=== PATIENT | female | born 1940 | race Caucasian/White ===

== ENCOUNTER 2016-12-08 07:58 | Emergency (ER) | payer OTHER ==
[~2016-12-08] VITALS: Ht 160 cm; Wt 72.5 kg
[~2016-12-08 07:58] MED LIST: DILT300C24 PO; LISI-788 PO; SIMV40TA4 PO
[2016-12-08 08:03] VITALS: TEMP 36.4; Ht 160 cm; Wt 72.5 kg
[2016-12-08] MEDS ORDERED: SODIUM CHLORIDE 0.9% 500ML 500 ML IV STA (08:29)
[2016-12-08 08:54] LABS: BASO % 0.2 %; BASO ABS # 0.02 K/uL (0-0.2); COMPLETE YES; EOS % 0.2 %; HEMATOCRIT 38.4 % (37-47); IG% 0.3 %; LYMPH % 7.7 %; LYMPH ABS # 0.93 K/uL (1.2-3.4); MEAN CELL VOLUME 93.2 fL (80-100); MEAN CORPUSCULAR HEMOGLOBIN 34.5 pg (25-34); MEAN PLATELET VOLUME 9.1 fL (7.4-10.4); MONO % 7.2 %; NEUT % 84.4 %; PLATELET COUNT 350 K/uL (130-400); RED BLOOD COUNT 4.12 M/uL (4.2-5.4); WHITE BLOOD COUNT 12.14 K/uL (4.8-10.8)
--- NOTE | 2016-12-08 09:00 | EMERGENCY ROOM VISIT NOTE ---
ED Visit Note First contact with patient: 08:04 I have seen and examined this patient with Lawson Camejo and generally agree with the treatment plan as discussed. Current/Historical Medications Scheduled Diltiazem Hcl Extended Release (Taztia Xt), 300 MG PO HS Lisinopril/Hctz (Zestoretic 20MG/25MG), 1 TAB PO DAILY Simvastatin (Zocor), 40 MG PO QPM Allergies Coded Allergies: Diazepam (Verified Allergy, Unknown, LISTED BY MD ADVERSE RX, 12/08/16) Meperidine (Verified Allergy, Unknown, 12/08/16) Vital Signs Date Time Temp Pulse Resp B/P Pulse Ox O2 Delivery O2 Flow Rate FiO2 12/08/16 08:45 75 12/08/16 08:39 Room Air 12/08/16 08:03 36.4 75 18 155/76 97 Room Air Laboratory Results 12/08/16 08:40 Red Blood Count 4.12, Mean Corpuscular Volume 93.2, Mean Corpuscular Hemoglobin 34.5, Mean Corpuscular Hemoglobin Concent 37.0, Mean Platelet Volume 9.1, Neutrophils (%) (Auto) 84.4, Lymphocytes (%) (Auto) 7.7, Monocytes (%) (Auto) 7.2, Eosinophils (%) (Auto) 0.2, Basophils (%) (Auto) 0.2, Neutrophils # (Auto) 10.24, Lymphocytes # (Auto) 0.93, Monocytes # (Auto) 0.88, Eosinophils # (Auto) 0.03, Basophils # (Auto) 0.02 Test 12/08/16 08:40 12/08/16 08:45 White Blood Count 12.14 K/uL (4.8-10.8) Red Blood Count 4.12 M/uL (4.2-5.4) Hemoglobin 14.2 g/dL (12.0-16.0) Hematocrit 38.4 % (37-47) Mean Corpuscular Volume 93.2 fL (80-100) Mean Corpuscular Hemoglobin 34.5 pg (25-34) Mean Corpuscular Hemoglobin Concent 37.0 g/dl (32-36) Platelet Count 350 K/uL (130-400) Mean Platelet Volume 9.1 fL (7.4-10.4) Neutrophils (%) (Auto) 84.4 % Lymphocytes (%) (Auto) 7.7 % Monocytes (%) (Auto) 7.2 % Eosinophils (%) (Auto) 0.2 % Basophils (%) (Auto) 0.2 % Neutrophils # (Auto) 10.24 K/uL (1.4-6.5) Lymphocytes # (Auto) 0.93 K/uL (1.2-3.4) Monocytes # (Auto) 0.88 K/uL (0.11-0.59) Eosinophils # (Auto) 0.03 K/uL (0-0.5) Basophils # (Auto) 0.02 K/uL (0-0.2) RDW Standard Deviation 40.2 fL (36.4-46.3) RDW Coefficient of Variation 11.8 % (11.5-14.5) Immature Granulocyte % (Auto) 0.3 % Immature Granulocyte # (Auto) 0.04 K/uL (0.00-0.02) Departure Information Referrals Zaheer Merlos M.D. (PCP) Patient Instructions My [facility] [address]
--- NOTE | 2016-12-08 09:05 | DIAGNOSTIC IMAGING REPORT ---
CHEST ONE VIEW PORTABLE HISTORY: EVALUATE ALTERED MENTAL STATUS/WEAKNESS COMPARISON: Chest 04/05/2016. FINDINGS: The lungs are clear. Cardiac silhouette is normal in size. No pleural effusions. No pneumothorax. IMPRESSION: No acute process. Electronically signed by: Dharmesh Reddy M.D. 12/08/2016 9:03 AM Dictated Date/Time: 12/08/2016 9:01 AM
[2016-12-08 09:06] LABS: PROTHROMBIN TIME (PATIENT) 10.4 SECONDS (9.0-12.0)
--- NOTE | 2016-12-08 09:06 | DIAGNOSTIC IMAGING REPORT ---
LEFT ANKLE MIN 3 VIEWS ROUTINE CLINICAL HISTORY: Left ankle pain. Weakness. COMPARISON: Left foot radiograph April 06, 2011. FINDINGS: Alignment of the left ankle is anatomic. There is no acute fracture. There is moderate plantar calcaneal spurring. Irregularity of the fibular tip is likely old. There may be subchondral lucency and sclerosis of the medial talar dome. This measures approximately 5 mm in extent. IMPRESSION: 1. No acute fracture or dislocation of the left ankle. 2. Possible osteochondral abnormality of the medial talar dome. Electronically signed by: Madan Fletcher M.D. 12/08/2016 9:04 AM Dictated Date/Time: 12/08/2016 9:02 AM
[2016-12-08 09:11] LABS: URINE APPEARANCE CLOUDY (CLEAR); URINE BILIRUBIN NEG (NEG); URINE COLOR YELLOW; URINE EPITHELIAL CELL AUTO >30 /lpf (0-5); URINE NITRITE NEG (NEG); UROBILINOGEN NEG (NEG)
[2016-12-08 09:12] LABS: MANUAL MICROSCOPIC REQUIRED? NO; REVIEW REQ? NO
[2016-12-08 09:19] LABS: BUN/CREATININE RATIO 13.7 (10-20); CALCIUM 9.4 mg/dl (8.5-10.1); CREATININE 1.1 mg/dl (0.60-1.20); MAGNESIUM 1.8 mg/dl (1.8-2.4); POTASSIUM 3.8 mmol/L (3.5-5.1)
[2016-12-08 09:28] LABS: PHOSPHORUS 2.9 mg/dl (2.5-4.9); THYROID STIMULATING HORMONE 2.87 uIu/ml (0.300-4.500)
--- NOTE | 2016-12-08 09:31 | DIAGNOSTIC IMAGING REPORT ---
CT OF THE HEAD WITHOUT CONTRAST CLINICAL HISTORY: Possible syncope. COMPARISON STUDY: Head CT April 06, 2016. CT DOSE: 767.83 mGy.cm TECHNIQUE: Helical axial images of the head were obtained without IV contrast. Automated exposure control was utilized for the study. FINDINGS: No acute intracranial hemorrhage, midline shift or mass effect is present. Ventricular system is stable. Basilar cisterns are patent. There are no extra-axial collections. White matter hypodensity suggests small vessel disease. There are no findings to suggest acute dural sinus thrombosis or acute territorial infarct. Visualized portions of the sinuses and mastoid air cells are clear. IMPRESSION: No acute intracranial findings. No significant change since prior exam. Electronically signed by: Madan Fletcher M.D. 12/08/2016 9:30 AM Dictated Date/Time: 12/08/2016 9:27 AM
[2016-12-08 09:41] VITALS: BP 153/70; PULSE 66; O2SAT 96
[2016-12-08] MEDS ORDERED: ACETAMINOPHEN 500 MG TAB PO ONE (11:12)
--- NOTE | 2016-12-08 14:19 | EMERGENCY ROOM VISIT NOTE ---
History First contact with patient: 08:04 Chief Complaint: FALL Stated Complaint: FELL THIS AM, LEFT ANKLE PAIN History of Present Illness The patient is a 76 year old female who presents to the Emergency Room with complaints of injuries after she fell in her kitchen this morning. The patient reports that she felt fine yesterday and this morning upon awakening. The patient is uncertain whether she tripped and fell, but does not know for sure. The patient reports that she had a seizure last March. She was not put on any medications. She believes that it may have been because of stress due to her 's last November. The patient currently feels fine except for left ankle pain. She denies any recent chest pain, shortness of breath, abdominal pain, urinary symptoms, diarrhea or headaches. She has been healthy so far this winter. She denies any prior cardiopulmonary history. She currently rates her ankle discomfort a 2 out of 10. Review of Systems HEENT: Denies dizziness, visual problems, hearing loss, tinnitus. Denies difficulty swallowing or oral lesions. PULMONARY: Denies cough, shortness of breath, sputum production or hemoptysis. CARDIOVASCULAR: Denies chest pain, palpitations, dyspnea on exertion, orthopnea or peripheral edema. GASTROINTESTINAL: Denies diarrhea, constipation, nausea, vomiting, or abdominal pain. GENITOURINARY: Denies dysuria, frequency, urgency or nocturia. NEUROLOGIC: Prior history of seizure. MUSCULOSKELETAL: Denies history of joint tenderness/swelling. SKIN: Denies rashes or lesions. PSYCHIATRIC: Denies history of depression or mental illness. ENDOCRINE: Denies history of diabetes or thyroid disorders. Past Medical/Surgical History Medical Problems: (1) Acute Kidney Failure, Unspecified (2) Anemia Nos (3) Anxiety State Nos (4) Aortic Valve Disorder (5) Diab Macrina Wo Compl, Type Ii Or Unspec Type, Not Uncntrld (6) Hypercholesterolemia (7) Hypertension Nos (8) Hypothyroidism, Unspecified (9) Syncope and collapse Family History FH: diabetes mellitus FH: heart disease FH: hypertension Social History Smoking Status: Former Smoker Alcohol Use: none Drug Use: none Marital Status: Occupation Status: retired Current/Historical Medications Scheduled Diltiazem Hcl Extended Release (Taztia Xt), 300 MG PO HS Lisinopril/Hctz (Zestoretic 20MG/25MG), 1 TAB PO DAILY Simvastatin (Zocor), 40 MG PO QPM Allergies Coded Allergies: Diazepam (Verified Allergy, Unknown, LISTED BY MD ADVERSE RX, 12/08/16) Meperidine (Verified Allergy, Unknown, 12/08/16) Physical Exam Vital Signs Date Time Temp Pulse Resp B/P Pulse Ox O2 Delivery O2 Flow Rate FiO2 12/08/16 09:41 66 16 153/70 96 Room Air 12/08/16 08:45 75 12/08/16 08:39 Room Air 12/08/16 08:03 36.4 75 18 155/76 97 Room Air Physical Exam CONSTITUTIONAL: Healthy and well nourished. Alert and oriented X 3 with positive affect. GCS 15. Patient does not appear in any acute distress. HEENT: Normocephalic, atraumatic. Pupils equal, round and reactive. No epistaxis, hemotympanum, subconjunctival hemorrhage, raccoon's eyes or Gray sign. NECK: Full active range of motion without discomfort. RESPIRATORY: Clear to auscultation bilaterally with no wheezing, crackles, rhonchi or stridor. CARDIOVASCULAR: Regular rate and rhythm with no murmurs, rubs or gallops. GASTROINTESTINAL: Bowel sounds present in all quadrants. Soft and nontender to palpation. MUSCULOSKELETAL: Mentation shows mild tenderness to palpation about the left ankle. No obvious soft tissue edema, ecchymosis or open wounds. Negative anterior draw. No tenderness to palpation through the dorsal midfoot, metatarsals, phalanges, calcaneus, Achilles tendon or proximal fibular region. Pedal pulses are intact. Equal upsetting machine operator strength bilaterally. INTEGUMENTARY: No rash or other significant dermatologic conditions noted. NEUROLOGIC: Cranial nerves II-XII grossly intact. Upper and lower extremities are sensory intact. Medical Decision & Procedures ER Provider Diagnostic Interpretation: My interpretation of an ECG shows a normal sinus rhythm of 69 bpm with a PVC. No ST elevation, depression or other conduction abnormalities noted. My interpretation of a portable chest x-ray does not show any consolidations, pneumothorax, mediastinal widening or cardiac prominence. Radiologist report is as follows: CHEST ONE VIEW PORTABLE HISTORY: EVALUATE ALTERED MENTAL STATUS/WEAKNESS COMPARISON: Chest 04/05/2016. FINDINGS: The lungs are clear. Cardiac silhouette is normal in size. No pleural effusions. No pneumothorax. IMPRESSION: No acute process. My interpretation of a left ankle x-ray does not show any acute fractures, dislocation or ankle mortise asymmetry. Radiologist does make mention of a possible also chondral defect of the medial talar dome. Radiologist report is as follows: LEFT ANKLE MIN 3 VIEWS ROUTINE CLINICAL HISTORY: Left ankle pain. Weakness. COMPARISON: Left foot radiograph April 06, 2011. FINDINGS: Alignment of the left ankle is anatomic. There is no acute fracture. There is moderate plantar calcaneal spurring. Irregularity of the fibular tip is likely old. There may be subchondral lucency and sclerosis of the medial talar dome. This measures approximately 5 mm in extent. IMPRESSION: 1. No acute fracture or dislocation of the left ankle. 2. Possible osteochondral abnormality of the medial talar dome. Noncontrast CT of the head does not show any intracranial bleed, midline shift or mass effect. Radiologist report is as follows: CT OF THE HEAD WITHOUT CONTRAST CLINICAL HISTORY: Possible syncope. COMPARISON STUDY: Head CT April 06, 2016. CT DOSE: 767.83 mGy.cm TECHNIQUE: Helical axial images of the head were obtained without IV contrast. Automated exposure control was utilized for the study. FINDINGS: No acute intracranial hemorrhage, midline shift or mass effect is present. Ventricular system is stable. Basilar cisterns are patent. There are no extra-axial collections. White matter hypodensity suggests small vessel disease. There are no findings to suggest acute dural sinus thrombosis or acute territorial infarct. Visualized portions of the sinuses and mastoid air cells are clear. IMPRESSION: No acute intracranial findings. No significant change since prior exam. Laboratory Results 12/08/16 08:40 Red Blood Count 4.12, Mean Corpuscular Volume 93.2, Mean Corpuscular Hemoglobin 34.5, Mean Corpuscular Hemoglobin Concent 37.0, Mean Platelet Volume 9.1, Neutrophils (%) (Auto) 84.4, Lymphocytes (%) (Auto) 7.7, Monocytes (%) (Auto) 7.2, Eosinophils (%) (Auto) 0.2, Basophils (%) (Auto) 0.2, Neutrophils # (Auto) 10.24, Lymphocytes # (Auto) 0.93, Monocytes # (Auto) 0.88, Eosinophils # (Auto) 0.03, Basophils # (Auto) 0.02 12/08/16 08:40 Test 12/08/16 08:40 12/08/16 08:45 12/08/16 08:50 White Blood Count 12.14 K/uL (4.8-10.8) Red Blood Count 4.12 M/uL (4.2-5.4) Hemoglobin 14.2 g/dL (12.0-16.0) Hematocrit 38.4 % (37-47) Mean Corpuscular Volume 93.2 fL (80-100) Mean Corpuscular Hemoglobin 34.5 pg (25-34) Mean Corpuscular Hemoglobin Concent 37.0 g/dl (32-36) Platelet Count 350 K/uL (130-400) Mean Platelet Volume 9.1 fL (7.4-10.4) Neutrophils (%) (Auto) 84.4 % Lymphocytes (%) (Auto) 7.7 % Monocytes (%) (Auto) 7.2 % Eosinophils (%) (Auto) 0.2 % Basophils (%) (Auto) 0.2 % Neutrophils # (Auto) 10.24 K/uL (1.4-6.5) Lymphocytes # (Auto) 0.93 K/uL (1.2-3.4) Monocytes # (Auto) 0.88 K/uL (0.11-0.59) Eosinophils # (Auto) 0.03 K/uL (0-0.5) Basophils # (Auto) 0.02 K/uL (0-0.2) RDW Standard Deviation 40.2 fL (36.4-46.3) RDW Coefficient of Variation 11.8 % (11.5-14.5) Immature Granulocyte % (Auto) 0.3 % Immature Granulocyte # (Auto) 0.04 K/uL (0.00-0.02) Prothrombin Time 10.4 SECONDS (9.0-12.0) Prothromb Time International Ratio 1.0 (0.9-1.1) Anion Gap 11.0 mmol/L (3-11) Est Creatinine Clear Calc Drug Dose 41.5 ml/min Estimated GFR () 56.5 Estimated GFR (Non- 48.7 BUN/Creatinine Ratio 13.7 (10-20) Calcium Level 9.4 mg/dl (8.5-10.1) Phosphorus Level 2.9 mg/dl (2.5-4.9) Magnesium Level 1.8 mg/dl (1.8-2.4) Total Bilirubin 0.6 mg/dl (0.2-1) Direct Bilirubin 0.1 mg/dl (0-0.2) Aspartate Amino Transf (AST/SGOT) 24 U/L (15-37) Alanine Aminotransferase (ALT/SGPT) 25 U/L (12-78) Alkaline Phosphatase 108 U/L (45-117) Total Creatine Kinase 111 U/L (26-192) Pro-B-Type Natriuretic Peptide 110 pg/ml (0-1800) Total Protein 7.4 gm/dl (6.4-8.2) Albumin 3.9 gm/dl (3.4-5.0) Thyroid Stimulating Hormone (TSH) 2.870 uIu/ml (0.300-4.500) Urine Color YELLOW Urine Appearance CLOUDY (CLEAR) Urine pH 6.0 (4.5-7.5) Urine Specific [place] 1.020 (1.000-1.030) Urine Protein TRACE (NEG) Urine Glucose (UA) NEG (NEG) Urine Ketones TRACE (NEG) Urine Occult Blood NEG (NEG) Urine Nitrite NEG (NEG) Urine Bilirubin NEG (NEG) Urine Urobilinogen NEG (NEG) Urine Leukocyte Esterase SMALL (NEG) Urine WBC (Auto) 10-30 /hpf (0-5) Urine RBC (Auto) 0-4 /hpf (0-4) Urine Hyaline Casts (Auto) 1-5 /lpf (0-5) Urine Epithelial Cells (Auto) >30 /lpf (0-5) Urine Bacteria (Auto) 1+ (NEG) Bedside Troponin I 0.000 ng/ml (0-0.045) The above labs were reviewed. Medications Administered Medications (Trade) Dose Ordered Sig/Kecia Route Start Time Stop Time Status Last Admin Dose Admin Sodium Chloride (Nss 500ml) 500 ml @ 999 mls/hr Q31M STAT IV 12/08/16 08:29 12/08/16 08:59 DC 2/16/17 08:29 999 MLS/HR Acetaminophen (Tylenol Tab) 1,000 mg STK-MED ONCE PO 12/08/16 11:12 12/08/16 11:14 DC 12/08/16 11:12 1,000 MG ED Course Patient history and physical exam were performed. Nurse's notes were reviewed. The patient refused any analgesics. IV access was established, and labs were drawn. The patient was hydrated with a 500 mL normal saline bolus. Review of labs shows no significant acute findings. ECG and portable chest x-ray were normal. Left ankle x-ray does not show any acute fractures or mortise asymmetry. A possible osteochondral defect is noted. It does not appear acute. Noncontrast CT of the head was also normal. The case was discussed with Dr. Rose, ED attending physician, who agrees with workup and plan of care. The patient was encouraged to intermittently apply ice to the ankle. Minimize weightbearing until symptoms improve. An ankle gel splint was applied. I did encourage her to follow-up with her PCP within the next 2-3 days for reevaluation. She did request that we call the office for an appointment. Our senior case manager was able to schedule an appointment for her Monday morning at 9 AM. The patient was instructed to return to the emergency department for any recurrent syncope, chest pain, shortness of breath or other concerning symptoms. The patient was also encouraged to remain well-hydrated. The patient was happy with plan of care, voiced understanding of all discharge instructions, and denied any significant discomfort at the time of discharge. Medical Decision Impression Primary Impression: Syncope and collapse Additional Impression: Left ankle sprain Departure Information Referrals RV. Newby MD (PCP) Patient Instructions My [facility] Problem Qualifiers Additional Impression: Left ankle sprain Encounter type: initial encounter Involved ligament of ankle: unspecified ligament Qualified Codes: S93.402A - Sprain of unspecified ligament of left ankle, initial encounter
[2017-07-11] MEDS ORDERED: DSY50 PO (14:09)
[2017-07-11] MEDS ORDERED: VTMD1000 PO (14:09)
[2017-07-11] MEDS ORDERED: ZLF50 PO (14:09)
[2017-07-11] MEDS ORDERED: ARC5 PO (14:09)
== END 2016-12-08 11:19 | disposition home or self-care (01) ==
LOC: C.EDB 08:00
DX: R55 Syncope and collapse (principal); S93.402A Sprain of unspecified ligament of left ankle, initial encounter; W19.XXXA Unspecified fall, initial encounter; Y92.010 Kitchen of single-family (private) house as the place of occurrence of the external cause; N17.9 Acute kidney failure, unspecified; D64.9 Anemia, unspecified; F41.9 Anxiety disorder, unspecified; I35.8 Other nonrheumatic aortic valve disorders; E11.9 Type 2 diabetes mellitus without complications; E78.00 Pure hypercholesterolemia, unspecified; I10 Essential (primary) hypertension; E03.9 Hypothyroidism, unspecified; Z83.3 Family history of diabetes mellitus; Z82.49 Family history of ischemic heart disease and other diseases of the circulatory system; Z87.891 Personal history of nicotine dependence; Z79.899 Other long term (current) drug therapy

== ENCOUNTER 2017-02-15 14:12 | Emergency (ER) | payer OTHER ==
[~2017-02-15] VITALS: Ht 160 cm; Wt 73.0 kg
[2017-02-15 14:29] VITALS: TEMP 36.8; Ht 160 cm; Wt 73.0 kg
--- NOTE | 2017-02-15 15:40 | EMERGENCY ROOM VISIT NOTE ---
History Report prepared by Toribio: Chris Carty Under the Supervision of: Dr. Leonard Tinsley D.O. First contact with patient: 14:55 Chief Complaint: PSYCHIATRIC PROBLEMS Stated Complaint: NERVOUS,ANXIOUS,FORGETFULLNESS History of Present Illness The patient is a 76 year old female who presents to the Emergency Room with complaints of wanting a sudden psychiatric evaluation beginning just prior to arrival. As per cousin, the patient received a letter by [employer] to turn in her license by February 21, or the police would come get it from the patient. She states she brought in the patient to achieve clearance to keep her license. The cousin notes the patient has been experiencing forgetfulness for the past year, since her in December 2015. She states that the patient has been consistent with her forgetfulness over the past year. The cousin notes the patient has seen her PCP for her forgetfulness and this has not changed for the past year. The patient denies recent falls, recent trauma, and taking blood thinners. Pt denies suicidal and homicidal ideation, headache, change in vision , fevers, chest pain, shortness of breath, nausea, vomiting, diarrhea, pain with urination, and melena. Source of History: patient, family (cousin) Onset: just prior to arrival Position: other (global) Quality: other (wanting psych evaluation) Timing: other (sudden) Note: Associated symptoms: persistent forgetfulness beginning one year ago. Review of Systems See HPI for pertinent positives & negatives. A total of 10 systems reviewed and were otherwise negative. Past Medical & Surgical Medical Problems: (1) Acute Kidney Failure, Unspecified (2) Anemia Nos (3) Anxiety State Nos (4) Aortic Valve Disorder (5) Diab Macrina Wo Compl, Type Ii Or Unspec Type, Not Uncntrld (6) Hypercholesterolemia (7) Hypertension Nos (8) Hypothyroidism, Unspecified (9) Syncope and collapse Family History FH: diabetes mellitus FH: heart disease FH: hypertension Social History Smoking Status: Former Smoker Alcohol Use: none Drug Use: none Marital Status: Occupation Status: retired Current/Historical Medications Scheduled Diltiazem Hcl Extended Release (Taztia Xt), 300 MG PO HS Lisinopril/Hctz (Zestoretic 20MG/25MG), 1 TAB PO DAILY Simvastatin (Zocor), 40 MG PO QPM Allergies Coded Allergies: Diazepam (Verified Allergy, Unknown, LISTED BY MD ADVERSE RX, 02/15/17) Meperidine (Verified Allergy, Unknown, 02/15/17) Physical Exam Vital Signs Date Time Temp Pulse Resp B/P Pulse Ox O2 Delivery O2 Flow Rate FiO2 02/15/17 18:25 62 16 172/69 98 02/15/17 16:41 62 16 122/57 97 Room Air 02/15/17 14:29 36.8 76 18 146/67 95 Room Air Physical Exam GENERAL: sitting up in bed, alert, well appearing, well nourished, no distress, non-toxic EYE EXAM: normal conjunctiva, PERRL and EOM's intact OROPHARYNX: no exudate, no erythema, lips, buccal mucosa, and tongue normal and mucous membranes are moist NECK: supple, no nuchal rigidity, no adenopathy, non-tender LUNGS: Clear to auscultation. Normal chest wall mechanics HEART: no murmurs, S1 normal and S2 normal ABDOMEN: abdomen soft, non-tender, normo-active bowel sounds, no masses, no rebound or guarding. BACK: Back is symmetrical on inspection and there is no deformity, no midline tenderness, no CVA tenderness. SKIN: no rashes and no bruising UPPER EXTREMITIES: upper extremities are grossly normal. LOWER EXTREMITIES: No pitting edema. NEURO EXAM: Alert, oriented to person, place, but not year, cranial nerves II- XII intact, normal speech, no weakness of arms, no weakness of legs. PSYCH: Denies homicidal and suicidal ideation. Medical Decision & Procedures Laboratory Results 02/15/17 15:50 Red Blood Count 4.10, Mean Corpuscular Volume 92.2, Mean Corpuscular Hemoglobin 33.9, Mean Corpuscular Hemoglobin Concent 36.8, Mean Platelet Volume 9.1, Neutrophils (%) (Auto) 71.3, Lymphocytes (%) (Auto) 19.1, Monocytes (%) (Auto) 8.9, Eosinophils (%) (Auto) 0.2, Basophils (%) (Auto) 0.2, Neutrophils # (Auto) 8.55, Lymphocytes # (Auto) 2.29, Monocytes # (Auto) 1.06, Eosinophils # (Auto) 0.02, Basophils # (Auto) 0.02 02/15/17 15:50 Test 02/15/17 15:45 4/26/17 15:50 Urine Color DK YELLOW Urine Appearance CLOUDY (CLEAR) Urine pH 5.0 (4.5-7.5) Urine Specific Mize 1.023 (1.000-1.030) Urine Protein NEG (NEG) Urine Glucose (UA) TRACE (NEG) Urine Ketones TRACE (NEG) Urine Occult Blood NEG (NEG) Urine Nitrite NEG (NEG) Urine Bilirubin NEG (NEG) Urine Urobilinogen NEG (NEG) Urine Leukocyte Esterase SMALL (NEG) Urine WBC (Auto) 10-30 /hpf (0-5) Urine RBC (Auto) 0-4 /hpf (0-4) Urine Hyaline Casts (Auto) 1-5 /lpf (0-5) Urine Epithelial Cells (Auto) >30 /lpf (0-5) Urine Bacteria (Auto) 1+ (NEG) White Blood Count 11.97 K/uL (4.8-10.8) Red Blood Count 4.10 M/uL (4.2-5.4) Hemoglobin 13.9 g/dL (12.0-16.0) Hematocrit 37.8 % (37-47) Mean Corpuscular Volume 92.2 fL (80-100) Mean Corpuscular Hemoglobin 33.9 pg (25-34) Mean Corpuscular Hemoglobin Concent 36.8 g/dl (32-36) Platelet Count 411 K/uL (130-400) Mean Platelet Volume 9.1 fL (7.4-10.4) Neutrophils (%) (Auto) 71.3 % Lymphocytes (%) (Auto) 19.1 % Monocytes (%) (Auto) 8.9 % Eosinophils (%) (Auto) 0.2 % Basophils (%) (Auto) 0.2 % Neutrophils # (Auto) 8.55 K/uL (1.4-6.5) Lymphocytes # (Auto) 2.29 K/uL (1.2-3.4) Monocytes # (Auto) 1.06 K/uL (0.11-0.59) Eosinophils # (Auto) 0.02 K/uL (0-0.5) Basophils # (Auto) 0.02 K/uL (0-0.2) RDW Standard Deviation 38.7 fL (36.4-46.3) RDW Coefficient of Variation 11.5 % (11.5-14.5) Immature Granulocyte % (Auto) 0.3 % Immature Granulocyte # (Auto) 0.03 K/uL (0.00-0.02) Anion Gap 7.0 mmol/L (3-11) Est Creatinine Clear Calc Drug Dose 38.2 ml/min Estimated GFR () 50.8 Estimated GFR (Non- 43.9 BUN/Creatinine Ratio 18.0 (10-20) Calcium Level 9.6 mg/dl (8.5-10.1) Total Bilirubin 0.3 mg/dl (0.2-1) Direct Bilirubin < 0.1 mg/dl (0-0.2) Aspartate Amino Transf (AST/SGOT) 20 U/L (15-37) Alanine Aminotransferase (ALT/SGPT) 28 U/L (12-78) Alkaline Phosphatase 129 U/L (45-117) Total Protein 7.7 gm/dl (6.4-8.2) Albumin 4.2 gm/dl (3.4-5.0) Lipase 269 U/L (73-393) Laboratory results per my review. Medications Administered Medications (Trade) Dose Ordered Sig/Kecia Route Start Time Stop Time Status Last Admin Dose Admin Sodium Chloride (Nss 500ml) 500 ml @ 999 mls/hr Q31M STAT IV 02/15/17 16:31 02/15/17 17:01 DC 02/15/17 16:31 999 MLS/HR ED Course ED COURSE: Vital signs were reviewed and showed normal vitals. The patients medical record was reviewed The above diagnostic studies were performed and reviewed. ED treatments and interventions as stated above. 1458: The patient was evaluated in room A6. A complete history and physical examination was performed. It is noted Lisette, the psychiatric case managers, discussed the patient's case with the patient's PCP. It is noted the PCP was the one who petitioned the letter. The office of aging is already involved. 1631: Ordered Sodium Chloride 500 ml @ 999 mls/hr IV. 1651: Updated the patient at this time. The patient and her cousin do not want imagine done. They are comfortable with the plan. 1724: I spoke to SUJEY Mejia (Internal Medicine) about the patient's case, and the patient will follow up with her. 1803: Upon reevaluation, the patient is doing well.I discussed my findings with the patient and she understands and agrees with the treatment plan. Based on the patients age, coexisting illnesses, exam and lab findings the decision to treat as an outpatient was made. The patient remained stable while under my care. The patient appeared well at the time of discharge. Medical Decision Differential diagnosis: Etiologies such as mood disorder, infection, hypoglycemia, electrolyte abnormalities, cardiac sources, intracerebral event, toxicologic, neurologic, as well as others were entertained. Patient is a 76-year-old female brought in by her cousin as they've received a pen that form stating that she is losing her license in February. They came in for an evaluation to see if they can get this back. Patient denies all complaints. She is not oriented to year. Family notes that this has been present for the past year. Nothing has worsened recently. Patient is otherwise completely neurologically intact. Labs were obtained and show no significant leukocytosis or anemia. BMP shows a mild hyponatremia at 128. Upon review of her chart previous sodiums were 131 and 130 respectively. Bilirubin along with LFTs and lipase was unremarkable. UA was contaminated with multiple epithelial cells. Patient has no urinary complaints. Likely contaminant. Discussed with PCP and they'll follow her up and notes that none of this is new. Based on this I felt no need to CT her head. Discussed with Pt concerning signs and symptoms to watch out for. Pt was instructed to follow up with their PCP and discussed with the patient their option to return to the ED at anytime for persistent or worsening symptoms. The appropriate anticipatory guidance and out-patient management, including indications for return to the emergency department, were explained at length to the patient and understood. Consults Time Called: 1720 Consulting Physician: SUJEY Mejia (Internal Medicine) Returned Call: 1724 I spoke to SUJEY Mejia (Internal Medicine) about the patient's case, and the patient will follow up with her. Impression Primary Impression: Dementia Additional Impression: Hyponatremia Scribe Attestation The scribe's documentation has been prepared under my direction and personally reviewed by me in its entirety. I confirm that the note above accurately reflects all work, treatment, procedures, and medical decision making performed by me. Departure Information Dispostion Home / Self-Care Referrals No Doctor, Assigned (PCP) Forms HOME CARE DOCUMENTATION FORM, IMPORTANT VISIT INFORMATION, WORK / SCHOOL INSTRUCTIONS Patient Instructions Dementia, ED Hyponatremia, My [facility] Additional Instructions Please follow up with your primary care doctor with in the next 24 hours. Any worsening of your symptoms, please return to the ED immediately. This includes new or worsening confusion, weakness in the arms or legs, passing out, chest pain, shortness of breath, fevers greater than 100.4 or any other concerning signs or symptoms from your stand point. Problem Qualifiers Primary Impression: Dementia Dementia type: unspecified type Dementia behavioral disturbance: without behavioral disturbance Qualified Codes: F03.90 - Unspecified dementia without behavioral disturbance
[2017-02-15 16:14] LABS: URINE APPEARANCE CLOUDY (CLEAR); URINE BILIRUBIN NEG (NEG); URINE COLOR DK YELLOW; URINE EPITHELIAL CELL AUTO >30 /lpf (0-5); URINE NITRITE NEG (NEG); URINE SPECIFIC GRAVITY 1.023 (1.000-1.030); UROBILINOGEN NEG (NEG); ZZUR CULT IF INDIC CLEAN CATCH YES
[2017-02-15 16:15] LABS: MANUAL MICROSCOPIC REQUIRED? NO; REVIEW REQ? NO
[2017-02-15 16:16] LABS: BASO % 0.2 %; BASO ABS # 0.02 K/uL (0-0.2); COMPLETE YES; EOS % 0.2 %; HEMATOCRIT 37.8 % (37-47); IG% 0.3 %; LYMPH % 19.1 %; LYMPH ABS # 2.29 K/uL (1.2-3.4); MEAN CELL VOLUME 92.2 fL (80-100); MEAN CORPUSCULAR HEMOGLOBIN 33.9 pg (25-34); MEAN CORPUSCULAR HGB CONC 36.8 g/dl (32-36); MEAN PLATELET VOLUME 9.1 fL (7.4-10.4); MONO % 8.9 %; NEUT % 71.3 %; PLATELET COUNT 411 K/uL (130-400); WHITE BLOOD COUNT 11.97 K/uL (4.8-10.8)
[2017-02-15 16:22] LABS: ALT/SGPT 28 U/L (12-78); AST/SGOT 20 U/L (15-37); BLOOD UREA NITROGEN 22 mg/dl (7-18); CALCIUM 9.6 mg/dl (8.5-10.1); CARBON DIOXIDE 27 mmol/L (21-32); CHLORIDE 94 mmol/L (98-107); GLUCOSE 217 mg/dl (70-99); SODIUM 128 mmol/L (136-145)
[2017-02-15 16:25] LABS: ALKALINE PHOSPHATASE 129 U/L (45-117)
[2017-02-15] MEDS ORDERED: SODIUM CHLORIDE 0.9% 500ML 500 ML IV STA (16:31)
[2017-02-15 18:25] VITALS: BP 172/69; PULSE 62; O2SAT 98
[2017-07-11] MEDS ORDERED: ARC5 PO (14:09)
[2017-07-11] MEDS ORDERED: DSY50 PO (14:09)
[2017-07-11] MEDS ORDERED: ZLF50 PO (14:09)
[2017-07-11] MEDS ORDERED: VTMD1000 PO (14:09)
== END 2017-02-15 18:15 | disposition home or self-care (01) ==
LOC: C.EDB 14:13 → C.EDA 18:15
DX: F03.90 Unspecified dementia, unspecified severity, without behavioral disturbance, psychotic disturbance, mood disturbance, and anxiety (principal); E87.1 Hypo-osmolality and hyponatremia; N17.9 Acute kidney failure, unspecified; D64.9 Anemia, unspecified; F41.9 Anxiety disorder, unspecified; I35.8 Other nonrheumatic aortic valve disorders; E11.9 Type 2 diabetes mellitus without complications; E78.00 Pure hypercholesterolemia, unspecified; I10 Essential (primary) hypertension; E03.9 Hypothyroidism, unspecified; Z83.3 Family history of diabetes mellitus; Z82.49 Family history of ischemic heart disease and other diseases of the circulatory system; Z87.891 Personal history of nicotine dependence; Z79.899 Other long term (current) drug therapy

== ENCOUNTER → 2017-03-07 | Outpatient (CLI) | payer OTHER ==
[~2017-03-07] MED LIST changes: +ARC5 PO; +CHOL2000 PO; +DILT-117 PO; +DONE1TAB11 PO; +DSY50 PO; +SERT25TA PO; +SERT50TA PO; +SIMV40TA2 PO; +TRAZ50TA35 PO; +VTMD1000 PO; +ZLF50 PO
[2017-03-07 10:53] LABS: ALT/SGPT 26 U/L (12-78); AST/SGOT 23 U/L (15-37); BLOOD UREA NITROGEN 18 mg/dl (7-18); BUN/CREATININE RATIO 18.4 (10-20); CARBON DIOXIDE 28 mmol/L (21-32); CHLORIDE 99 mmol/L (98-107); CHOLESTEROL 159 mg/dl (0-200); GLUCOSE 137 mg/dl (70-99); POTASSIUM 4.1 mmol/L (3.5-5.1); SODIUM 134 mmol/L (136-145); TRIGLYCERIDES 89 mg/dl (0-150); VERY LOW DENSITY LIPOPROT CALC 18 mg/dl
[2017-03-07 10:54] LABS: CALCIUM 9.9 mg/dl (8.5-10.1)
[2017-03-07 11:03] LABS: ALB/GLOB RATIO 1.2 (0.9-2); ALKALINE PHOSPHATASE 87 U/L (45-117); HDL CHOLESTEROL 80 mg/dl; LDL CHOLESTEROL CALCULATED 61 mg/dl
[2017-03-07 11:08] LABS: ESTIMATED AVERAGE GLUCOSE 148 mg/dl; HA1C FLAG Normal (Normal)
== END ==
LOC: C.LAB1850 09:03
PROVIDERS: ATTEND Internal Medicine
DX: E11.9 Type 2 diabetes mellitus without complications (principal)

== ENCOUNTER 2017-05-28 10:45 | Observation (INO) | payer OTHER ==
[~2017-05-28] VITALS: Ht 165.1 cm; Wt 67.8 kg
[~2017-05-28 10:45] MED LIST changes: -ARC5 PO; -CHOL2000 PO; -DILT-117 PO; -DONE1TAB11 PO; -DSY50 PO; -SERT25TA PO; -SERT50TA PO; -SIMV40TA2 PO; -TRAZ50TA35 PO; -VTMD1000 PO; -ZLF50 PO
[2017-05-28] MEDS ORDERED: SODIUM CHLORIDE 0.9% 1000ML 1,000 ML IV STA (11:17)
[2017-05-28] MEDS ORDERED: SODIUM CHLORIDE 0.9% 1000ML 250 ML IV STA (11:17)
[2017-05-28 11:52] LABS: BASO % 0.1 %; BASO ABS # 0.02 K/uL (0-0.2); COMPLETE YES; EOS % 0.3 %; HEMATOCRIT 38.5 % (37-47); IG% 0.4 %; LYMPH ABS # 1.62 K/uL (1.2-3.4); MEAN CELL VOLUME 91.2 fL (80-100); MEAN CORPUSCULAR HEMOGLOBIN 31.5 pg (25-34); MEAN CORPUSCULAR HGB CONC 34.5 g/dl (32-36); MEAN PLATELET VOLUME 8.8 fL (7.4-10.4); MONO % 5.6 %; NEUT % 81.6 %; PLATELET COUNT 392 K/uL (130-400); RED BLOOD COUNT 4.22 M/uL (4.2-5.4); WHITE BLOOD COUNT 13.49 K/uL (4.8-10.8)
[2017-05-28 12:03] LABS: BUN/CREATININE RATIO 17.9 (10-20); CALCIUM 9.6 mg/dl (8.5-10.1); CREATININE 1.1 mg/dl (0.60-1.20); POTASSIUM 4.1 mmol/L (3.5-5.1)
--- NOTE | 2017-05-28 12:09 | EMERGENCY ROOM VISIT NOTE ---
History Report prepared by Toribio: Harmony Recio Under the Supervision of: Dr. Raman Masterson M.D. First contact with patient: 11:13 Chief Complaint: SYNCOPE Stated Complaint: SYNCOPE Nursing Triage Summary: Patient arrives via ALS from [place] with complaints of having a syncopal episode while in [place]. Patient reports feeling flushed and hot when this occured. PT reports not eating this morning. Occasional memory loss. Nauseous on ambulance ride in, received 4mg Zofran by EMS. 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 The patient states that she was feeling fine this morning when she woke up. She did not eat breakfast this morning and went to [facility]. While at [facility] she began to feel flushed and dizzy. She fell over but denies any LOC. She denies hitting her head or any injury occurring from her fall. The patient states that she is feeling very hungry. She has a headache and thinks that it is due to not eating this morning. She was brought to the ED by ambulance and was nauseated en route. EMS gave her 4 mg of Zofran and her nausea improved. The patient denies chest pain, shortness of breath, melena, hematochezia, and any recent illness. She does not take any blood thinners. 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 A total of 10 systems reviewed and were otherwise negative. Past Medical & Surgical Medical Problems: (1) Acute Kidney Failure, Unspecified (2) Anemia Nos (3) Anxiety State Nos (4) Aortic Valve Disorder (5) Diab Macrina Wo Compl, Type Ii Or Unspec Type, Not Uncntrld (6) Hypercholesterolemia (7) Hypertension Nos (8) Hypothyroidism, Unspecified (9) Syncope and collapse Old medical records were reviewed. Nurse's notes were reviewed and I agree with. Family History FH: diabetes mellitus FH: heart disease FH: hypertension Social History Smoking Status: Never Smoker Alcohol Use: none Drug Use: none Marital Status: Occupation Status: retired Current/Historical Medications Scheduled Diltiazem Hcl Extended Release (Taztia Xt), 300 MG PO HS Lisinopril/Hctz (Zestoretic 20MG/25MG), 1 TAB PO DAILY Simvastatin (Zocor), 40 MG PO QPM Allergies Coded Allergies: Diazepam (Verified Allergy, Unknown, LISTED BY MD ADVERSE RX, 05/28/17) Meperidine (Verified Allergy, Unknown, 05/28/17) Physical Exam Vital Signs Date Time Temp Pulse Resp B/P (MAP) Pulse Ox O2 Delivery O2 Flow Rate FiO2 05/28/17 12:55 53 22 136/55 96 Room Air 05/28/17 11:02 52 05/28/17 11:01 46 117/65 49 114/48 05/28/17 10:57 36.4 51 16 132/52 100 Room Air 05/28/17 10:57 100 Room Air Physical Exam General: Well developed well nourished non ill appearing appearing older female complaining of feeling hungry otherwise in no acute distress, breathing comfortably on room air. Normal speech HEENT: Normal cephalic atraumatic. Pupils are equal round and reactive to light. Extraocular movements are intact. Oropharynx is pink with moist mucous membranes. No swelling of the mouth lips or tongue. Neck: Supple with a midline trachea. No meningeal signs or stiffness, no JVD or bruits. No Stridor. Chest: Clear to auscultation bilaterally. No wheezes or rhonchi. No increased work of breathing. Heart: regular rate and rhythm. Abdomen: Soft nontender, nondistended without rebound guarding or rigidity. Extremities: No cyanosis clubbing or edema. No calf tenderness or assymetry Spine/Back. Non tender to palpation. No CVA tenderness Skin: Good turgor without rashes. Neurologic exam: Cranial nerves two through 12 are intact. Motor and sensation are intact and symmetrical throughout. Medical Decision & Procedures ER Provider Diagnostic Interpretation: Prehospital ECG as interpreted by myself reveals a sinus bradycardia at 55, no ischemia. When compared to December 08, 2016, rate has decreased. Radiology results as stated below per my review and radiologist interpretation: CHEST ONE VIEW PORTABLE HISTORY: Atypical CHEST PAIN COMPARISON: Chest 12/08/2016. FINDINGS: The lungs are clear. Cardiac silhouette is normal in size. No pleural effusions. No pneumothorax. IMPRESSION: No acute process. Electronically signed by: Dharmesh Reddy M.D. 05/28/2017 12:09 PM Dictated Date/Time: 05/28/2017 12:08 PM Laboratory Results 05/28/17 11:30 Red Blood Count 4.22, Mean Corpuscular Volume 91.2, Mean Corpuscular Hemoglobin 31.5, Mean Corpuscular Hemoglobin Concent 34.5, Mean Platelet Volume 8.8, Neutrophils (%) (Auto) 81.6, Lymphocytes (%) (Auto) 12.0, Monocytes (%) (Auto) 5.6, Eosinophils (%) (Auto) 0.3, Basophils (%) (Auto) 0.1, Neutrophils # (Auto) 11.01, Lymphocytes # (Auto) 1.62, Monocytes # (Auto) 0.75, Eosinophils # (Auto) 0.04, Basophils # (Auto) 0.02 05/28/17 11:30 Test 05/28/17 11:30 White Blood Count 13.49 K/uL (4.8-10.8) Red Blood Count 4.22 M/uL (4.2-5.4) Hemoglobin 13.3 g/dL (12.0-16.0) Hematocrit 38.5 % (37-47) Mean Corpuscular Volume 91.2 fL (80-100) Mean Corpuscular Hemoglobin 31.5 pg (25-34) Mean Corpuscular Hemoglobin Concent 34.5 g/dl (32-36) Platelet Count 392 K/uL (130-400) Mean Platelet Volume 8.8 fL (7.4-10.4) Neutrophils (%) (Auto) 81.6 % Lymphocytes (%) (Auto) 12.0 % Monocytes (%) (Auto) 5.6 % Eosinophils (%) (Auto) 0.3 % Basophils (%) (Auto) 0.1 % Neutrophils # (Auto) 11.01 K/uL (1.4-6.5) Lymphocytes # (Auto) 1.62 K/uL (1.2-3.4) Monocytes # (Auto) 0.75 K/uL (0.11-0.59) Eosinophils # (Auto) 0.04 K/uL (0-0.5) Basophils # (Auto) 0.02 K/uL (0-0.2) RDW Standard Deviation 39.0 fL (36.4-46.3) RDW Coefficient of Variation 11.5 % (11.5-14.5) Immature Granulocyte % (Auto) 0.4 % Immature Granulocyte # (Auto) 0.05 K/uL (0.00-0.02) Anion Gap 7.0 mmol/L (3-11) Est Creatinine Clear Calc Drug Dose 38.5 ml/min Estimated GFR () 56.1 Estimated GFR (Non- 48.4 BUN/Creatinine Ratio 17.9 (10-20) Calcium Level 9.6 mg/dl (8.5-10.1) Total Bilirubin 0.5 mg/dl (0.2-1) Direct Bilirubin 0.1 mg/dl (0-0.2) Aspartate Amino Transf (AST/SGOT) 19 U/L (15-37) Alanine Aminotransferase (ALT/SGPT) 23 U/L (12-78) Alkaline Phosphatase 95 U/L (45-117) Total Creatine Kinase 81 U/L (26-192) Creatine Kinase MB 1.9 ng/ml (0.5-3.6) Creatine Kinase MB Ratio 2.3 (0-3.0) Total Protein 6.9 gm/dl (6.4-8.2) Albumin 3.8 gm/dl (3.4-5.0) Lipase 152 U/L (73-393) Thyroid Stimulating Hormone (TSH) 4.440 uIu/ml (0.300-4.500) Laboratory studies as stated above per my review. Medications Administered Medications (Trade) Dose Ordered Sig/Kecia Route Start Time Stop Time Status Last Admin Dose Admin Sodium Chloride 250 ml @ 999 mls/hr Q16M STAT IV 05/28/17 11:17 05/28/17 11:32 DC 05/28/17 11:17 999 MLS/HR Sodium Chloride 1,000 ml @ 100 mls/hr Q10H STAT IV 05/28/17 11:17 05/28/17 21:16 05/28/17 11:17 100 MLS/HR ECG Indication: syncope Rate (beats per minute): 48 Rhythm: sinus bradycardia Findings: no acute ischemic change, no ectopy Comparison ECG Date: prehospital ECG Change: no significant change ED Course 1113: Past medical records reviewed. The patient was evaluated in room B7, and a complete history and physical examination were performed. 1117: NSS 1000 ml @ 100 mls/hr IV, NSS 250 ml @ 999 mls/hr IV 1332: I reassessed the patient at this time. She is feeling better and resting comfortably. I discussed the results and treatment plan with the patient. I answered all pertaining questions that she had. She expressed understanding and verbalized agreement. 1335: I spoke with Dr. Costa. We discussed the patients case. The patient will be evaluated by the [facility] for further management. Medical Decision Differential diagnoses includes syncope, arrhythmia, electrolyte or metabolic abnormality, anemia, infection. This patient comes in as described above she had a syncopal episode while in [place]. Her cousin did arrive and gave further history that and said that she was unconscious for a few minutes. The patient said that she does not eat and blames it on that. She knows has no chest pain, shortness breath. She has a normal neurologic exam. She's had no recent illness or fever or chills. There are no injuries. IV access was established and she was gently hydrated. EKG shows sinus bradycardia but no acute ischemic changes or ectopy. she has no significant anemia. She has no acute electrolyte or metabolic abnormalities. Given her age as well as her syncope, I do think she needs to be observed for further treatment and evaluation. I have consulted the [facility] hospitalist group they saw her in the ER for these measures.. Medication Reconcilliation Current Medication List: was personally reviewed by me Blood Pressure Screening Patient's blood pressure: Normal blood pressure Consults Time Called: 1331 Consulting Physician: Dr. Costa Returned Call: [address] Costa. We discussed the patients case. The patient will be evaluated by the [facility] for further management. Impression Primary Impression: Syncope Additional Impression: Sinus bradycardia Scribe Attestation The scribe's documentation has been prepared under my direction and personally reviewed by me in its entirety. I confirm that the note above accurately reflects all work, treatment, procedures, and medical decision making performed by me. Departure Information Dispostion Being Evaluated By Hospitalist Referrals RV. Newby MD (PCP) Patient Instructions My [facility] Problem Qualifiers Primary Impression: Syncope Syncope type: unspecified Qualified Codes: R55 - Syncope and collapse
[2017-05-28 13:10] LABS: CKMB/CK RATIO 2.3 (0-3.0); THYROID STIMULATING HORMONE 4.44 uIu/ml (0.300-4.500)
--- NOTE | 2017-05-28 14:21 | DIAGNOSTIC IMAGING REPORT ---
HEAD CT NONCONTRAST CT DOSE: 537.48 mGy.cm HISTORY: weakness, syncope TECHNIQUE: Multiaxial CT images of the head were performed without the use of intravenous contrast. Automated exposure control was utilized for this study. A dose lowering technique was utilized adhering to the principles of ALARA. Comparison: Head CT 12/08/2016. Findings: The paranasal sinuses and mastoid air cells are clear. The calvarium and skull base are intact. There is no mass, hematoma, midline shift, acute infarct. White matter hypodensity is nonspecific but suggestive of microvascular ischemic change. The ventricles and sulci demonstrate mild age-related involutional changes. Impression: No significant change compared to the prior study. No acute intracranial abnormality. Electronically signed by: Dharmesh Reddy M.D. 05/28/2017 2:19 PM Dictated Date/Time: 05/28/2017 2:17 PM
--- NOTE | 2017-05-28 15:41 | History and Physical ---
History & Physical Date & Time of Service: May 28, 2017 at 15:24 Chief Complaint: Syncope Primary Care Physician: RV. Newby MD History of Present Illness Source: patient, family (Cousin - Mr. Sanchez) Ms. Wolff is a 77 y/o female with Anxiety/Depression, Cognitive Impairment/ Dementia, Chronic Hyponatremia, T2DM (dietary management), HLD, and HTN who presents to the ED by EMS for a syncopal episode today at [facility]. Patient reports waking up her normal self this AM. She says she has felt well and because she was in a liao she did not eat breakfast. At buddhism, she said that she began to feel flushed and lightheaded but does not think she lost consciousness. Cousin at bedside states that she slumped over and it took approximately 3-4 minutes for her to come to. He did note some mild twitching of her body. He says at buddhism they gave her apple juice and a sugar packet and slowly improved. She then developed some nausea without emesis and was treated with Zofran by EMS. He does not describe prolonged fatigue or what would suggest a postictal state. Patient had no tongue biting or loss of bowel/ bladder function. Patient reports an associated headache that is currently resolved. She reports that she thinks this is related to her nerves as she appears to be inappropriately coping with the loss of her that occurred in December 2015. During examination, anytime patient mentioned her she would start to cry. Patient also presented with forgetfulness as she said her recently passed but cannot remember when until the cousin at bedside told her. She also has a tendency to repeat questions and repeat information that she does not remember giving. Patient reports compliance with home medications but family expresses concern. She reports feelings of depression and "bad nerves". She denies illicit drug intake or ETOH. Did state "maybe I should drink and that would help" but reports not having any alcoholic drinks since her passed. She denies SI. She denies fever/chills, CP, SOB, vomiting, abdominal pain, dysuria, constipation/diarrhea, melena/hematochezia. Had a long discussion with cousin, Mr. Sanchez, and her daughter, Janae, over the phone. Her daughter is POA and is planning on flying in from [place] next Monday. Both family members and neighbors have expressed concern for safety of the patient who currently lives alone. Patient will call neighbors and Mr. Sanchez multiple times throughout the day but forget why she called. They are unsure if she is taking her home medications or if she is eating adequately. She does receive Meals on Wheels 3 times a week and is involved with [employer]. Patient had her license revoked and the battery is removed from her car. Patient is due to see neurology, Dr. Strickland, on 06/05. Patient has seen [facility], Jerson Ac, who did a formal psychiatric evaluation and Mini -Mental status exam which suggested underlying dementia/Alzheimer's. Discussion with daughter, she is concerned that patient may be having seizures. However do not suspect this is the case. Patient had a episode in March 2016 that was witnessed by the daughter who reports her eyes rolling back, shaking, being slumped over and was admitted to [facility]. Daughter is realistic that patient may have some underlying dementia but would like to rule out any organic cause such as seizures. PCP notes reviewed that suggest possibly related to depression as she has had progressive memory deficits but more rapid decline noted since 's . Daughter reports four witnessed episodes like her presentation today and are concerned for unwitnessed events as she lives alone. Daughter does feel that patient has had long-standing issues with anxiety and depression that were more obvious after the of her . Patient also expresses a desire to talk with someone and feels alone. It appears services were offered from PCP but patient normally declined or was reluctant to participate. Past Medical/Surgical History 1. Anxiety/Depression 2. Prolonged Bereavement 3. Dementia? Pseudo-Dementia? 4. Chronic Hyponatremia 5. HTN 6. T2DM (dietary management) Family History FH: diabetes mellitus FH: heart disease FH: hypertension Social History Smoking Status: Never Smoker Smokeless Tobacco Use: No Alcohol Use: none Drug Use: none Marital Status: Housing status: lives alone Occupational Status: retired Immunizations History of Influenza Vaccine: Unknown History of Tetanus Vaccine?: Unknown History of Pneumococcal: Unknown History of Hepatitis B Vaccine: Unknown Multi-Drug Resistant Organisms History of MDRO: No Allergies Coded Allergies: Diazepam (Verified Allergy, Unknown, LISTED BY MD ADVERSE RX, 05/28/17) Meperidine (Verified Allergy, Unknown, 05/28/17) Home Medications Scheduled Diltiazem Hcl Extended Release (Taztia Xt), 300 MG PO HS Lisinopril/Hctz (Zestoretic 20MG/25MG), 1 TAB PO DAILY Sertraline (Zoloft), 25 MG PO DAILY Simvastatin (Zocor), 40 MG PO QPM Review of Systems Constitutional: No fever, No chills, No sweats Eyes: No worsening of vision, No diplopia ENT: No nasal symptoms, No sore throat, No trouble swallowing Respiratory: No cough, No dyspnea on exertion, No dyspnea at rest Cardiovascular: No chest pain, No palpitations Abdomen: + nausea (resolved), No pain, No vomiting, No diarrhea, No constipation, No GI bleeding Musculoskeletal: No swelling, No calf pain Genitourinary - Female: No dysuria Neurologic: + memory loss, No balance problems Psychiatric: + depression symptoms, + anxiety, No substance abuse Hematologic / Lymphatic: No abnormal bleeding/bruising, No clotting problems Integumentary: No rash, No new/changing skin lesions Physical Exam Vital Signs Date Time Temp Pulse Resp B/P (MAP) Pulse Ox O2 Delivery O2 Flow Rate FiO2 05/28/17 15:19 36.4 48 22 151/77 96 Room Air 05/28/17 12:55 53 22 136/55 96 Room Air 05/28/17 11:02 52 05/28/17 11:01 46 117/65 49 114/48 05/28/17 10:57 36.4 51 16 132/52 100 Room Air 05/28/17 10:57 100 Room Air General Appearance: + mild distress (intermittent tearfulness when discussing of ) Head: normocephalic, atraumatic Eyes: sclerae normal ENT: hearing grossly normal Neck: supple, no JVD, trachea midline Respiratory/Chest: lungs clear, normal breath sounds, no respiratory distress Cardiovascular: regular rate, rhythm, no gallop, no murmur Abdomen/GI: normal bowel sounds, non tender, soft Extremities/Musculoskelatal: no calf tenderness, no pedal edema Neurologic/Psych: no motor/sensory deficits (equal resource teacher strength, flexion/ extension at elbow, dorsiflexion/plantarflexion, and flexion of hips b/l; facial features symmetrical at rest and with movement; gait steady), alert, oriented x 3, + pertinent finding (forgetful; intermittently tearful) Skin: normal color, warm/dry Diagnostics Laboratory Results Results Past 24 Hours Test 05/28/17 11:17 05/28/17 11:30 Range/Units Creatine Kinase MB Ratio 2.3 0-3.0 White Blood Count 13.49 4.8-10.8 K/uL Red Blood Count 4.22 4.2-5.4 M/uL Hemoglobin 13.3 12.0-16.0 g/dL Hematocrit 38.5 37-47 % Mean Corpuscular Volume 91.2 80-100 fL Mean Corpuscular Hemoglobin 31.5 25-34 pg Mean Corpuscular Hemoglobin Concent 34.5 32-36 g/dl Platelet Count 392 130-400 K/uL Mean Platelet Volume 8.8 7.4-10.4 fL Neutrophils (%) (Auto) 81.6 % Lymphocytes (%) (Auto) 12.0 % Monocytes (%) (Auto) 5.6 % Eosinophils (%) (Auto) 0.3 % Basophils (%) (Auto) 0.1 % Neutrophils # (Auto) 11.01 1.4-6.5 K/uL Lymphocytes # (Auto) 1.62 1.2-3.4 K/uL Monocytes # (Auto) 0.75 0.11-0.59 K/uL Eosinophils # (Auto) 0.04 0-0.5 K/uL Basophils # (Auto) 0.02 0-0.2 K/uL RDW Standard Deviation 39.0 36.4-46.3 fL RDW Coefficient of Variation 11.5 11.5-14.5 % Immature Granulocyte % (Auto) 0.4 % Immature Granulocyte # (Auto) 0.05 0.00-0.02 K/uL Sodium Level 129 136-145 mmol/L Potassium Level 4.1 3.5-5.1 mmol/L Chloride Level 96 98-107 mmol/L Carbon Dioxide Level 26 21-32 mmol/L Anion Gap 7.0 3-11 mmol/L Blood Urea Nitrogen 20 7-18 mg/dl Creatinine 1.10 0.60-1.20 mg/dl Est Creatinine Clear Calc Drug Dose 38.5 ml/min Estimated GFR () 56.1 Estimated GFR (Non- 48.4 BUN/Creatinine Ratio 17.9 10-20 Random Glucose 172 70-99 mg/dl Osmolality 280 280-300 mOsm/kg Calcium Level 9.6 8.5-10.1 mg/dl Total Bilirubin 0.5 0.2-1 mg/dl Direct Bilirubin 0.1 0-0.2 mg/dl Aspartate Amino Transf (AST/SGOT) 19 15-37 U/L Alanine Aminotransferase (ALT/SGPT) 23 12-78 U/L Alkaline Phosphatase 95 45-117 U/L Total Creatine Kinase 81 26-192 U/L Creatine Kinase MB 1.9 0.5-3.6 ng/ml Total Protein 6.9 6.4-8.2 gm/dl Albumin 3.8 3.4-5.0 gm/dl Lipase 152 73-393 U/L Thyroid Stimulating Hormone (TSH) 4.440 0.300-4.500 uIu/ml Diagnostic Radiology CHEST ONE VIEW PORTABLE FINDINGS: The lungs are clear. Cardiac silhouette is normal in size. No pleural effusions. No pneumothorax. IMPRESSION: No acute process HEAD CT NONCONTRAST Findings: The paranasal sinuses and mastoid air cells are clear. The calvarium and skull base are intact. There is no mass, hematoma, midline shift, acute infarct. White matter hypodensity is nonspecific but suggestive of microvascular ischemic change. The ventricles and sulci demonstrate mild age-related involutional changes. Impression: No significant change compared to the prior study. No acute intracranial abnormality. Impression Assessment and Plan Ms. Wolff is a 77 y/o female with Anxiety/Depression, Cognitive Impairment/ Dementia, Chronic Hyponatremia, T2DM (dietary management), HLD, and HTN who presents to the ED by EMS for a syncopal episode today at buddhism. Syncope: Poor Oral Intake vs Arrhythmia vs Accidental Medication Overdose - Obtain EKG, monitor on telemetry, and obtain serial cardiac enzymes -- Patient noted to be bradycardic - may be diltiazem? concern for taking too much given confusion? - Hold Diltiazem 300 mg daily and Lisinopril/HCTZ 20 mg/25 mg - Echo - did review previous with EF 55-60% without wall motion abnormality or diastolic dysfunction Anxiety/Depression: Prolonged Bereavement/Pseudo-Dementia vs Organic Cognitive Impairment - Patient has been evaluated by Dash Lamar at [facility] which findings supporting possible Dementia/Alzheimers - Has outpatient neurology appt - Dr. Strickland - daughter would like neurology to see patient - they are concern to underlying seizure disorder vs other etiology - discussed with her the effects of poor coping and cognitive function but would like complete work-up. - Previous admission patient was not able to do MRI - do not feel acutely it is necessary as no underlying focal neurodeficits appreciated - She reports that part of the problem is she is always alone and expresses desire to have people visit and talk with her - Sertraline 25 mg daily - Consult Neurology - any further imaging studies - did discuss with daughter that this is unlikely to be seizure activity but would like further evaluation - Consult psychiatry - appreciate recommendations and input - competency to make decisions for disposition HTN: - Hold anti-hypertensives as above and cover with Hydralazine at this time Chronic Hyponatremia: - Largely baseline for patient - did receive fluids in ED - Urine/Serum Osm and random urine Na - will await on further labs - allow patient to take in orally and will monitor BMP Chronic Leukocytosis: - Patient presents with a mildly elevated WBC with last few elevated - no immediate source of infection - will await U/A T2DM: - PCP notes reviewed and patient has had hesitancy and refuses new medications - plan for dietary management - Will obtain A1c - seems previous has been in 7s - will cover with liberal SSI - expect patient may refuse DVT Prophylaxis: SOFIE/SCDs; may need DVT prophylaxis pending on length of stay Disposition: - Long discussion with Mr. Sanchez (cousin) and Janae (daughter-POA) who do not feel patient is safe to return home -- Patient has a tendency to refuse medications and testing due to forgetfulness - daughter states that if it becomes an issue she can usually talk to her and calm her - [facility] is involved with patient and receives meals on wheels - Daughter is due to fly home next Monday to be present for outpatient neurology appointment and to begin placement process - daughter is legal POA - Will ask social service manager for assistance and obtain PT/OT evaluations Attending Addendum: I have physically seen and examined this patient, have directed the physician assistants medical activities, and agree with the H&P as noted above with the following exceptions: NONE The patient is awake, well-developed and adequately nourished, alert and oriented 3, normocephalic and atraumatic, appears anxious and depressed, lying in bed and in no acute distress. HEENT--PERRL, EOMI, mucous membranes and oropharynx dry. Neck--supple, no JVD or bruits, thyroid normal, trachea midline, no adenopathy. Heart--normal S1 and S2, no extra beats, no murmurs, rubs or gallops. Lungs--clear bilaterally with good air movement, no respiratory distress, no accessory muscle use. Abdomen--normal bowel sounds and soft, nontender and nondistended, no hernias or masses, no organomegaly. Extremities--no cyanosis, clubbing or edema. There are good distal pulses b/l. Dermatologic--normal skin turgor, normal color, warm and dry, no abnormal lymph nodes, no rash. Neurologic--cranial nerves II through XII grossly intact. Rheumatologic--normal range of motion. Psychiatric--anxious and depressed. Assessment and Plan: 1. Syncope/bradycardia/chronic hyponatremia--The patient will be admitted to telemetry for serial cardiac enzymes, cardiac rhythm monitoring and a 2-D echocardiogram with Dopplers. Hold diltiazem CD 300 mg by mouth daily, and lisinopril/HCTZ 20/25 mg by mouth daily. Hydralazine 10 mg IV every 4 hours when necessary systolic blood pressure greater than 160. The patient is in a situation where she is unable to adequately take care of herself and make decisions for herself. Her daughter, who is POA, is leaning toward the idea of placement, which would be a french decision from our perspective. Consult neurology Dr. Strickland, whom she has a pending appointment with. Continue sertraline 25 mg by mouth daily. Workup ordered for hyponatremia with serum and urine osmolality. Level of Care Telemetry Advanced Directives Existing Advance Directive: No Existing Living Will: No Existing Power of Lead Massage Therapist: Yes Resuscitation Status FULL RESUSCITATION VTE Prophylaxis VTE Risk Assessment Done? Y/N: Yes Risk Level: Moderate Given or contraindicated: TLatriciaEBalaji López, SCD's Social Service Consult None Apply
[2017-05-28] MEDS ORDERED: ONDANSETRON INJ 2 MG/ML 2 ML VIAL IV PRN (16:00)
[2017-05-28] MEDS ORDERED: ALUMINUM/MAGNESIUM/SIMETH (MAALOX MAX) 30 ML UDC PO PRN (16:00)
[2017-05-28] MEDS ORDERED: POLYETHYLENE (MIRALAX) 17 GM PACK PO PRN (16:00)
[2017-05-28] MEDS ORDERED: MAGNESIUM HYDROXIDE SUSP 30 ML UDC PO PRN (16:00)
[2017-05-28] MEDS ORDERED: ACETAMINOPHEN 325 MG TAB PO PRN (16:00)
[2017-05-28] MEDS ORDERED: SERT25TA PO (16:03)
[2017-05-28] MEDS ORDERED: IV FLUIDS COMPLETED PRN (16:15)
[2017-05-28 16:35] VITALS: BP 170/78; PULSE 57; TEMP 36.7; O2SAT 98
[2017-05-28] MEDS ORDERED: DEXTROSE 50% 50 ML SYR IV PRN (17:00)
[2017-05-28] MEDS ORDERED: GLUCOSE 10 TABS/TUBE PO PRN (17:00)
[2017-05-28] MEDS ORDERED: GLUCAGON FOR INJ 1 MG VIAL SQ PRN (17:00)
[2017-05-28] MEDS ORDERED: GLUCOSE 40% GEL 15 GM TUBE PO PRN (17:00)
[2017-05-28 17:30] VITALS: PULSE 60; O2SAT 95; Ht 165.1 cm; Wt 67.8 kg
[2017-05-28 18:10] LABS: URINE APPEARANCE CLEAR (CLEAR); URINE BILIRUBIN NEG (NEG); URINE COLOR YELLOW; URINE EPITHELIAL CELL AUTO >30 /lpf (0-5); URINE NITRITE NEG (NEG); URINE PH 5.5 (4.5-7.5); URINE SPECIFIC GRAVITY 1.016 (1.000-1.030); UROBILINOGEN NEG (NEG); ZZUR CULT IF INDIC CLEAN CATCH NO
[2017-05-28 18:12] LABS: MANUAL MICROSCOPIC REQUIRED? NO; REVIEW REQ? NO
[2017-05-28 19:57] VITALS: BP_SYST 149; BP_SYST 159; BP_SYST 170; BP_DIAS 68; BP_DIAS 71; PULSE 58; PULSE 61; TEMP 36.9; O2SAT 97
[2017-05-28 20:00] VITALS: O2SAT 97
[2017-05-28] MEDS: INSULIN ASPART 100 UNITS/ML 3 ML PEN SC SCH (20:52)
[2017-05-28 23:56] VITALS: BP 173/57; PULSE 61; TEMP 36.7; O2SAT 97
[2017-05-28 23:59] VITALS: O2SAT 97
[2017-05-29] VITALS (12 sets, daily range): BP systolic 132–187; BP diastolic 55–77; PULSE 57–74; TEMP 36.8–37; O2SAT 94–98
[2017-05-29 00:23] LABS: BLOOD UREA NITROGEN 17 mg/dl (7-18); BUN/CREATININE RATIO 17.7 (10-20); CALCIUM 9.5 mg/dl (8.5-10.1); CARBON DIOXIDE 31 mmol/L (21-32); CHLORIDE 96 mmol/L (98-107); CREATININE 0.96 mg/dl (0.60-1.20); GLUCOSE 120 mg/dl (70-99); POTASSIUM 3.7 mmol/L (3.5-5.1); SODIUM 132 mmol/L (136-145)
[2017-05-29 07:05] LABS: HEMATOCRIT 35.5 % (37-47); MEAN CELL VOLUME 91.5 fL (80-100); MEAN CORPUSCULAR HEMOGLOBIN 32.7 pg (25-34); MEAN CORPUSCULAR HGB CONC 35.8 g/dl (32-36); MEAN PLATELET VOLUME 8.8 fL (7.4-10.4); PLATELET COUNT 348 K/uL (130-400); RED BLOOD COUNT 3.88 M/uL (4.2-5.4); WHITE BLOOD COUNT 7.38 K/uL (4.8-10.8)
[2017-05-29] MEDS: SERTRALINE HCL 50 MG TAB PO SCH (07:25)
[2017-05-29 07:34] LABS: BUN/CREATININE RATIO 14.1 (10-20); CALCIUM 9.1 mg/dl (8.5-10.1); CREATININE 0.83 mg/dl (0.60-1.20); POTASSIUM 3.9 mmol/L (3.5-5.1)
[2017-05-29 08:12] LABS: ESTIMATED AVERAGE GLUCOSE 137 mg/dl; HA1C FLAG Normal (Normal)
--- NOTE | 2017-05-29 08:23 | Hospitalist Progress Note ---
Hospitalist Progress Note Date of Service May 29, 2017. (Rica Cadet PA-C) Subjective Pt evaluation today including: conversation w/ patient, physical exam, chart review, lab review, review of studies Pain: None PO Intake: Good Voiding: no voiding problems The patient was seen and examined this morning. Pt reports doing ok. She is unable to recall seeing neurology this morning, and is not aware that she had an EEG completed. She thinks she is in [place], but then laughs it off like a mistake when told we were in [employer]. She is unaware of the date or year. Throughout the exam she asks me 4 times about her medications, and states she hasn't gotten them yet, and that she wants me to look it up to see what the names of them are. Constitutional: No fever, No chills, No sweats, No fatigue Eyes: No worsening of vision, No diplopia Respiratory: No cough, No shortness of breath, No dyspnea on exertion Cardiovascular: No chest pain, No edema, No palpitations Abdomen: No pain, No nausea, No vomiting, No diarrhea, No constipation Musculoskeletal: No joint pain, No swelling Neurologic: + memory loss, No weakness, No numbness/tingling, No vertigo, No balance problems Psychiatric: + depression symptoms, No anxiety Endo: No fatigue Skin: No rash, No itch (Rica Cadet, ANGELICA) Objective Vital Signs Date Time Temp Pulse Resp B/P (MAP) Pulse Ox O2 Delivery O2 Flow Rate FiO2 05/29/17 07:51 36.8 57 18 149/77 (101) 98 Room Air 05/29/17 04:00 36.9 59 16 132/55 (80) 98 Room Air 05/29/17 04:00 97 Room Air 05/28/17 23:59 97 Room Air 05/28/17 23:56 36.7 61 18 173/57 (95) 97 Room Air 05/28/17 20:00 97 Room Air 05/28/17 19:57 36.9 61 20 149/68 (95) 97 Room Air 58 170/68 (102) 61 159/71 (100) 05/28/17 17:30 60 95 Room Air 05/28/17 16:35 36.7 57 18 170/78 (108) 98 Room Air 05/28/17 15:19 36.4 48 22 151/77 96 Room Air 05/28/17 12:55 53 22 136/55 96 Room Air 05/28/17 11:02 52 05/28/17 11:01 46 117/65 49 114/48 05/28/17 10:57 36.4 51 16 132/52 100 Room Air 05/28/17 10:57 100 Room Air (Rica Cadet PA-C) Physical Exam General Appearance: WD/WN, no apparent distress, + pertinent finding Eyes: PERRL, EOMI ENT: hearing grossly normal, pharynx normal Neck: supple, no JVD Respiratory/Chest: lungs clear, no respiratory distress, no accessory muscle use Cardiovascular: regular rate, rhythm, no murmur, + systolic murmur ( holosystolic, grade III/IV) Abdomen: normal bowel sounds, non tender, soft Extremities: non-tender, no pedal edema, no calf tenderness Neurologic/Psychiatric: no motor/sensory deficits, alert, + disoriented, + pertinent finding (poor short term memory) Skin: normal color, warm/dry (Rica Cadet, BRIEN-C) Laboratory Results Last 24 Hours Test 05/28/17 11:17 05/28/17 11:30 05/28/17 17:25 05/28/17 20:30 Creatine Kinase MB Ratio 2.3 White Blood Count 13.49 K/uL Red Blood Count 4.22 M/uL Hemoglobin 13.3 g/dL Hematocrit 38.5 % Mean Corpuscular Volume 91.2 fL Mean Corpuscular Hemoglobin 31.5 pg Mean Corpuscular Hemoglobin Concent 34.5 g/dl Platelet Count 392 K/uL Mean Platelet Volume 8.8 fL Neutrophils (%) (Auto) 81.6 % Lymphocytes (%) (Auto) 12.0 % Monocytes (%) (Auto) 5.6 % Eosinophils (%) (Auto) 0.3 % Basophils (%) (Auto) 0.1 % Neutrophils # (Auto) 11.01 K/uL Lymphocytes # (Auto) 1.62 K/uL Monocytes # (Auto) 0.75 K/uL Eosinophils # (Auto) 0.04 K/uL Basophils # (Auto) 0.02 K/uL RDW Standard Deviation 39.0 fL RDW Coefficient of Variation 11.5 % Immature Granulocyte % (Auto) 0.4 % Immature Granulocyte # (Auto) 0.05 K/uL Sodium Level 129 mmol/L Potassium Level 4.1 mmol/L Chloride Level 96 mmol/L Carbon Dioxide Level 26 mmol/L Anion Gap 7.0 mmol/L Blood Urea Nitrogen 20 mg/dl Creatinine 1.10 mg/dl Est Creatinine Clear Calc Drug Dose 38.5 ml/min Estimated GFR () 56.1 Estimated GFR (Non- 48.4 BUN/Creatinine Ratio 17.9 Random Glucose 172 mg/dl Osmolality 280 mOsm/kg Calcium Level 9.6 mg/dl Total Bilirubin 0.5 mg/dl Direct Bilirubin 0.1 mg/dl Aspartate Amino Transf (AST/SGOT) 19 U/L Alanine Aminotransferase (ALT/SGPT) 23 U/L Alkaline Phosphatase 95 U/L Total Creatine Kinase 81 U/L Creatine Kinase MB 1.9 ng/ml Total Protein 6.9 gm/dl Albumin 3.8 gm/dl Lipase 152 U/L Thyroid Stimulating Hormone (TSH) 4.440 uIu/ml Troponin I < 0.015 ng/ml Bedside Glucose 178 mg/dl Test 05/28/17 23:33 05/29/17 06:33 05/29/17 06:56 Sodium Level 132 mmol/L 130 mmol/L Potassium Level 3.7 mmol/L 3.9 mmol/L Chloride Level 96 mmol/L 96 mmol/L Carbon Dioxide Level 31 mmol/L 29 mmol/L Anion Gap 5.0 mmol/L 5.0 mmol/L Blood Urea Nitrogen 17 mg/dl 12 mg/dl Creatinine 0.96 mg/dl 0.83 mg/dl Est Creatinine Clear Calc Drug Dose 44.2 ml/min 51.1 ml/min Estimated GFR () 66.1 78.8 Estimated GFR (Non- 57.0 68.0 BUN/Creatinine Ratio 17.7 14.1 Random Glucose 120 mg/dl 124 mg/dl Calcium Level 9.5 mg/dl 9.1 mg/dl Troponin I < 0.015 ng/ml White Blood Count 7.38 K/uL Red Blood Count 3.88 M/uL Hemoglobin 12.7 g/dL Hematocrit 35.5 % Mean Corpuscular Volume 91.5 fL Mean Corpuscular Hemoglobin 32.7 pg Mean Corpuscular Hemoglobin Concent 35.8 g/dl RDW Standard Deviation 38.3 fL RDW Coefficient of Variation 11.5 % Platelet Count 348 K/uL Mean Platelet Volume 8.8 fL Estimated Average Glucose 137 mg/dl Hemoglobin A1c 6.4 % Magnesium Level 2.0 mg/dl Vitamin B12 Level 646 pg/mL Bedside Glucose 139 mg/dl (Rica Cadet, ANGELICA) Assessment and Plan 77 y/o female with Anxiety/Depression, Cognitive Impairment/Dementia, Chronic Hyponatremia, T2DM (dietary management), HLD, and HTN who presents after syncopal episode. Syncope: Poor Oral Intake vs Arrhythmia vs Accidental Medication Overdose - serial cardiac enzymes neg - bradycardic on admit - may be diltiazem? concern for taking too much given confusion? - Hold Diltiazem 300 mg daily and Lisinopril/HCTZ 20 mg/25 mg - Echo 05/28 -- Conclusions -- * Left ventricular systolic function is normal. * No regional wall motion abnormalities noted. * Ejection Fraction = 60-65%. * There is mild mitral regurgitation. * There is mild tricuspid regurgitation. Anxiety/Depression: Prolonged Bereavement/Pseudo-Dementia vs Organic Cognitive Impairment - Patient has been evaluated by Dash Lamar at [facility] which findings supporting possible Dementia/Alzheimers - outpatient neurology appt - Dr. Strickland on 06/05 already scheduled - MRI ordered per neurology - may require ativan prior to this due to anxiety, use ativan with caution with above allergy to diazepam. - Sertraline 25 mg daily - Appreciate Neurology recs: checking MRI, Vit B12 level = 646, checking thiamine, asa 81 mg daily, and EEG reviewed which showed small vessel ischemic disease - Consult psychiatry - appreciate recs HTN: - Hold anti-hypertensives as above and cover with Hydralazine at this time Chronic Hyponatremia: - Largely baseline for patient - did receive fluids in ED - Urine/Serum Osm and random urine Na - will await on further labs - allow patient to take in orally and will monitor BMP Chronic Leukocytosis: - Patient presents with a mildly elevated WBC with last few elevated - no immediate source of infection - will await U/A T2DM: - PCP notes reviewed and patient has had hesitancy and refuses new medications - plan for dietary management - Will obtain A1c = 6.4 - ISS with accuchecks achs DVT Prophylaxis: SOFIE/SCDs; may need DVT prophylaxis pending on length of stay Disposition: From home alone, PT/OT Shiva page to assist with d/c planning with increasing dementia and question if she's safe to go home by herself. (Rica Cadet, PA-C) I agree with PA assessment and plan and have seen and examined pt myself Labs reviewed VSS Imaging reviewed Neuro consulted Likely worsening cognitive decline vs iatrogenic effect Pt also reports not having breakfast Pt able to make decisions for herself but likely DC home is unsafe (Ishaan Lopez, D.O.)
[2017-05-29] MEDS: INSULIN ASPART 100 UNITS/ML 3 ML PEN SC SCH ×4 (08:25→21:00)
--- NOTE | 2017-05-29 09:11 | Medical Student: [facility] ---
Med Student History & Physical Date & Time of Service: May 29, 2017 at 08:03 Chief Complaint: Near Syncope Primary Care Physician: RV. Newby MD History of Present Illness Source: patient, hospital records 77 year old female presents to the ED with a chief complaint of a near syncopal episode this morning in confucianism. She states that she was in confucianism when all of a sudden she started to feel warm and dizzy. She says she did not loose consciousness completely, although she was close. Of note, in the ED encounter her cousin accompanied her and stated that she did loose consciousness and took about 3-4 minutes to return. He stated that there was also some muscle twitching. Patient states that earlier in the day she did not eat breakfast and thinks that this may have been a cause. After the episode, she was given snacks and juice and the started to feel much better. She also feel that this may be attributed to her nerves. She states that she "gets really bad nerves". This episode has happened 3-4 times in the past. Patient did seem a bit overwhelmed and anxious especially when talking about her and having to go back to her home where she is alone. She states that she feels lonely and only her daughter who lives in [place] helps her out. Her other 2 kids don't talk to her and this seems to add to her distress. According to her daughter, who talked to the ER physician, the patient has been having worsening dementia over the past year. She seems to be loosing her memory although the patient does not seem to be aware of this. When asked questions about her daughter, the year, or the month, she was not always able to give accurate answers. 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 The patient has an upcoming appointment scheduled with Dr. Strickland in neurology. She denies any fevers, chills, numbness, tingling, weakness, or trouble speaking. She also denies any urinary incontinence or tongue biting during the syncopal episode. She did have some nausea on her way to the ED. Her past medical history is significant for anxiety & depression, diet controlled diabetes, hypertension, and hyperlipidemia. Past Medical/Surgical History Medical Problems: (1) Chronic hyponatremia Status: Chronic (2) Dementia Status: Chronic (3) Syncope Status: Acute (4) Anxiety Status: Chronic (5) Depression Status: Chronic (6) Hypertension Status: Chronic (7) Diabetes Mellitus Type 2 Status: Chronic (8) Hyperlipidemia Status: Chronic Family History Patient states that she does not know very much about her family history as she was adopted. Social History Patient has 3 kids, although she is only in touch with her daughter who lives in [place]. Her in December 2015 and since then she has been living alone. 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 Smoking Status: Never Smoker Smokeless Tobacco Use: No Alcohol Use: none Drug Use: none Marital Status: Housing status: lives alone Occupational Status: retired Allergies Coded Allergies: Diazepam (Verified Allergy, Unknown, LISTED BY MD ADVERSE RX, 05/28/17) Meperidine (Verified Allergy, Unknown, 05/28/17) Medications Diltiazem Hcl Extended Release (Taztia Xt), 300 MG PO HS Lisinopril/Hctz (Zestoretic 20MG/25MG), 1 TAB PO DAILY Sertraline (Zoloft), 25 MG PO DAILY Simvastatin (Zocor), 40 MG PO QPM Review of Systems Constitutional: No fever, No chills Respiratory: No cough, No shortness of breath, No dyspnea on exertion Cardiovascular: No chest pain Abdomen: + nausea, No pain Neurologic: + memory loss, No weakness, No numbness/tingling, No vertigo Psychiatric: + depression symptoms, + anxiety Physical Exam Vital Signs (24 Hours) Date Time Temp Pulse Resp B/P (MAP) Pulse Ox O2 Delivery O2 Flow Rate FiO2 05/29/17 07:51 36.8 57 18 149/77 (101) 98 Room Air 05/29/17 04:00 36.9 59 16 132/55 (80) 98 Room Air 05/29/17 04:00 97 Room Air 05/28/17 23:59 97 Room Air 05/28/17 23:56 36.7 61 18 173/57 (95) 97 Room Air 05/28/17 20:00 97 Room Air 05/28/17 19:57 36.9 61 20 149/68 (95) 97 Room Air 58 170/68 (102) 61 159/71 (100) 05/28/17 17:30 60 95 Room Air 05/28/17 16:35 36.7 57 18 170/78 (108) 98 Room Air 05/28/17 15:19 36.4 48 22 151/77 96 Room Air 05/28/17 12:55 53 22 136/55 96 Room Air 05/28/17 11:02 52 05/28/17 11:01 46 117/65 49 114/48 05/28/17 10:57 36.4 51 16 132/52 100 Room Air 05/28/17 10:57 100 Room Air General Appearance: WD/WN, + mild distress (Patient seems overwhelmed and anxious) Head: normocephalic, atraumatic Eyes: PERRL Respiratory/Chest: lungs clear Cardiovascular: regular rate, rhythm Neurologic/Psych: pharmacy resident II-XII nml as tested, alert, normal reflexes, + depressed affect, + disoriented Neurological Exam: Mental status: Patient is alert but disoriented. She was unable to correctly name what hospital she was at, the year or the month. She seemed to alternate between saying her daughter is already here v. her daughter is visiting next weekend. Cranial Nerves: CN I: not tested CN II: PERRL, funduscopic exam showed normal optic disc. CN III, IV, : Extraocular movements are intact. CN V: Sensation is symmetrical in the frontal, maxillary, and mandibular area. CN VII: facial movements are symmetrical CN VIII: no nystagmus, hearing intact and equal on both sides CN IX, X: palate raises symmetrically CN XI: can shrug shoulders and turn head against resistance CN XII: tongue protrudes at the midline and can push against resistance on both sides. Sensation: Equal sensation on both sides of the face, arms, hands, and legs. Responds to touch. Vibration intact in both upper and lower extremities. Motor: 5/5 right upper extremity including deltoids, biceps, brachioradialis, flexor digitalis and extensor digitalis 5/5 left upper extremity including deltoids, biceps, brachioradialis, flexor digitalis and extensor digitalis 5/5 right lower extremities including quadriceps, hamstrings, flexor digitorum longus, and extensor digitorum longus 5/5 left lower extremities including quadriceps, hamstrings, flexor digitorum longus, and extensor digitorum longus Reflexes: Brachioradialis: 2+ bilaterally Biceps: 2+ bilaterally Triceps: 2+ bilaterally Patellar: 2+ bilaterally Achilles: 2+ bilaterally Babinski: downward toes bilaterally Cerebellar: finger to nose testing was normal. Gait: not tested, patient was unwilling to get up. According to nurse, she is able to walk to the bathroom. Patient is right handed Diagnostics Laboratory Results Results Past 24 Hours Test 05/28/17 11:17 05/28/17 11:30 05/28/17 17:25 05/28/17 20:30 Range/Units Creatine Kinase MB Ratio 2.3 0-3.0 White Blood Count 13.49 4.8-10.8 K/uL Red Blood Count 4.22 4.2-5.4 M/uL Hemoglobin 13.3 12.0-16.0 g/dL Hematocrit 38.5 37-47 % Mean Corpuscular Volume 91.2 80-100 fL Mean Corpuscular Hemoglobin 31.5 25-34 pg Mean Corpuscular Hemoglobin Concent 34.5 32-36 g/dl Platelet Count 392 130-400 K/uL Mean Platelet Volume 8.8 7.4-10.4 fL Neutrophils (%) (Auto) 81.6 % Lymphocytes (%) (Auto) 12.0 % Monocytes (%) (Auto) 5.6 % Eosinophils (%) (Auto) 0.3 % Basophils (%) (Auto) 0.1 % Neutrophils # (Auto) 11.01 1.4-6.5 K/uL Lymphocytes # (Auto) 1.62 1.2-3.4 K/uL Monocytes # (Auto) 0.75 0.11-0.59 K/uL Eosinophils # (Auto) 0.04 0-0.5 K/uL Basophils # (Auto) 0.02 0-0.2 K/uL RDW Standard Deviation 39.0 36.4-46.3 fL RDW Coefficient of Variation 11.5 11.5-14.5 % Immature Granulocyte % (Auto) 0.4 % Immature Granulocyte # (Auto) 0.05 0.00-0.02 K/uL Sodium Level 129 136-145 mmol/L Potassium Level 4.1 3.5-5.1 mmol/L Chloride Level 96 98-107 mmol/L Carbon Dioxide Level 26 21-32 mmol/L Anion Gap 7.0 3-11 mmol/L Blood Urea Nitrogen 20 7-18 mg/dl Creatinine 1.10 0.60-1.20 mg/dl Est Creatinine Clear Calc Drug Dose 38.5 ml/min Estimated GFR () 56.1 Estimated GFR (Non- 48.4 BUN/Creatinine Ratio 17.9 10-20 Random Glucose 172 70-99 mg/dl Osmolality 280 280-300 mOsm/kg Calcium Level 9.6 8.5-10.1 mg/dl Total Bilirubin 0.5 0.2-1 mg/dl Direct Bilirubin 0.1 0-0.2 mg/dl Aspartate Amino Transf (AST/SGOT) 19 15-37 U/L Alanine Aminotransferase (ALT/SGPT) 23 12-78 U/L Alkaline Phosphatase 95 45-117 U/L Total Creatine Kinase 81 26-192 U/L Creatine Kinase MB 1.9 0.5-3.6 ng/ml Total Protein 6.9 6.4-8.2 gm/dl Albumin 3.8 3.4-5.0 gm/dl Lipase 152 73-393 U/L Thyroid Stimulating Hormone (TSH) 4.440 0.300-4.500 uIu/ml Troponin I < 0.015 0-0.045 ng/ml Bedside Glucose 178 70-90 mg/dl Test 05/28/17 23:33 05/29/17 06:33 05/29/17 06:56 Range/Units Sodium Level 132 130 136-145 mmol/L Potassium Level 3.7 3.9 3.5-5.1 mmol/L Chloride Level 96 96 98-107 mmol/L Carbon Dioxide Level 31 29 21-32 mmol/L Anion Gap 5.0 5.0 3-11 mmol/L Blood Urea Nitrogen 17 12 7-18 mg/dl Creatinine 0.96 0.83 0.60-1.20 mg/dl Est Creatinine Clear Calc Drug Dose 44.2 51.1 ml/min Estimated GFR () 66.1 78.8 Estimated GFR (Non- 57.0 68.0 BUN/Creatinine Ratio 17.7 14.1 10-20 Random Glucose 120 124 70-99 mg/dl Calcium Level 9.5 9.1 8.5-10.1 mg/dl Troponin I < 0.015 0-0.045 ng/ml White Blood Count 7.38 4.8-10.8 K/uL Red Blood Count 3.88 4.2-5.4 M/uL Hemoglobin 12.7 12.0-16.0 g/dL Hematocrit 35.5 37-47 % Mean Corpuscular Volume 91.5 80-100 fL Mean Corpuscular Hemoglobin 32.7 25-34 pg Mean Corpuscular Hemoglobin Concent 35.8 32-36 g/dl RDW Standard Deviation 38.3 36.4-46.3 fL RDW Coefficient of Variation 11.5 11.5-14.5 % Platelet Count 348 130-400 K/uL Mean Platelet Volume 8.8 7.4-10.4 fL Magnesium Level 2.0 1.8-2.4 mg/dl Vitamin B12 Level 646 211-911 pg/mL Bedside Glucose 139 70-90 mg/dl Diagnostic Radiology CXR was unremarkable CT of the Head was unremarkable CXR normal Impression Assessment and Plan Assessment: Acute Syncopal Episode 77 year old female presents with an acute syncopal episode yesterday morning. She did not have any urinary incontinence or tongue biting during the episode nor was there any report of increased stiffness or generalized shaking. She also does not recall any drowsiness or confusion when coming back to consciousness. Based on these signs, seizure seems unlikely. Considering that this was her 4th episode, further work up should be done for other etiologies including: -Cardiac: patient came in with bradycardia, hyper/hypotension, vasovagal -Metabolic: low blood sugar (patient states she did not eat that morning), dehydration -Drugs: lisinopril, diltiazem -psychiatric: anxiety Dementia Neuropsychiatric outpatient testing results showed a mix of AD and vascular dementia with a possibility of some pseudodementia secondary to depression. Depression and Anxiety Patient gets overwhelmed and has sort of a flat affect. She gives up really easily when trying to answer questions or during the motor exam. She states that she doesn't want to go home because she is all alone there. She starts to cry when talking about her or her kids who are estranged. Plan: 1. MRI to rule out stroke or any structural abnormalities that can cause seizures. Patient states that she gets anxiety with the MRI machine so consider giving sedative/antianxiety medication. 2. EEG to evaluate for seizure activity. 3. Consider holding diltiazem and/or lisinopril 4. B12 levels as a potential cause for cognitive decline 5. Monitor blood pressure and blood glucose 6. Follow up with outpatient neurology (Dr. Strickland) for evaluation of cognitive decline Neurology attending addendum: Patient was seen and evaluated with medical student. Please see my separate neurology consult note for full evaluation and recommendations. -Divine Grace, DO Advanced Directives Existing Living Will: No Existing Power of Head Wood Grinder: No
--- NOTE | 2017-05-29 09:22 | Neurology Consultation ---
Neurology Consultation Date of Consultation: May 29, 2017. Attending Physician: sIhaan Lopez D.O. Primary Care Physician: RV. Newby MD Reason for Consultation: Syncope versus seizure History of Present Illness Source: patient, clinic records, hospital records This is a 77-year-old female who presents for evaluation of syncope versus seizure. Patient reports that she is adamant that she did not pass out yesterday. She reports that she was at [employer] and got lightheaded and felt like she was going to pass out. Reports of a family member that was with her at [employer] felt like she did pass out for 3-4 minutes with maybe some mild twitching. Overall the patient has had a total of 4 syncopal episodes in the last year or so. Descriptions per the chart have included flushed, lightheaded, eyes rolled back, twitching or shaking, and slumping over. Does not appear that there is ever been a clear description of seizure-like activity. The patient denies any urinary incontinence or tongue biting. Patient on admission was noted to have some mild bradycardia in the 50s. Patient denies any new numbness or weakness. Denies any changes in her vision. Denies any trouble eating or swallowing. Also denies any trouble with cognition although she is being evaluated for this. There has been concerns with cognitive decline. As an outpatient the patient did get neuropsych testing in February which showed signs of mixed Alzheimer's and vascular type dementia. There may have been a component of depression and anxiety causing some worsening of her symptoms. Patient is scheduled to see Dr. Strickland next June 05 in clinic for cognitive evaluation. TSH in February was unremarkable CT of the brain report and images were reviewed by myself and was unremarkable but did show signs of small vessel ischemic disease. Patient reports that she is not able to tolerate MRI due to anxiety, but is not clear that Ativan is never been tried before. There is a medication or adverse events reported to diazepam in the hospital chart, but no benzodiazepine allergies reported in her outpatient chart. Patient does not know what the adverse reaction was. Past Medical/Surgical History Medical Problems: (1) Chronic hyponatremia Status: Acute (2) Dementia Status: Acute (3) Hyponatremia Status: Acute (4) Left ankle sprain Status: Acute (5) Sinus bradycardia Status: Acute (6) Syncope Status: Acute (7) Syncope Status: Acute Anxiety/depression, mixed Alzheimer's vascular type dementia, hyponatremia, diet controlled diabetes type 2, dyslipidemia, hypertension Family History Diabetes, hypertension, CAD Social History Patient currently lives alone. She has recently had her license revoked due to signs of significant dementia. There has been reports in concern by family and friends that she's not able to adequately take care of herself alone anymore and it's unclear whether she is taking her medications properly or eating regularly. Smokeless Tobacco Use: No Alcohol Use: none Drug Use: none Marital Status: Occupation Status: retired Allergies Coded Allergies: Diazepam (Verified Allergy, Unknown, LISTED BY MD ADVERSE RX, 05/28/17) Meperidine (Verified Allergy, Unknown, 05/28/17) Current Inpatient Medications Current Inpatient Medications Medications (Trade) Dose Ordered Sig/Kecia Route Start Time Stop Time Status Last Admin Dose Admin Acetaminophen (Tylenol Tab) 650 mg Q4H PRN PO 05/28/17 16:00 06/27/17 15:59 Al Hydrox/Mg Hydrox/Simethicone (Maalox Max Susp) 15 ml Q4H PRN PO 05/28/17 16:00 06/27/17 15:59 Magnesium Hydroxide (Milk Of Magnesia Susp) 30 ml Q12H PRN PO 05/28/17 16:00 06/27/17 15:59 Ondansetron HCl (Zofran Inj) 4 mg Q6H PRN IV 05/28/17 16:00 06/27/17 15:59 Polyethylene (Miralax Powder Packet) 17 gm DAILY PRN PO 05/28/17 16:00 06/27/17 15:59 Sertraline HCl (Zoloft Tab) 25 mg QAM PO 05/29/17 09:00 06/28/17 08:59 05/29/17 07:25 25 MG Miscellaneous (Iv Fluids Completed) 1 ea PRN PRN N/A 05/28/17 16:15 05/28/18 16:14 Insulin Aspart (novoLOG ASPART) SLIDING SCALE If C... ACHS SC 05/28/17 21:00 06/27/17 20:59 Glucose (Glucose 40% Gel) 15-30 GRAMS 15 GRAMS... UD PRN PO 05/28/17 17:00 06/27/17 16:59 Glucose (Glucose Chew Tab) 4-8 Tablets 4 Tabl... UD PRN PO 05/28/17 17:00 06/27/17 16:59 Dextrose (Dextrose 50% 50ML Syringe) 25-50ML OF 50% DW IV FOR... UD PRN IV 05/28/17 17:00 06/27/17 16:59 Glucagon (Glucagon Inj) 1 mg UD PRN SQ 05/28/17 17:00 06/27/17 16:59 Review of Systems Complete review of systems otherwise negative except for the above noted in history of present illness Physical Exam Vital Signs (Past 24 Hrs): Date Time Temp Pulse Resp B/P (MAP) Pulse Ox O2 Delivery O2 Flow Rate FiO2 05/29/17 07:51 36.8 57 18 149/77 (101) 98 Room Air 05/29/17 04:00 36.9 59 16 132/55 (80) 98 Room Air 05/29/17 04:00 97 Room Air 05/28/17 23:59 97 Room Air 05/28/17 23:56 36.7 61 18 173/57 (95) 97 Room Air 05/28/17 20:00 97 Room Air 05/28/17 19:57 36.9 61 20 149/68 (95) 97 Room Air 58 170/68 (102) 61 159/71 (100) 05/28/17 17:30 60 95 Room Air 05/28/17 16:35 36.7 57 18 170/78 (108) 98 Room Air 05/28/17 15:19 36.4 48 22 151/77 96 Room Air 05/28/17 12:55 53 22 136/55 96 Room Air 05/28/17 11:02 52 05/28/17 11:01 46 117/65 49 114/48 05/28/17 10:57 36.4 51 16 132/52 100 Room Air 05/28/17 10:57 100 Room Air Gen.: Patient is alert and sitting in bed, in no acute distress. HEENT: Normocephalic /atraumatic, no scleral icterus Heart: Regular rate and rhythm Extremities: No gross deformities or rashes noted Neurological examination: Mental status: Patient is alert and oriented to person and place. Not fully oriented to time. Attention and concentration normal for the situation. Poor historian. Able to give her own history. Speech is fluent without any dysarthria or aphasia noted Cranial nerve: Pupils equally round and reactive to light. Extraocular muscles intact without nystagmus. No facial asymmetry noted. Facial sensation intact. Tongue is midline. Good palatal elevation. Good shoulder shrug bilaterally. Hearing grossly intact to voice. Strength: 5/5 both proximal and distally in all extremities with the exception of give way weakness secondary to some muscular pain on the right proximal leg. There is no arm drift. Tone is normal. Sensation: Grossly intact to light touch in all extremities. Deep tendon reflexes: +1 in bilateral biceps, brachioradialis and patellar. Toes were equivocal to plantar stimulation Coordination: Patient had good finger to nose without dysmetria Station within the bed was normal Laboratory Results Past 24 Hours: 05/29/17 06:33 05/29/17 06:33 Test 05/28/17 11:30 05/28/17 23:33 05/29/17 06:33 05/29/17 06:56 Immature Granulocyte % (Auto) 0.4 % White Blood Count 13.49 K/uL (4.8-10.8) Red Blood Count 4.22 M/uL (4.2-5.4) 3.88 M/uL (4.2-5.4) Hemoglobin 13.3 g/dL (12.0-16.0) Hematocrit 38.5 % (37-47) Mean Corpuscular Volume 91.2 fL (80-100) 91.5 fL (80-100) Mean Corpuscular Hemoglobin 31.5 pg (25-34) 32.7 pg (25-34) Mean Corpuscular Hemoglobin Concent 34.5 g/dl (32-36) 35.8 g/dl (32-36) Platelet Count 392 K/uL (130-400) Mean Platelet Volume 8.8 fL (7.4-10.4) 8.8 fL (7.4-10.4) Neutrophils (%) (Auto) 81.6 % Lymphocytes (%) (Auto) 12.0 % Monocytes (%) (Auto) 5.6 % Eosinophils (%) (Auto) 0.3 % Basophils (%) (Auto) 0.1 % Neutrophils # (Auto) 11.01 K/uL (1.4-6.5) Lymphocytes # (Auto) 1.62 K/uL (1.2-3.4) Monocytes # (Auto) 0.75 K/uL (0.11-0.59) Eosinophils # (Auto) 0.04 K/uL (0-0.5) Basophils # (Auto) 0.02 K/uL (0-0.2) Immature Granulocyte # (Auto) 0.05 K/uL (0.00-0.02) Osmolality 280 mOsm/kg (280-300) Total Bilirubin 0.5 mg/dl (0.2-1) Direct Bilirubin 0.1 mg/dl (0-0.2) Aspartate Amino Transf (AST/SGOT) 19 U/L (15-37) Alanine Aminotransferase (ALT/SGPT) 23 U/L (12-78) Alkaline Phosphatase 95 U/L (45-117) Total Creatine Kinase 81 U/L (26-192) Creatine Kinase MB 1.9 ng/ml (0.5-3.6) Creatine Kinase MB Ratio 2.3 (0-3.0) Total Protein 6.9 gm/dl (6.4-8.2) Albumin 3.8 gm/dl (3.4-5.0) Lipase 152 U/L (73-393) Thyroid Stimulating Hormone (TSH) 4.440 uIu/ml (0.300-4.500) Troponin I < 0.015 ng/ml (0-0.045) RDW Standard Deviation 38.3 fL (36.4-46.3) RDW Coefficient of Variation 11.5 % (11.5-14.5) Anion Gap 5.0 mmol/L (3-11) Est Creatinine Clear Calc Drug Dose 51.1 ml/min Estimated GFR () 78.8 Estimated GFR (Non- 68.0 BUN/Creatinine Ratio 14.1 (10-20) Estimated Average Glucose 137 mg/dl Hemoglobin A1c 6.4 % (4.5-5.6) Calcium Level 9.1 mg/dl (8.5-10.1) Magnesium Level 2.0 mg/dl (1.8-2.4) Vitamin B12 Level 646 pg/mL (211-911) Bedside Glucose 139 mg/dl (70-90) Imaging As noted above in history of present illness Impression This is a 77-year-old female with 4 syncopal/presyncopal episodes in the last year. At this time nothing highly concerning for seizures at this time. More common causes of syncopal episodes include cardiogenic, vasovagal, hypertension , and dehydration. 2) mixed vascular and Alzheimer's type dementia per outpatient neuropsych testing. Plan Recommend MRI of the brain to rule out secondary causes of seizure and cognitive decline. Patient may need Ativan for MRI, but investigation into benzodiazepine reaction will be needed to make sure not a true allergy. I would expect with the patient' s underlying dementia that there is a risk of acute delirium with benzodiazepine use. EEG performed this morning based on my recommendation was a normal awake EEG. There was no signs of epileptiform discharges or seizures. I have ordered B12 level and thiamine level this morning to rule out secondary causes for cognitive decline. Recommend B12 levels above 400. Recommend aspirin 81 mg daily due to signs of cerebral small vessel ischemic disease on CAT scan. As an outpatient would consider a Holter monitor and tilt table for further evaluation of syncope. Avoid bradycardia, hypotension and dehydration May follow up with Dr. Strickland next week for cognitive evaluation (daughter has already planned to fly in from [place] to make this appointment). Vascular risk factor modifications per primary care Neurology recommendations for vascular risk factor modification: Blood pressure recommendations 130/80-110/70 Total cholesterol goal 100- 200 and LDL goal less than 70 Hemoglobin A1c goal less than 7 Encourage cardiovascular exercise at least 3 times a week for 30 minutes. Thank you for allowing me to participate in this patient's care. If there is any questions or concerns, feel free to call/page me.
--- NOTE | 2017-05-29 09:25 | EEG Procedure Note ---
EEG Procedure Note Date of Service May 29, 2017. Start / End Times Start Time: 8:26 AM End Time: 8:46 AM Referring Physician Divine Grace History This is a 77-year-old female who presents with syncopal episode. EEG to evaluate for possible seizure etiology. Home Medication List Scheduled Diltiazem Hcl Extended Release (Taztia Xt), 300 MG PO HS Lisinopril/Hctz (Zestoretic 20MG/25MG), 1 TAB PO DAILY Sertraline (Zoloft), 25 MG PO DAILY Simvastatin (Zocor), 40 MG PO QPM Inpatient Medication List Current Inpatient Medications Medications (Trade) Dose Ordered Sig/Kecia Route Start Time Stop Time Status Last Admin Dose Admin Acetaminophen (Tylenol Tab) 650 mg Q4H PRN PO 05/28/17 16:00 06/27/17 15:59 Al Hydrox/Mg Hydrox/Simethicone (Maalox Max Susp) 15 ml Q4H PRN PO 05/28/17 16:00 06/27/17 15:59 Magnesium Hydroxide (Milk Of Magnesia Susp) 30 ml Q12H PRN PO 05/28/17 16:00 06/27/17 15:59 Ondansetron HCl (Zofran Inj) 4 mg Q6H PRN IV 05/28/17 16:00 06/27/17 15:59 Polyethylene (Miralax Powder Packet) 17 gm DAILY PRN PO 05/28/17 16:00 06/27/17 15:59 Sertraline HCl (Zoloft Tab) 25 mg QAM PO 05/29/17 09:00 06/28/17 08:59 05/29/17 07:25 25 MG Miscellaneous (Iv Fluids Completed) 1 ea PRN PRN N/A 05/28/17 16:15 05/28/18 16:14 Insulin Aspart (novoLOG ASPART) SLIDING SCALE If C... ACHS SC 05/28/17 21:00 06/27/17 20:59 Glucose (Glucose 40% Gel) 15-30 GRAMS 15 GRAMS... UD PRN PO 05/28/17 17:00 06/27/17 16:59 Glucose (Glucose Chew Tab) 4-8 Tablets 4 Tabl... UD PRN PO 8/6/17 17:00 06/27/17 16:59 Dextrose (Dextrose 50% 50ML Syringe) 25-50ML OF 50% DW IV FOR... UD PRN IV 05/28/17 17:00 06/27/17 16:59 Glucagon (Glucagon Inj) 1 mg UD PRN SQ 05/28/17 17:00 06/27/17 16:59 Description This is a 21 electrode EEG with a single channel dedicated to limited EKG. The electrodes were placed in accordance with the International 10-20 system. Noted mild to moderate diffuse muscle tension artifact. At the start of this recording the patient was in an awake state. Background was symmetric and well organized with a mixed of alpha and beta frequencies. There was a symmetric moderate amplitude well formed posterior dominant rhythm of 9-10 Hz that was reactive to eye opening and closure. Hyperventilation was not done. Photic stimulation at various frequencies did not produce any abnormalities. There was no state changes or sleep transients. Interpretation This is a normal awake only routine EEG There was no electrographic seizures or epileptiform discharges. Clinical Correlation A normal EEG does not rule out epilepsy if there is a strong clinical suspicion
--- NOTE | 2017-05-29 09:31 | ECHOCARDIOGRAM REPORT ---
*NOTICE TO RECEIVING DEMOCRAT AGENCY This information is strictly Confidential and protected under [place] law. [place] law prohibits you from making any further disclosure of this information unless further disclosure is expressly permitted by the written consent of the person to whom it pertains or is authorized by law. A general authorization for the release of medical or other information is not sufficient for this purpose. Hospital accepts no responsibility if the information is made available to any other person, INCLUDING THE PATIENT. Interpretation Summary * Name: AMERICO TOM Study Date: 05/29/2017 06:53 AM BP: 132/55 mmHg * Patient Location: C.2T\S\S240\S\1 HR: 50 * : 1940 (M/d/yyy) Gender: Female Height: 65 in * Age: 77 yrs Ethnicity: CA Weight: 150 lb * Ordering Physician: Katiana Harkins * Performed By: Marti Smith * * Reason For Study: SYNCOPE * BSA: 1.8 m2 * -- Conclusions -- * Left ventricular systolic function is normal. * No regional wall motion abnormalities noted. * Ejection Fraction = 60-65%. * There is mild mitral regurgitation. * There is mild tricuspid regurgitation. Procedure Details * A complete two-dimensional transthoracic echocardiogram was performed (2D, M-mode, Doppler and color flow Doppler). Left Ventricle * The left ventricle is normal in size. * There is normal left ventricular wall thickness. * Ejection Fraction = 60-65%. * Left ventricular systolic function is normal. * No regional wall motion abnormalities noted. Right Ventricle * The right ventricle is not well visualized. * The right ventricular systolic function is normal as assessed by tricuspid annular plane systolic excursion (TAPSE) (normal >1.5 cm). Atria * The left atrial size is normal. * Right atrial size is normal. * There is no evidence of atrial septal defect, but resolution does not allow assessment for a patent foramen ovale. Mitral Valve * The mitral valve is grossly normal. * There is no mitral valve stenosis. * There is mild mitral regurgitation. Tricuspid Valve * The tricuspid valve is not well visualized, but is grossly normal. * There is no tricuspid stenosis. * There is mild tricuspid regurgitation. * Doppler findings do not suggest pulmonary hypertension. Aortic Valve * The aortic valve is not well visualized. * The aortic valve opens well. * Aortic valve sclerosis mild, without significant aortic valvular stenosis. * There is no significant aortic regurgitation. Pulmonic Valve * The pulmonary valve is not well seen, but the Doppler examination is normal without significant regurgitation or stenosis. Great Vessels * The aortic root is normal size. * The pulmonary is not well visualized. Pericardium/Pleural * There is no pericardial effusion. Great Vessels * Normal inferior vena cava size and collapsability with sniff indicates a normal right atrial pressure of 3 mmHg MMode 2D Measurements and Calculations IVSd 0.85 cm IVSs 1.4 cm LVIDd 4.1 cm LVIDs 2.9 cm LVPWd 0.68 cm LVPWs 1.3 cm IVS/LVPW 1.2 FS 27.5 % EDV(Teich) 72.9 ml ESV(Teich) 33.6 ml EF(Teich) 54.0 % EDV(cubed) 67.4 ml ESV(cubed) 25.7 ml EF(cubed) 61.9 % % IVS thick 69.5 % % LVPW thick 95.5 % LV mass(C)d 90.9 grams LV mass(C)dI 51.9 grams/m\S\2 LV mass(C)s 135.5 grams LV mass(C)sI 77.4 grams/m\S\2 CO(Teich) 2.4 l/min CI(Teich) 1.3 l/min/m\S\2 SV(Teich) 39.4 ml SI(Teich) 22.5 ml/m\S\2 CO(cubed) 2.5 l/min CI(cubed) 1.4 l/min/m\S\2 SV(cubed) 41.8 ml SI(cubed) 23.9 ml/m\S\2 ACS 0.91 cm LA dimension 3.6 cm asc Aorta Diam 3.0 cm LVOT diam 1.7 cm LVOT area 2.4 cm\S\2 LVAd ap4 24.9 cm\S\2 LVLd ap4 7.3 cm EDV(MOD-sp4) 70.0 ml LVAs ap4 12.8 cm\S\2 LVLs ap4 5.8 cm ESV(MOD-sp4) 24.0 ml EF(MOD-sp4) 65.7 % LVAd ap2 21.0 cm\S\2 LVLd ap2 6.7 cm EDV(MOD-sp2) 54.0 ml LVAs ap2 10.9 cm\S\2 LVLs ap2 5.3 cm ESV(MOD-sp2) 19.0 ml EF(MOD-sp2) 64.8 % CO(MOD-sp4) 2.8 l/min CI(MOD-sp4) 1.6 l/min/m\S\2 SV(MOD-sp4) 46.0 ml SI(MOD-sp4) 26.3 ml/m\S\2 CO(MOD-sp2) 2.1 l/min CI(MOD-sp2) 1.2 l/min/m\S\2 SV(MOD-sp2) 35.0 ml SI(MOD-sp2) 20.0 ml/m\S\2 Doppler Measurements and Calculations MV E max cisco 103.2 cm/sec MV A max cisco 92.3 cm/sec MV E/A 1.1 MV dec time 0.24 sec Ao V2 max 138.1 cm/sec Ao max PG 7.6 mmHg Ao max PG (full) 2.6 mmHg LEONARD(V,A) 1.9 cm\S\2 LEONARD(V,D) 1.9 cm\S\2 LV V1 max PG 5.1 mmHg LV V1 max 112.5 cm/sec PA V2 max 59.7 cm/sec PA max PG 1.4 mmHg TR max cisco 238.8 cm/sec
--- NOTE | 2017-05-29 14:35 | Psychiatric Consultation ---
Consultation Date of Consultation May 29, 2017. Identifying Data Anuradha Wolff is a 77 year old female who resides alone in [place]. Consult for depression. Chief Complaint "I'm tired". History of Present Illness Patient is a 77 year old female whose was admitted to telemetry for evaluation of syncope versus seizure. Patient reports that she was at [employer] and felt dizzy. She does not think she passed out but the ambulance was called and she was brought to the emergency room yesterday. There is concern that she has had significant cognitive decline in the past year and 4 months since the unexpected of her . Patient reports that she and her were going away and that as they walked to the car, her collapsed and . She repeats this sorry 5 times during our interview, seemingly doesn't remember that she had already told me this. Patient denies symptoms of depression and scored 0 on the PHQ-9 administered by Liaison Nurse. However patient reports that she hasn't cooked or turned on the TV since his . She reports that she has lost 70 lbs since December of 2015 although no weight loss over the past couple months. Her memory is impaired and to many questions her response is "I can't think right now, it's that time of day." She endorses being nervous, worried, worked up frequently since her . She doesn't consider this to be depression. She does think that her PCP prescribed a medication for this but hasn't taken it very often and reports taking only when "really worked up." Liaison Nurse was able to determine that PCP ordered zoloft 25 mg and the prescription was picked up at [facility] in [place] on 02/17/2017. A refill was sent in February 2017 but was never picked up. Patient denies any thoughts, intention or plan for suicide. She has no prior history of mental health treatment. She has no history of suicide attempts. Patient does worry about being "allergic to medication" in a general sense and reports that she doesn't remember what happened when she took Valium or Meperidine, her two coded allergies, other than she was "nervous." Patient had a neurology consult today. She had a neuropsych testing in February which reported showed mixed Alzheimer's and vascular type dementia. Past Psychiatric History Current OP Treatment: no current treatment Prior OP Treatment: no prior treatment Prior Psych Hospitalizations: none Access to a Gun: No Suicide Attempts: No Past Medical/Surgical History History of Concussion/Seizure: Yes (neurology in process of ruling out seizure) Allergies Allergies: Coded Allergies: Diazepam (Verified Allergy, Unknown, LISTED BY MD ADVERSE RX, 05/28/17) Meperidine (Verified Allergy, Unknown, 05/28/17) Home Medications Scheduled Diltiazem Hcl Extended Release (Taztia Xt), 300 MG PO HS Lisinopril/Hctz (Zestoretic 20MG/25MG), 1 TAB PO DAILY Sertraline (Zoloft), 25 MG PO DAILY Simvastatin (Zocor), 40 MG PO QPM Family History FH: diabetes mellitus FH: heart disease FH: hypertension Patient does not know her family history and was raised by family friends. Alcohol Use Alcohol Use In Past 12 Months: No Smoking Use Smoking Status: Never Smoker Personal History Relationship History: Children: Patient has 3 children. Daughter who lives in [place] is POA. Legal History: none Psychological Trauma History: Other ("states I have lived a life." She does not feel she has been abused) Review of Systems Constitutional: other (tired) Eyes: reports: no symptoms ENT: reports: no symptoms reported Cardiovascular: reports: no symptoms reported Respiratory: reports: no symptoms reported Gastrointestinal: no symptoms reported Genitourinary - Female: reports: no symptoms Musculoskeletal: no symptoms reported Integumentary: no symptoms reported Neurologic: reports: memory loss, dizziness Endocrine: no symptoms Examination Physical Examination Physical Exam by Katiana Harkins PA-C reviewed and adequate for our purposes Vital Signs Vital Signs Past 12 Hours Date Time Temp Pulse Resp B/P (MAP) Pulse Ox O2 Delivery O2 Flow Rate FiO2 05/29/17 12:01 98 Room Air 05/29/17 11:37 37.0 63 18 169/62 (97) 97 Room Air 05/29/17 10:24 73 95 05/29/17 08:01 98 Room Air 05/29/17 07:51 36.8 57 18 149/77 (101) 98 Room Air 05/29/17 04:00 36.9 59 16 132/55 (80) 98 Room Air 05/29/17 04:00 97 Room Air Laboratory Results Last 24 Hours Test 05/28/17 17:25 05/28/17 20:30 05/28/17 23:33 05/29/17 06:33 Troponin I < 0.015 ng/ml < 0.015 ng/ml Bedside Glucose 178 mg/dl Sodium Level 132 mmol/L 130 mmol/L Potassium Level 3.7 mmol/L 3.9 mmol/L Chloride Level 96 mmol/L 96 mmol/L Carbon Dioxide Level 31 mmol/L 29 mmol/L Anion Gap 5.0 mmol/L 5.0 mmol/L Blood Urea Nitrogen 17 mg/dl 12 mg/dl Creatinine 0.96 mg/dl 0.83 mg/dl Est Creatinine Clear Calc Drug Dose 44.2 ml/min 51.1 ml/min Estimated GFR () 66.1 78.8 Estimated GFR (Non- 57.0 68.0 BUN/Creatinine Ratio 17.7 14.1 Random Glucose 120 mg/dl 124 mg/dl Calcium Level 9.5 mg/dl 9.1 mg/dl White Blood Count 7.38 K/uL Red Blood Count 3.88 M/uL Hemoglobin 12.7 g/dL Hematocrit 35.5 % Mean Corpuscular Volume 91.5 fL Mean Corpuscular Hemoglobin 32.7 pg Mean Corpuscular Hemoglobin Concent 35.8 g/dl RDW Standard Deviation 38.3 fL RDW Coefficient of Variation 11.5 % Platelet Count 348 K/uL Mean Platelet Volume 8.8 fL Estimated Average Glucose 137 mg/dl Hemoglobin A1c 6.4 % Magnesium Level 2.0 mg/dl Vitamin B12 Level 646 pg/mL Test 05/29/17 06:56 Bedside Glucose 139 mg/dl Mental Examination During interview pt is: cooperative Appearance: appropriately dressed Eye contact is: good Motor behavior is: other (unremarkable. sitting up in bed ) Speech: normal in rate, rhythm & volume Affect: labile (tearful when talking about dying otherwise affect flat to normal) Mood is: anxious Thought content: preoccupation (with 's ) Suicidal thought are: denied Homicidal thoughts are: denied Hallucinations: denies auditory, denies visual Cognition: other (memory is impaired. oriented to place, month, year. does not remember when she was last since by PCP.) Insight: limited Judgement: limited Impression / Recommendations Impression Reviewed with Dr. Josefa Jackson Patient is a 77 year old female who is experiencing cognitive decline which may be worsened by anxiety and depression since the of her December 2015. Patient rarely cooks for herself. She does have some support from a cousin and his who live nearby as well as neighbors and has Meals on Wheels 3 days/week. She reports getting easily worked up and worried generally. She denies "depression" but has been sad and lonely since the passing of her . She was prescribed Zoloft by her PCP which she hasn't taken consistently. She is only taking when she "gets really worked up." She denies any suicidal or homicidal ideation. She does not meet criteria for inpatient mental health treatment. Patient' daughter is hoping for placement in long term care phlebotomist care facility and patient would benefit from being followed by psychiatry there. Patient agrees to restart Zoloft 25 mg daily (already ordered by primary team). Reviewed the risks, benefits and alternatives including black box warning. She denied any side effects from when she took it before. She is agreeable to this dose and says she sensitive to medication. Explained that this medication is unlikely to be of benefit unless it is taken consistently. Would consider titration is patient tolerating well for a few days.
--- NOTE | 2017-05-29 23:44 | Medical Student: [facility] ---
Med Student History & Physical Date & Time of Service: May 29, 2017 at 23:07 Chief Complaint: Near Syncope Primary Care Physician: RV. Newby MD History of Present Illness Source: patient Anuradha Wolff is a 77 year old female with a history of type 2 Diabetes, dementia, anxiety and depression, hyperlipidemia, and chronic hyponatremia who was admitted from the ED yesterday 05/28/2017 for evaluation of presyncope. She was sitting at jain when all of a sudden she began to feel dizzy, lightheaded , and started to pass out. She denies actually losing consciousness. She has experienced episodes like this in the past, but nothing as severe as Monday. She reports that she forgot to eat or drink anything before jain, and began to feel better after having a snack and something to drink. Past Medical/Surgical History Medical Problems: (1) Chronic hyponatremia Status: Acute (2) Dementia Status: Acute (3) Hyponatremia Status: Acute (4) Left ankle sprain Status: Acute (5) Sinus bradycardia Status: Acute (6) Syncope Status: Acute (7) Syncope Status: Acute Family History Patient does not know biological parents Social History Lives at home alone. Forgetful and has some signs of dementia, but able to live independently. No contact with 2/3 children. Only child that stays in contact coming to visit Monday Smoking Status: Never Smoker Smokeless Tobacco Use: No Alcohol Use: none Drug Use: none Marital Status: Housing status: lives alone Occupational Status: retired Allergies Coded Allergies: Diazepam (Verified Allergy, Unknown, LISTED BY MD ADVERSE RX, 05/28/17) Meperidine (Verified Allergy, Unknown, 05/28/17) Medications Diltiazem Hcl Extended Release (Taztia Xt), 300 MG PO HS Lisinopril/Hctz (Zestoretic 20MG/25MG), 1 TAB PO DAILY Sertraline (Zoloft), 25 MG PO DAILY Simvastatin (Zocor), 40 MG PO QPM Review of Systems Constitutional: No fever, No chills, No sweats, No weakness Eyes: No worsening of vision ENT: No hearing loss Respiratory: No cough, No shortness of breath Cardiovascular: No chest pain Abdomen: No pain, No nausea, No vomiting, No diarrhea, No constipation Genitourinary - Female: No dysuria, No hematuria Neurologic: No paralysis, No weakness, No numbness/tingling Psychiatric: + depression symptoms Endocrine: + fatigue Physical Exam Vital Signs (24 Hours) Date Time Temp Pulse Resp B/P (MAP) Pulse Ox O2 Delivery O2 Flow Rate FiO2 05/29/17 20:00 Room Air 05/29/17 19:11 36.9 63 18 146/70 (95) 98 Room Air 05/29/17 16:01 98 Room Air 05/29/17 15:34 37.0 66 20 179/72 (107) 97 Room Air 68 183/74 (110) 74 160/74 (102) 05/29/17 15:30 37.0 66 20 179/72 (107) 98 Room Air 68 183/74 (110) 74 160/74 (102) 05/29/17 12:01 98 Room Air 05/29/17 11:37 37.0 63 18 169/62 (97) 97 Room Air 05/29/17 10:24 73 95 05/29/17 08:01 98 Room Air 05/29/17 07:51 36.8 57 18 149/77 (101) 98 Room Air 05/29/17 04:00 36.9 59 16 132/55 (80) 98 Room Air 05/29/17 04:00 97 Room Air 05/28/17 23:59 97 Room Air 05/28/17 23:56 36.7 61 18 173/57 (95) 97 Room Air General Appearance: WD/WN, no apparent distress Head: normocephalic, atraumatic Eyes: normal inspection, PERRL, EOMI ENT: normal ENT inspection, hearing grossly normal, TMs normal, pharynx normal Neck: supple, no adenopathy, thyroid normal, no JVD Respiratory/Chest: chest non-tender, lungs clear, normal breath sounds Cardiovascular: regular rate, rhythm, no gallop, no murmur Abdomen/GI: normal bowel sounds, non tender, soft Extremities/Musculoskelatal: no calf tenderness, no pedal edema Neurologic/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: 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 II-XII nml as tested, no motor/sensory deficits, alert, oriented x 3, + depressed affect Skin: normal color, warm/dry Diagnostics Laboratory Results Results Past 24 Hours Test 05/28/17 23:33 05/29/17 06:33 05/29/17 06:56 05/29/17 11:20 Range/Units Sodium Level 132 130 136-145 mmol/L Potassium Level 3.7 3.9 3.5-5.1 mmol/L Chloride Level 96 96 98-107 mmol/L Carbon Dioxide Level 31 29 21-32 mmol/L Anion Gap 5.0 5.0 3-11 mmol/L Blood Urea Nitrogen 17 12 7-18 mg/dl Creatinine 0.96 0.83 0.60-1.20 mg/dl Est Creatinine Clear Calc Drug Dose 44.2 51.1 ml/min Estimated GFR () 66.1 78.8 Estimated GFR (Non- 57.0 68.0 BUN/Creatinine Ratio 17.7 14.1 10-20 Random Glucose 120 124 70-99 mg/dl Calcium Level 9.5 9.1 8.5-10.1 mg/dl Troponin I < 0.015 0-0.045 ng/ml White Blood Count 7.38 4.8-10.8 K/uL Red Blood Count 3.88 4.2-5.4 M/uL Hemoglobin 12.7 12.0-16.0 g/dL Hematocrit 35.5 37-47 % Mean Corpuscular Volume 91.5 80-100 fL Mean Corpuscular Hemoglobin 32.7 25-34 pg Mean Corpuscular Hemoglobin Concent 35.8 32-36 g/dl RDW Standard Deviation 38.3 36.4-46.3 fL RDW Coefficient of Variation 11.5 11.5-14.5 % Platelet Count 348 130-400 K/uL Mean Platelet Volume 8.8 7.4-10.4 fL Estimated Average Glucose 137 mg/dl Hemoglobin A1c 6.4 4.5-5.6 % Magnesium Level 2.0 1.8-2.4 mg/dl Vitamin B12 Level 646 211-911 pg/mL Bedside Glucose 139 113 70-90 mg/dl Test 05/29/17 16:24 05/29/17 20:47 Range/Units Bedside Glucose 114 130 70-90 mg/dl Diagnostic Radiology HEAD CT NONCONTRAST CT DOSE: 537.48 mGy.cm HISTORY: weakness, syncope TECHNIQUE: Multiaxial CT images of the head were performed without the use of intravenous contrast. Automated exposure control was utilized for this study. A dose lowering technique was utilized adhering to the principles of ALARA. Comparison: Head CT 12/08/2016. Findings: The paranasal sinuses and mastoid air cells are clear. The calvarium and skull base are intact. There is no mass, hematoma, midline shift, acute infarct. White matter hypodensity is nonspecific but suggestive of microvascular ischemic change. The ventricles and sulci demonstrate mild age-related involutional changes. Impression: No significant change compared to the prior study. No acute intracranial abnormality. EEG This is a normal awake only routine EEG There was no electrographic seizures or epileptiform discharges. CXR normal EKG Sinus Bradycardia Impression Assessment and Plan 1. Acute Syncopal Episode Ms. Wolff denies urinary incontinence or tongue biting during the episode nor was there any report of increased stiffness or generalized shaking from bystanders. She also does not recall any drowsiness or confusion when coming back to consciousness, so seizure as a cause seems less likely. Work up should be done for other etiologies including: -Cardiac: EKG revealed bradycardia - Serial cardiac enzymes negative, decreasing likelihood of OR - bradycardic on admit - possibly due to over medication with diltiazem - Hold Diltiazem 300 mg daily and Lisinopril/HCTZ 20 mg/25 mg - Echo 05/28 -- Conclusions -- * Left ventricular systolic function is normal. * No regional wall motion abnormalities noted. * Ejection Fraction = 60-65%. * There is mild mitral regurgitation. * There is mild tricuspid regurgitation. -Metabolic: hypoglycemia: patient took their medication, but she did not eat that morning, making this etiology more likely. 2. Anxiety/Depression: Prolonged Bereavement/Pseudo-Dementia vs Organic Cognitive Impairment - Patient has been evaluated by Dash Lamar at [facility] which findings supporting possible Dementia/Alzheimers - outpatient neurology appt - Dr. Strickland on 06/05 already scheduled - Sertraline 25 mg daily - Appreciate Neurology recs: Vit B12 level = 646, checking thiamine, asa 81 mg daily 3. HTN: - Hold anti-hypertensives as above and cover with Hydralazine at this time 4. Chronic Hyponatremia: - Largely baseline for patient - did receive fluids in ED - Urine/Serum Osm and random urine Na - will await on further labs - allow patient to take in orally and will monitor BMP 5. Chronic Leukocytosis: - Patient presents with a mildly elevated WBC with last few elevated - no immediate source of infection - will await U/A 6. T2DM: - PCP notes reviewed and patient has had hesitancy and refuses new medications - plan for dietary management - Will obtain A1c = 6.4 DVT Prophylaxis: SOFIE/SCDs Advanced Directives Existing Living Will: No Existing Power of Waterproof Bag Cutting Machine Operator: Yes (Pt's daughter, Janae.)
[2017-05-30] VITALS (7 sets, daily range): BP systolic 158–179; BP diastolic 68–78; PULSE 64–75; TEMP 36.6–36.8; O2SAT 97–98
[2017-05-30] MEDS: INSULIN ASPART 100 UNITS/ML 3 ML PEN SC SCH ×2 (06:21→11:00)
[2017-05-30] MEDS: SERTRALINE HCL 50 MG TAB PO SCH (07:07)
[2017-05-30 07:14] LABS: HEMATOCRIT 38.1 % (37-47); MEAN CELL VOLUME 91.1 fL (80-100); MEAN CORPUSCULAR HEMOGLOBIN 31.6 pg (25-34); MEAN CORPUSCULAR HGB CONC 34.6 g/dl (32-36); MEAN PLATELET VOLUME 8.8 fL (7.4-10.4); PLATELET COUNT 359 K/uL (130-400); RED BLOOD COUNT 4.18 M/uL (4.2-5.4); WHITE BLOOD COUNT 6.41 K/uL (4.8-10.8)
[2017-05-30 07:57] LABS: BUN/CREATININE RATIO 13.2 (10-20); CALCIUM 9.1 mg/dl (8.5-10.1); CREATININE 0.94 mg/dl (0.60-1.20); MAGNESIUM 1.9 mg/dl (1.8-2.4); POTASSIUM 4.2 mmol/L (3.5-5.1)
--- NOTE | 2017-05-30 08:35 | Hospitalist Progress Note ---
Hospitalist Progress Note Date of Service May 30, 2017. (Rica Cadet PA-C) Subjective Pt evaluation today including: conversation w/ patient, physical exam, chart review, lab review, review of studies Pain: None PO Intake: Good Voiding: no voiding problems The patient was seen and examined this morning. Pt reports doing well overall. She had a bowel movement this morning which was large. She denies any dark or tarry stools, diarrhea, or blood in stool. An MRI was ordered this morning but was not obtained as the MRI staff did not feel the patient would be able to accurately answer questionnaire, and when the daughter, Janae, was called, she refused having the MRI done. The patient has f/u with neurology next Monday. Constitutional: No fever, No chills, No sweats Eyes: No redness, No diplopia ENT: No hearing loss, No sore throat Respiratory: No cough, No sputum, No wheezing, No shortness of breath Cardiovascular: No chest pain, No edema Abdomen: No pain, No nausea, No vomiting, No diarrhea, No constipation Musculoskeletal: No joint pain, No muscle pain, No swelling Neurologic: + memory loss, No weakness, No balance problems Endo: No fatigue Skin: No rash, No itch (Rica Cadet PA-C) Objective Vital Signs Date Time Temp Pulse Resp B/P (MAP) Pulse Ox O2 Delivery O2 Flow Rate FiO2 05/30/17 07:40 36.6 71 18 158/68 (98) 97 Room Air 05/30/17 04:32 36.8 64 16 178/75 (109) 97 Room Air 05/30/17 04:00 Room Air 05/30/17 01:07 75 163/78 (106) 05/29/17 23:59 Room Air 05/29/17 23:58 37.0 71 16 187/72 (110) 94 Room Air 05/29/17 23:54 37.0 71 16 187/77 (113) 94 Room Air 05/29/17 20:00 Room Air 05/29/17 19:11 36.9 63 18 146/70 (95) 98 Room Air 05/29/17 16:01 98 Room Air 05/29/17 15:34 37.0 66 20 179/72 (107) 97 Room Air 68 183/74 (110) 74 160/74 (102) 05/29/17 15:30 37.0 66 20 179/72 (107) 98 Room Air 68 183/74 (110) 74 160/74 (102) 05/29/17 12:01 98 Room Air 05/29/17 11:37 37.0 63 18 169/62 (97) 97 Room Air 05/29/17 10:24 73 95 (Rica Cadet PA-C) Physical Exam Notes: General Appearance: WD/WN, no apparent distress Eyes: PERRL, EOMI ENT: hearing grossly normal, pharynx normal Neck: supple, no JVD Respiratory/Chest: lungs clear, no respiratory distress, no accessory muscle use Cardiovascular: regular rate, rhythm, + systolic murmur (holosystolic, grade III/IV) Abdomen: normal bowel sounds, non tender, soft Extremities: non-tender, no pedal edema, no calf tenderness Neurologic/Psychiatric: no motor/sensory deficits, alert, + disoriented, + pertinent finding (poor short term memory) Skin: normal color, warm/dry (Rica Cadet, ANGELICA) Laboratory Results Last 24 Hours Test 05/29/17 11:20 05/29/17 16:24 05/29/17 20:47 05/30/17 06:16 Bedside Glucose 113 mg/dl 114 mg/dl 130 mg/dl 108 mg/dl Test 05/30/17 06:47 05/30/17 06:57 Bedside Glucose 173 mg/dl White Blood Count 6.41 K/uL Red Blood Count 4.18 M/uL Hemoglobin 13.2 g/dL Hematocrit 38.1 % Mean Corpuscular Volume 91.1 fL Mean Corpuscular Hemoglobin 31.6 pg Mean Corpuscular Hemoglobin Concent 34.6 g/dl RDW Standard Deviation 37.7 fL RDW Coefficient of Variation 11.3 % Platelet Count 359 K/uL Mean Platelet Volume 8.8 fL Sodium Level 129 mmol/L Potassium Level 4.2 mmol/L Chloride Level 94 mmol/L Carbon Dioxide Level 28 mmol/L Anion Gap 7.0 mmol/L Blood Urea Nitrogen 12 mg/dl Creatinine 0.94 mg/dl Est Creatinine Clear Calc Drug Dose 45.1 ml/min Estimated GFR () 67.8 Estimated GFR (Non- 58.5 BUN/Creatinine Ratio 13.2 Random Glucose 184 mg/dl Calcium Level 9.1 mg/dl Magnesium Level 1.9 mg/dl (Rica Cadet, ANGELICA) Assessment and Plan 77 y/o female with Anxiety/Depression, Cognitive Impairment/Dementia, Chronic Hyponatremia, T2DM (dietary management), HLD, and HTN who presents after syncopal episode. Syncope: Poor Oral Intake vs Arrhythmia vs Accidental Medication Overdose - serial cardiac enzymes neg - bradycardic on admit - resolved at this time, BP is elevated. - Restart Diltiazem 300 mg daily - Restart Lisinopril/HCTZ 20 mg/25 mg this morning with elevated BP. Possible that the patient had taken extra dose of diltiazem. Pt would benefit from extra support for organizing her medications but is refusing home health services. - Echo 05/28 -- Conclusions -- * Left ventricular systolic function is normal. * No regional wall motion abnormalities noted. * Ejection Fraction = 60-65%. * There is mild mitral regurgitation. * There is mild tricuspid regurgitation. Anxiety/Depression: Prolonged Bereavement/Pseudo-Dementia vs Organic Cognitive Impairment - Patient has been evaluated by Dash Lamar at [facility] which findings supporting possible Dementia/Alzheimers - pt was NOT deemed incompetent , therefore can make her own decisions. - outpatient neurology appt - Dr. Strickland on 06/05 already scheduled - Daughter refused MRI for the patient this morning over the phone, she has neurology follow up next Monday as above. - Pt is refusing home health services - Sertraline 25 mg daily - Appreciate Neurology recs: checking MRI, Vit B12 level = 646, checking thiamine, asa 81 mg daily, and EEG reviewed which showed small vessel ischemic disease - Consult psychiatry - appreciate recs HTN: - Restart lisinopril/hctz with elevated BPs this morning. Also restart cardizem. Chronic Hyponatremia: - Largely baseline for patient - did receive fluids in ED - Urine/Serum Osm and random urine Na - will await on further labs - allow patient to take in orally and will monitor BMP Chronic Leukocytosis: - Patient presents with a mildly elevated WBC with last few elevated - no immediate source of infection - UA is negative. T2DM: - PCP notes reviewed and patient has had hesitancy and refuses new medications - plan for dietary management - Will obtain A1c = 6.4 - ISS with accuchecks achs DVT Prophylaxis: SOFIE/SCDs; may need DVT prophylaxis pending on length of stay Disposition: From home alone, PT/OT [facility] page to assist with d/c planning with increasing dementia and question if she's safe to go home by herself. (Rica Cadet, PA-C) I agree with PA assessment and plan and have seen and examined pt myself Resting comfortably in bed Alert and oriented x 3 Capable of making own decisions Refusing MRI WIll f/u with neuro next week No further recs at this time Stable for discharge home (Ishaan Lopez, D.O.)
[2017-05-30] MEDS ORDERED: LORAZEPAM 1 MG TAB PO SCH (09:30)
--- NOTE | 2017-05-30 11:03 | Medical Student: [facility] ---
Med Student Progress Note Date of Service May 30, 2017. Subjective Pt evaluation today including: conversation w/ patient This morning Anuradha lost control of her bowels in her bed and on the way to the toilet, and was embarrassed and visibly upset. She did not fall or lose consciousness. After some reassurance, she was able to have a conversation with me. She reports that she feels about the same as yesterday. Other than this accident, she reports she had been voiding and moving her bowels normally, and her appetite has been good. Denied any new symptoms or complaints. Review of Systems Constitutional: No fever, No chills, No sweats, No weakness, No fatigue Eyes: No problem reported ENT: No problem reported Respiratory: No cough, No shortness of breath Cardiac: No chest pain, No palpitations Abdomen: + diarrhea, No pain, No nausea, No vomiting, No constipation Neurologic: No paralysis, No weakness, No numbness/tingling Psychiatric: + depression symptoms Objective Vital Signs Date Time Temp Pulse Resp B/P (MAP) Pulse Ox O2 Delivery O2 Flow Rate FiO2 05/30/17 08:29 98 Room Air 05/30/17 07:40 36.6 71 18 158/68 (98) 97 Room Air 05/30/17 04:32 36.8 64 16 178/75 (109) 97 Room Air 05/30/17 04:00 Room Air 05/30/17 01:07 75 163/78 (106) 05/29/17 23:59 Room Air 05/29/17 23:58 37.0 71 16 187/72 (110) 94 Room Air 05/29/17 23:54 37.0 71 16 187/77 (113) 94 Room Air 05/29/17 20:00 Room Air 05/29/17 19:11 36.9 63 18 146/70 (95) 98 Room Air 05/29/17 16:01 98 Room Air 05/29/17 15:34 37.0 66 20 179/72 (107) 97 Room Air 68 183/74 (110) 74 160/74 (102) 05/29/17 15:30 37.0 66 20 179/72 (107) 98 Room Air 68 183/74 (110) 74 160/74 (102) 05/29/17 12:01 98 Room Air 05/29/17 11:37 37.0 63 18 169/62 (97) 97 Room Air Physical Exam General Appearance: WD/WN, + mild distress Eyes: bilateral eyes normal inspection, bilateral eyes PERRL, bilateral eyes EOMI ENT: normal ENT inspection, hearing grossly normal, TMs normal, pharynx normal Neck: supple, no adenopathy, thyroid normal, no JVD, no carotid bruits, trachea midline Respiratory/Chest: chest non-tender, lungs clear, normal breath sounds, no respiratory distress Cardiovascular: regular rate, rhythm, no gallop, no murmur Abdomen: normal bowel sounds, non tender, soft Extremities: normal range of motion, non-tender, normal inspection Neurologic/Psychiatric: threader II-XII nml as tested, no motor/sensory deficits, alert, oriented x 3 Skin: normal color, warm/dry, no rash Laboratory Results Last 24 Hours Test 05/29/17 11:20 05/29/17 16:24 05/29/17 20:47 05/30/17 06:16 Bedside Glucose 113 mg/dl 114 mg/dl 130 mg/dl 108 mg/dl Test 05/30/17 06:47 05/30/17 06:57 Bedside Glucose 173 mg/dl White Blood Count 6.41 K/uL Red Blood Count 4.18 M/uL Hemoglobin 13.2 g/dL Hematocrit 38.1 % Mean Corpuscular Volume 91.1 fL Mean Corpuscular Hemoglobin 31.6 pg Mean Corpuscular Hemoglobin Concent 34.6 g/dl RDW Standard Deviation 37.7 fL RDW Coefficient of Variation 11.3 % Platelet Count 359 K/uL Mean Platelet Volume 8.8 fL Sodium Level 129 mmol/L Potassium Level 4.2 mmol/L Chloride Level 94 mmol/L Carbon Dioxide Level 28 mmol/L Anion Gap 7.0 mmol/L Blood Urea Nitrogen 12 mg/dl Creatinine 0.94 mg/dl Est Creatinine Clear Calc Drug Dose 45.1 ml/min Estimated GFR () 67.8 Estimated GFR (Non- 58.5 BUN/Creatinine Ratio 13.2 Random Glucose 184 mg/dl Calcium Level 9.1 mg/dl Magnesium Level 1.9 mg/dl Medications Current Inpatient Medications Medications (Trade) Dose Ordered Sig/Kecia Route Start Time Stop Time Status Last Admin Dose Admin Acetaminophen (Tylenol Tab) 650 mg Q4H PRN PO 05/28/17 16:00 06/27/17 15:59 Al Hydrox/Mg Hydrox/Simethicone (Maalox Max Susp) 15 ml Q4H PRN PO 05/28/17 16:00 06/27/17 15:59 Magnesium Hydroxide (Milk Of Magnesia Susp) 30 ml Q12H PRN PO 05/28/17 16:00 06/27/17 15:59 Ondansetron HCl (Zofran Inj) 4 mg Q6H PRN IV 05/28/17 16:00 06/27/17 15:59 Polyethylene (Miralax Powder Packet) 17 gm DAILY PRN PO 05/28/17 16:00 06/27/17 15:59 Sertraline HCl (Zoloft Tab) 25 mg QAM PO 05/29/17 09:00 06/28/17 08:59 05/30/17 07:07 25 MG Miscellaneous (Iv Fluids Completed) 1 ea PRN PRN N/A 05/28/17 16:15 05/28/18 16:14 Insulin Aspart (novoLOG ASPART) SLIDING SCALE If C... ACHS SC 05/28/17 21:00 06/27/17 20:59 Glucose (Glucose 40% Gel) 15-30 GRAMS 15 GRAMS... UD PRN PO 05/28/17 17:00 06/27/17 16:59 Glucose (Glucose Chew Tab) 4-8 Tablets 4 Tabl... UD PRN PO 05/28/17 17:00 06/27/17 16:59 Dextrose (Dextrose 50% 50ML Syringe) 25-50ML OF 50% DW IV FOR... UD PRN IV 05/28/17 17:00 06/27/17 16:59 Glucagon (Glucagon Inj) 1 mg UD PRN SQ 05/28/17 17:00 06/27/17 16:59 Lorazepam (Ativan Tab) 1 mg TODAY@0930 PO 05/30/17 09:30 05/30/17 23:59 Assessment and Plan Assessment and Plan: 1. Acute Syncopal Episode Ms. Wolff denies urinary incontinence or tongue biting during the episode nor was there any report of increased stiffness or generalized shaking from bystanders. She also does not recall any drowsiness or confusion when coming back to consciousness, so seizure as a cause seems less likely. Work up should be done for other etiologies including: -Cardiac: EKG revealed bradycardia - Serial cardiac enzymes negative, decreasing likelihood of GA - bradycardic on admit - possibly due to over medication with diltiazem: resolved now, since BP is elevated. - Restart Diltiazem 300 mg daily - Restart Lisinopril/HCTZ 20 mg/25 mg - Echo 05/28 -- Conclusions -- * Left ventricular systolic function is normal. * No regional wall motion abnormalities noted. * Ejection Fraction = 60-65%. * There is mild mitral regurgitation. * There is mild tricuspid regurgitation. -Metabolic: hypoglycemia: patient took their medication, but she did not eat that morning, making this etiology more likely. 2. Anxiety/Depression: Prolonged Bereavement/Pseudo-Dementia vs Organic Cognitive Impairment - Patient has been evaluated by Dash Lamar at [facility] which findings supporting possible Dementia/Alzheimers - outpatient neurology appt - Dr. Strickland on 06/05 already scheduled - Sertraline 25 mg daily - Appreciate Neurology recs: Vit B12 level = 646, checking thiamine, asa 81 mg daily - Daughter refused MRI for the patient this morning over the phone, she has neurology follow up next Monday as above. - Pt is refusing home health services 3. HTN: - Restart lisinopril/hctz with elevated BPs this morning. Also restart cardizem. 4. Chronic Hyponatremia: - Largely baseline for patient - did receive fluids in ED - Urine/Serum Osm and random urine Na - will await on further labs - allow patient to take in orally and will monitor BMP 5. Chronic Leukocytosis: - Patient presents with a mildly elevated WBC with last few elevated - no immediate source of infection - U/A negative 6. Type II Diabetes Mellitus: - patient has had hesitancy and refuses new medications - plan for dietary management - Will obtain A1c = 6.4 Full code DVT Prophylaxis: SOFIE/SCDs Disposition: From home alone, PT/OT camilo, health plan manager to assist with discharge planning and question to see if she's safe to go home by herself due to worsening dementia.
[2017-05-30] MEDS ORDERED: LISINOPRIL/HCTZ 20/25MG TAB PO SCH (12:00)
--- NOTE | 2017-05-30 12:05 | Discharge Instructions ---
Discharge Instructions Date of Service May 30, 2017. Admission Reason for Admission: Near Syncope Discharge Discharge Diagnosis / Problem: Near Syncope, bradycardia Discharge Goals Goal(s): Improve function, Increase independence Activity Recommendations Activity Limitations: resume your previous activity Lifting Limitations: no more than 25 pounds, gradually increase as tolerated Exercise/Sports Limitations: rest today, gradually increase as tolerated Shower/Bathe: no limitations Driving or Machine Use: DO NOT DRIVE . Instructions / Follow-Up Instructions / Follow-Up You were admitted to [facility] with near syncope and diagnosed with low heart rate. - Low Heart rate ( ie. Bradycardia) was likely due to inappropriately taken diltiazem due to confusion/ worsening dementia, as no other causes were identified. During your stay here you were treated with intravenous fluids, supportive care , and were evaluated with neurology and psychiatry. An MRI was recommended during your stay, however was refused. You have an outpatient neurology appointment scheduled for next Monday with Dr. Strickland, please discuss needs for MRI at that time. Continue taking all medications as prescribed. Follow up: Follow up with your Primary Care Provider within 1 week. Follow up with Dr Strickland, neurology within 1 week as already scheduled. Current Hospital Diet Patient's current hospital diet: Diabetes Type 2 Diet Discharge Diet Recommended Diet: Diabetes Type 2 Diet Pending Studies Studies pending at discharge: no Laboratory Results Hemoglobin A1c Test 05/29/17 06:33 Range/Units Estimated Average Glucose 137 mg/dl Hemoglobin A1c 6.4 H 4.5-5.6 % Lipid Panel Test 03/07/17 09:12 Range/Units Triglycerides Level 89 0-150 mg/dl Cholesterol Level 159 0-200 mg/dl HDL Cholesterol 80 mg/dl Cholesterol/HDL Ratio 2.0 LDL Cholesterol, Calculated 61 mg/dl Medical Emergencies . Who to Call and When: Medical Emergencies: If at any time you feel your situation is an emergency, please call 911 immediately. . Non-Emergent Contact Non-Emergency issues call your: Primary Care Provider, Neurologist Call Non-Emergent contact if: you have a fever (sweats or chills), temperature is above 100.5, your pain is not controlled (you develop chest pain, shortness of breath, abdominal pain, weakness, lightheadedness, dizziness or worsening confusion), your pain is worsening, you have any medication questions . Past History Medical & Surgical History: (1) Dementia (2) Near syncope (3) Hypercholesterolemia (4) Sinus bradycardia . "Provider Documentation" section prepared by Rema Cadet. . VTE Core Measure Inpt VTE Proph given/why not?: Suzette López, SCD's
--- NOTE | 2017-05-30 12:06 | Discharge Summary ---
Discharge Summary Date of Service May 30, 2017. Discharge Summary Admission Date: May 28, 2017 at 15:55 Discharge Date: May 30, 2017 Discharge Disposition: Home Principal Diagnosis: Near syncope, bradycardia Procedures: CHEST ONE VIEW PORTABLE HISTORY: Atypical CHEST PAIN COMPARISON: Chest 12/08/2016. FINDINGS: The lungs are clear. Cardiac silhouette is normal in size. No pleural effusions. No pneumothorax. IMPRESSION: No acute process. Electronically signed by: Dharmesh Reddy M.D. 05/28/2017 12:09 PM Dictated Date/Time: 05/28/2017 12:08 PM The status of this report is Signed. HEAD CT NONCONTRAST CT DOSE: 537.48 mGy.cm HISTORY: weakness, syncope TECHNIQUE: Multiaxial CT images of the head were performed without the use of intravenous contrast. Automated exposure control was utilized for this study. A dose lowering technique was utilized adhering to the principles of ALARA. Comparison: Head CT 12/08/2016. Findings: The paranasal sinuses and mastoid air cells are clear. The calvarium and skull base are intact. There is no mass, hematoma, midline shift, acute infarct. White matter hypodensity is nonspecific but suggestive of microvascular ischemic change. The ventricles and sulci demonstrate mild age-related involutional changes. Impression: No significant change compared to the prior study. No acute intracranial abnormality. Electronically signed by: Dharmesh Reddy M.D. 05/28/2017 2:19 PM Dictated Date/Time: 05/28/2017 2:17 PM The status of this report is Signed. Consultations: Psychiatry Neurology Medication Reconciliation Continued Medications: Diltiazem Hcl Extended Release (Taztia Xt) 300 Mg Cap 300 MG PO HS Lisinopril/Hctz (Zestoretic 20MG/25MG) Tab 1 TAB PO DAILY, TAB Sertraline (Zoloft) 25 Mg Tab 25 MG PO DAILY, TAB Simvastatin (Zocor) 40 Mg Tab 40 MG PO QPM, TAB Discharge Exam Pt evaluation today including: conversation w/ patient, physical exam, chart review, lab review, review of studies Pain: None PO Intake: Good Voiding: no voiding problems The patient was seen and examined this morning. Pt reports doing well overall. She had a bowel movement this morning which was large. She denies any dark or tarry stools, diarrhea, or blood in stool. An MRI was ordered this morning but was not obtained as the MRI staff did not feel the patient would be able to accurately answer questionnaire, and when the daughter, Janae, was called, she refused having the MRI done. The patient has f/u with neurology next Monday. Constitutional: No fever, No chills, No sweats Eyes: No redness, No diplopia ENT: No hearing loss, No sore throat Respiratory: No cough, No sputum, No wheezing, No shortness of breath Cardiovascular: No chest pain, No edema Abdomen: No pain, No nausea, No vomiting, No diarrhea, No constipation Musculoskeletal: No joint pain, No muscle pain, No swelling Neurologic: + memory loss, No weakness, No balance problems Endo: No fatigue Skin: No rash, No itch Objective Vital Signs Date Time Temp Pulse Resp B/P (MAP) Pulse Ox O2 Delivery O2 Flow Rate FiO2 05/30/17 07:40 36.6 71 18 158/68 (98) 97 Room Air 05/30/17 04:32 36.8 64 16 178/75 (109) 97 Room Air 05/30/17 04:00 Room Air 05/30/17 01:07 75 163/78 (106) 05/29/17 23:59 Room Air 05/29/17 23:58 37.0 71 16 187/72 (110) 94 Room Air 05/29/17 23:54 37.0 71 16 187/77 (113) 94 Room Air 05/29/17 20:00 Room Air 05/29/17 19:11 36.9 63 18 146/70 (95) 98 Room Air 05/29/17 16:01 98 Room Air 05/29/17 15:34 37.0 66 20 179/72 (107) 97 Room Air 68 183/74 (110) 74 160/74 (102) 05/29/17 15:30 37.0 66 20 179/72 (107) 98 Room Air 68 183/74 (110) 74 160/74 (102) 05/29/17 12:01 98 Room Air 05/29/17 11:37 37.0 63 18 169/62 (97) 97 Room Air 05/29/17 10:24 73 95 Physical Exam Notes: General Appearance: WD/WN, no apparent distress Eyes: PERRL, EOMI ENT: hearing grossly normal, pharynx normal Neck: supple, no JVD Respiratory/Chest: lungs clear, no respiratory distress, no accessory muscle use Cardiovascular: regular rate, rhythm, + systolic murmur (holosystolic, grade III/IV) Abdomen: normal bowel sounds, non tender, soft Extremities: non-tender, no pedal edema, no calf tenderness Neurologic/Psychiatric: no motor/sensory deficits, alert, + disoriented, + pertinent finding (poor short term memory) Skin: normal color, warm/dry Hospital Course H&P by Katiana Merlos PA-C. History of Present Illness Source: patient, family (Cousin - Mr. Sanchez) Ms. Wolff is a 77 y/o female with Anxiety/Depression, Cognitive Impairment/ Dementia, Chronic Hyponatremia, T2DM (dietary management), HLD, and HTN who presents to the ED by EMS for a syncopal episode today at [facility]. Patient reports waking up her normal self this AM. She says she has felt well and because she was in a liao she did not eat breakfast. At [facility], she said that she began to feel flushed and lightheaded but does not think she lost consciousness. Cousin at bedside states that she slumped over and it took approximately 3-4 minutes for her to come to. He did note some mild twitching of her body. He says at [facility] they gave her apple juice and a sugar packet and slowly improved. She then developed some nausea without emesis and was treated with Zofran by EMS. He does not describe prolonged fatigue or what would suggest a postictal state. Patient had no tongue biting or loss of bowel/ bladder function. Patient reports an associated headache that is currently resolved. She reports that she thinks this is related to her nerves as she appears to be inappropriately coping with the loss of her that occurred in December 2015. During examination, anytime patient mentioned her she would start to cry. Patient also presented with forgetfulness as she said her recently passed but cannot remember when until the cousin at bedside told her. She also has a tendency to repeat questions and repeat information that she does not remember giving. Patient reports compliance with home medications but family expresses concern. She reports feelings of depression and "bad nerves". She denies illicit drug intake or ETOH. Did state "maybe I should drink and that would help" but reports not having any alcoholic drinks since her passed. She denies SI. She denies fever/chills, CP, SOB, vomiting, abdominal pain, dysuria, constipation/diarrhea, melena/hematochezia. Had a long discussion with cousin, Mr. Sanchez, and her daughter, Janae, over the phone. Her daughter is POA and is planning on flying in from [place] next Monday. Both family members and neighbors have expressed concern for safety of the patient who currently lives alone. Patient will call neighbors and Mr. Sanchez multiple times throughout the day but forget why she called. They are unsure if she is taking her home medications or if she is eating adequately. She does receive Meals on Wheels 3 times a week and is involved with [employer]. Patient had her license revoked and the battery is removed from her car. Patient is due to see neurology, Dr. Strickland, on 06/05. Patient has seen [facility], Jerson Ac, who did a formal psychiatric evaluation and Mini -Mental status exam which suggested underlying dementia/Alzheimer's. Discussion with daughter, she is concerned that patient may be having seizures. However do not suspect this is the case. Patient had a episode in March 2016 that was witnessed by the daughter who reports her eyes rolling back, shaking, being slumped over and was admitted to [facility]. Daughter is realistic that patient may have some underlying dementia but would like to rule out any organic cause such as seizures. PCP notes reviewed that suggest possibly related to depression as she has had progressive memory deficits but more rapid decline noted since 's . Daughter reports four witnessed episodes like her presentation today and are concerned for unwitnessed events as she lives alone. Daughter does feel that patient has had long-standing issues with anxiety and depression that were more obvious after the of her . Patient also expresses a desire to talk with someone and feels alone. It appears services were offered from PCP but patient normally declined or was reluctant to participate. Hospital Course: 77 y/o female with Anxiety/Depression, Cognitive Impairment/Dementia, Chronic Hyponatremia, T2DM (dietary management), HLD, and HTN who presents after syncopal episode. Syncope: Poor Oral Intake vs Arrhythmia vs Accidental Medication Overdose - serial cardiac enzymes neg - bradycardic on admit - resolved at this time, BP is elevated. - Restart Diltiazem 300 mg daily - Restart Lisinopril/HCTZ 20 mg/25 mg this morning with elevated BP. Possible that the patient had taken extra dose of diltiazem prior to admission. Pt would benefit from extra support for organizing her medications but is refusing home health services. - Echo 05/28 -- Conclusions -- * Left ventricular systolic function is normal. * No regional wall motion abnormalities noted. * Ejection Fraction = 60-65%. * There is mild mitral regurgitation. * There is mild tricuspid regurgitation. Anxiety/Depression: Prolonged Bereavement/Pseudo-Dementia vs Organic Cognitive Impairment - Patient has been evaluated by Dash Lamar at [facility] which findings supporting possible Dementia/Alzheimers - pt was NOT deemed incompetent , therefore can make her own decisions. - Pt is refusing home health services - outpatient neurology appt - Dr. Strickland on 06/05 already scheduled - Daughter refused MRI for the patient this morning over the phone, she has neurology follow up next Monday as above. - Sertraline 25 mg daily - Consulted Neurology - appreciate recs: checking MRI, Vit B12 level = 646, checking thiamine, asa 81 mg daily, and EEG reviewed which showed small vessel ischemic disease - Consulted psychiatry - appreciate recs HTN: - Restart lisinopril/hctz with elevated BPs this morning. Also restart cardizem upon discharge. . Chronic Hyponatremia: - Largely baseline for patient - did receive fluids in ED - Urine/Serum Osm and random urine Na - will await on further labs - allow patient to take in orally and will monitor BMP - stable at time of dc Chronic Leukocytosis: - Patient presents with a mildly elevated WBC with last few elevated - no immediate source of infection - UA is negative. T2DM: - PCP notes reviewed and patient has had hesitancy and refuses new medications - plan for dietary management - Will obtain A1c = 6.4 - ISS with accmaryjaneecknydia banerjees DVT Prophylaxis: SOFIE/SCDs Disposition: pt is being discharged to home, lives by herself, family is aware and in agreement with this. Total Time Spent: Greater than 30 minutes This includes examination of the patient, discharge planning, medication reconciliation, and communication with other providers. Discharge Instructions Please refer to the electronic Patient Visit Report (Discharge Instructions) for additional information. Follow-Up Follow up with your Primary Care Provider within 1 week. Follow up with neurology within the next week as already scheduled.
[2017-05-30] MEDS ORDERED: SIMVASTATIN 40 MG TAB PO SCH (21:00)
[2017-07-11] MEDS ORDERED: DSY50 PO (14:09)
[2017-07-11] MEDS ORDERED: VTMD1000 PO (14:09)
[2017-07-11] MEDS ORDERED: ZLF50 PO (14:09)
[2017-07-11] MEDS ORDERED: ARC5 PO (14:09)
== END 2017-05-30 14:24 | disposition home or self-care (01) ==
LOC: EDUNIT# 10:45 → C.EDB 10:47 → C.2T 15:55 → ENRESERV 16:08 → C.2T 16:54
PROVIDERS: ADMIT Hospitalist; ATTEND Hospitalist
DX: R55 Syncope and collapse (principal); R00.1 Bradycardia, unspecified; R07.89 Other chest pain; E87.1 Hypo-osmolality and hyponatremia; E11.9 Type 2 diabetes mellitus without complications; G30.9 Alzheimer's disease, unspecified; F02.80 Dementia in other diseases classified elsewhere, unspecified severity, without behavioral disturbance, psychotic disturbance, mood disturbance, and anxiety; F32.9 Major depressive disorder, single episode, unspecified; I35.8 Other nonrheumatic aortic valve disorders; E78.00 Pure hypercholesterolemia, unspecified; I10 Essential (primary) hypertension; E03.9 Hypothyroidism, unspecified; Z83.3 Family history of diabetes mellitus; Z82.49 Family history of ischemic heart disease and other diseases of the circulatory system

== ENCOUNTER 2017-07-08 21:07 | Inpatient (IN) | payer OTHER ==
[~2017-07-08] VITALS: Ht 165.1 cm; Wt 69.7 kg
[~2017-07-08 21:07] MED LIST changes: +SERT25TA PO
--- NOTE | 2017-07-08 22:33 | EMERGENCY ROOM VISIT NOTE ---
History Report prepared by Toribio: Cee Ford Under the Supervision of: Dr. Davey Hoff M.D. First contact with patient: 21:38 Chief Complaint: ANXIETY Stated Complaint: ANXIETY/VOMIT Nursing Triage Summary: pt arrives BLS from home. pt with history of anxiety. pt states that "this is my nerves". pt states her cousin was over to her house today and got her worked up. pt states he helps her out alot and today he was at her house trying to convince her that she needs to go into a home, then had additional family members over to her house and they were all telling her she needs to go to a home. pt states he got her all worked up and she has been dry heaving all afternoon and is "nervous". pt states she lives alone and has been taking care of herself for a year since her . History of Present Illness The patient is a 77 year old female who presents to the Emergency Room with complaints of persistent anxiety beginning today. The patient presents to the ED by EMS. She had her cousin come over to her house today which got her worked up. She has a history of anxiety. She has anxiety medications at home which she takes as needed. She did not take any today. She states her anxiety is currently improving. She is still feeling shaky. She lives alone and was doing well until today. She feels safe at home. She attributes her anxiety to her cousin coming over today. She has not been sick recently. She denies any thoughts of hurting herself. Pt denies LOC, headache, fevers, chills, diaphoresis, visual changes, neck pain, chest pain, breathing difficulties, nausea, vomiting, abdominal pain, back pain, melena, hematochezia, urinary symptoms, numbness, weakness, lymphadenopathy, rash, or other complaints. She has not had any inpatient's psychiatric care before. Source of History: patient Onset: today Position: other (global) Quality: other (anxiety) Timing: other (persistent) Note: Pt reports feeling shaky. Review of Systems See HPI for pertinent positives and negatives. A total of ten systems were reviewed and were otherwise negative. Past Medical & Surgical Medical Problems: (1) Acute Kidney Failure, Unspecified (2) Altered mental status (3) Anemia Nos (4) Anxiety State Nos (5) Aortic Valve Disorder (6) Diab Macrina Wo Compl, Type Ii Or Unspec Type, Not Uncntrld (7) Hypercholesterolemia (8) Hypertension Nos (9) Hypothyroidism, Unspecified (10) Near syncope (11) Syncope and collapse Family History FH: diabetes mellitus FH: heart disease FH: hypertension Social History Smoking Status: Never Smoker Alcohol Use: none Drug Use: none Marital Status: Occupation Status: retired Current/Historical Medications Scheduled Diltiazem Hcl Extended Release (Taztia Xt), 300 MG PO HS Lisinopril/Hctz (Zestoretic 20MG/25MG), 1 TAB PO DAILY Sertraline (Zoloft), 25 MG PO DAILY Simvastatin (Zocor), 40 MG PO QPM Allergies Coded Allergies: Diazepam (Verified Allergy, Unknown, LISTED BY MD ADVERSE RX, 07/08/17) Meperidine (Verified Allergy, Unknown, 07/08/17) Physical Exam Vital Signs Date Time Temp Pulse Resp B/P (MAP) Pulse Ox O2 Delivery O2 Flow Rate FiO2 07/09/17 00:38 71 18 157/72 99 Room Air 07/08/17 23:17 73 20 168/77 98 Room Air 07/08/17 21:14 36.4 66 20 170/74 99 Room Air Physical Exam GENERAL: Awake, alert, well-appearing, in no distress HENT: Normocephalic, atraumatic. Oropharynx unremarkable. EYES: Normal conjunctiva. Sclera non-icteric. NECK: Supple. No nuchal rigidity. FROM. No JVD. RESPIRATORY: Clear to auscultation. CARDIAC: Regular rate, normal rhythm. Extremities warm and well perfused. Pulses equal. ABDOMEN: Soft, non-distended. No tenderness to palpation. No rebound or guarding. No masses. RECTAL: Deferred. MUSCULOSKELETAL: Chest examination reveals no tenderness. The back is symmetrical on inspection without obvious abnormality. There is no CVA tenderness to palpation. No joint edema. LOWER EXTREMITIES: Calves are equal size bilaterally and non-tender. No edema. No discoloration. NEURO: Normal sensorium. No sensory or motor deficits noted. SKIN: No rash or jaundice noted. PSYCH: Labile mood, inflated affect, no SI or HI. Medical Decision & Procedures Laboratory Results 07/08/17 22:20 Red Blood Count 3.65, Mean Corpuscular Volume 92.6, Mean Corpuscular Hemoglobin 34.2, Mean Corpuscular Hemoglobin Concent 37.0, Mean Platelet Volume 9.2, Neutrophils (%) (Auto) 86.7, Lymphocytes (%) (Auto) 7.1, Monocytes (%) (Auto) 5.5, Eosinophils (%) (Auto) 0.1, Basophils (%) (Auto) 0.1, Neutrophils # (Auto) 12.96, Lymphocytes # (Auto) 1.07, Monocytes # (Auto) 0.83, Eosinophils # (Auto) 0.02, Basophils # (Auto) 0.02 07/08/17 22:20 Test 07/08/17 22:20 07/08/17 22:40 White Blood Count 14.97 K/uL (4.8-10.8) Red Blood Count 3.65 M/uL (4.2-5.4) Hemoglobin 12.5 g/dL (12.0-16.0) Hematocrit 33.8 % (37-47) Mean Corpuscular Volume 92.6 fL (80-100) Mean Corpuscular Hemoglobin 34.2 pg (25-34) Mean Corpuscular Hemoglobin Concent 37.0 g/dl (32-36) Platelet Count 308 K/uL (130-400) Mean Platelet Volume 9.2 fL (7.4-10.4) Neutrophils (%) (Auto) 86.7 % Lymphocytes (%) (Auto) 7.1 % Monocytes (%) (Auto) 5.5 % Eosinophils (%) (Auto) 0.1 % Basophils (%) (Auto) 0.1 % Neutrophils # (Auto) 12.96 K/uL (1.4-6.5) Lymphocytes # (Auto) 1.07 K/uL (1.2-3.4) Monocytes # (Auto) 0.83 K/uL (0.11-0.59) Eosinophils # (Auto) 0.02 K/uL (0-0.5) Basophils # (Auto) 0.02 K/uL (0-0.2) RDW Standard Deviation 41.6 fL (36.4-46.3) RDW Coefficient of Variation 12.1 % (11.5-14.5) Immature Granulocyte % (Auto) 0.5 % Immature Granulocyte # (Auto) 0.07 K/uL (0.00-0.02) Anion Gap 12.0 mmol/L (3-11) Estimated GFR () 56.1 Estimated GFR (Non- 48.4 BUN/Creatinine Ratio 22.4 (10-20) Calcium Level 9.2 mg/dl (8.5-10.1) Total Bilirubin 0.3 mg/dl (0.2-1) Aspartate Amino Transf (AST/SGOT) 18 U/L (15-37) Alanine Aminotransferase (ALT/SGPT) 22 U/L (12-78) Alkaline Phosphatase 108 U/L (45-117) Total Protein 6.9 gm/dl (6.4-8.2) Albumin 3.9 gm/dl (3.4-5.0) Globulin 3.0 gm/dl (2.5-4.0) Albumin/Globulin Ratio 1.3 (0.9-2) Thyroid Stimulating Hormone (TSH) 2.860 uIu/ml (0.300-4.500) Salicylates Level < 1.7 mg/dl (2.8-20) Acetaminophen Level < 2 ug/ml (10-30) Urine Color YELLOW Urine Appearance CLEAR (CLEAR) Urine pH 6.0 (4.5-7.5) Urine Specific [place] 1.020 (1.000-1.030) Urine Protein NEG (NEG) Urine Glucose (UA) TRACE (NEG) Urine Ketones 1+ (NEG) Urine Occult Blood NEG (NEG) Urine Nitrite NEG (NEG) Urine Bilirubin NEG (NEG) Urine Urobilinogen NEG (NEG) Urine Leukocyte Esterase MODERATE (NEG) Urine WBC (Auto) 10-30 /hpf (0-5) Urine RBC (Auto) 0-4 /hpf (0-4) Urine Hyaline Casts (Auto) 1-5 /lpf (0-5) Urine Epithelial Cells (Auto) >30 /lpf (0-5) Urine Bacteria (Auto) NEG (NEG) Urine Opiates Screen NEG (NEG) Urine Methadone, Qualitative NEG (NEG) Urine Barbiturates NEG (NEG) Urine Phencyclidine (PCP) Level NEG (NEG) Ur Amphetamine/Methamphetamine NEG (NEG) MDMA (Ecstasy) Screen NEG (NEG) Urine Benzodiazepines Screen NEG (NEG) Urine Cocaine Metabolite NEG (NEG) Urine Marijuana (THC) NEG (NEG) Laboratory results reviewed by me Medications Administered Medications (Trade) Dose Ordered Sig/Kecia Route Start Time Stop Time Status Last Admin Dose Admin Potassium Chloride (Kcl 10 Meq / Wtr) 10 meq NOW STAT IV 07/08/17 23:40 07/08/17 23:43 DC 07/09/17 00:23 10 MEQ Sodium Chloride 500 ml @ 999 mls/hr Q31M STAT IV 07/08/17 23:40 07/09/17 00:10 DC 07/09/17 00:22 999 MLS/HR Ceftriaxone Sodium (Rocephin Inj) 1 gm NOW STAT IV 07/08/17 23:40 07/08/17 23:44 DC 07/09/17 00:23 1 GM ECG Indication: other Rate (beats per minute): 71 Rhythm: sinus rhythm Findings: PAC, no acute ischemic change ED Course 2141: The patient was evaluated in room C8. A complete history and physical exam was performed. 2334: I spoke with the patient's daughter. She states that the patient lives alone and has been dealing with advancing dementia. They are trying to get her into assisted living, but she is resisting. The patient called EMS several times today and refused to come to the ED. She developed vomiting later and so was brought to the ED. She has been very reluctant to take her medications and her daughter is questioning whether she is taking them at all. She is worried about the patient going home. Upon reexamination, the patient was resting comfortably. I discussed the test results and treatment plan with her. The patient will be evaluated for further management. 2338: I discussed the patient's case with Dr. Mcdaniel, [facility] hospitalist. The patient will be evaluated for further treatment and disposition. 2340: Rocephin Inj 1 gm IV, NSS 1000 ml @ 125 mls/hr IV, NSS 500 ml @ 999 mls/ hr IV, Potassium Chloride 10 meq IV. Medical Decision Triage Nursing notes reviewed. The patient's presentation and history were concerning for anxiety. Etiologies such as mood disorder, toxicologic, infection, hypoglycemia, electrolyte abnormalities, cardiac sources, intracerebral event, neurologic, as well as others were entertained. The patient was evaluated. She notes having a problem with her nerves for some time. She is not suicidal or homicidal. She states that she was stressed out because a family. The patient declined any medication. She was observed. Blood work was obtained . This does not have a mild leukocytosis and hypokalemia. Urinalysis was somewhat concerning for infection. The patient's daughter did call and notes that the patient has been dealing with slowly advancing dementia and trying to help the patient move into assisted living. The patient has been resistant. She also noted patient will frequently so that she is allergic to medications because she is fearful of taking them. She questions if she takes her own medications. The patient was hydrated. She was given IV Rocephin and potassium. Given the current medical issues and social situation further evaluation and management in the hospital was felt to be appropriate. Consultation was made with internal medicine. The patient was evaluated in the Emergency Room for further management. Medication Reconcilliation Current Medication List: was personally reviewed by me Blood Pressure Screening Patient's blood pressure: Elevated blood pressure Referred to hospitalist. Consults Time Called: [id number] Consulting Physician: Dr. Mcdaniel [facility] hospitalist Returned Call: [phone] Discussed the patient's case. The patient will be evaluated for further treatment and disposition. Impression Primary Impression: Vomiting Additional Impressions: UTI (urinary tract infection) Mood disorder Scribe Attestation The scribe's documentation has been prepared under my direction and personally reviewed by me in its entirety. I confirm that the note above accurately reflects all work, treatment, procedures, and medical decision making performed by me. Departure Information Dispostion Being Evaluated By Hospitalist Referrals RV. Newby MD (PCP) Patient Instructions [facility] Problem Qualifiers
[2017-07-08 22:38] LABS: BASO % 0.1 %; BASO ABS # 0.02 K/uL (0-0.2); COMPLETE YES; EOS % 0.1 %; HEMATOCRIT 33.8 % (37-47); IG% 0.5 %; LYMPH % 7.1 %; LYMPH ABS # 1.07 K/uL (1.2-3.4); MEAN CELL VOLUME 92.6 fL (80-100); MEAN CORPUSCULAR HEMOGLOBIN 34.2 pg (25-34); MEAN PLATELET VOLUME 9.2 fL (7.4-10.4); MONO % 5.5 %; NEUT % 86.7 %; PLATELET COUNT 308 K/uL (130-400); RED BLOOD COUNT 3.65 M/uL (4.2-5.4); WHITE BLOOD COUNT 14.97 K/uL (4.8-10.8)
[2017-07-08 22:49] LABS: URINE APPEARANCE CLEAR (CLEAR); URINE BILIRUBIN NEG (NEG); URINE COLOR YELLOW; URINE EPITHELIAL CELL AUTO >30 /lpf (0-5); URINE NITRITE NEG (NEG); UROBILINOGEN NEG (NEG)
[2017-07-08 22:53] LABS: MANUAL MICROSCOPIC REQUIRED? NO; REVIEW REQ? NO
[2017-07-08 23:01] LABS: ALT/SGPT 22 U/L (12-78); AST/SGOT 18 U/L (15-37); BLOOD UREA NITROGEN 25 mg/dl (7-18); BUN/CREATININE RATIO 22.4 (10-20); CALCIUM 9.2 mg/dl (8.5-10.1); CARBON DIOXIDE 24 mmol/L (21-32); CHLORIDE 98 mmol/L (98-107); GLUCOSE 203 mg/dl (70-99); POTASSIUM 3.1 mmol/L (3.5-5.1); SODIUM 134 mmol/L (136-145)
[2017-07-08 23:05] LABS: ACETAMINOPHEN < 2 ug/ml (10-30)
[2017-07-08 23:09] LABS: BENZODIAZEPINE, URINE NEG (NEG); COCAINE,URINE NEG (NEG); PHENCYCLIDINE, URINE NEG (NEG)
[2017-07-08 23:12] LABS: ALB/GLOB RATIO 1.3 (0.9-2); ALKALINE PHOSPHATASE 108 U/L (45-117)
[2017-07-08] MEDS ORDERED: SODIUM CHLORIDE 0.9% 1000ML 1,000 ML IV STA (23:40)
[2017-07-08] MEDS ORDERED: CEFTRIAXONE SOD INJ 1 GM ADDVIAL IV STA (23:40)
[2017-07-08] MEDS ORDERED: POTASSIUM CHLORIDE 10 MEQ / 100ML WTR IV STA (23:40)
[2017-07-08] MEDS ORDERED: SODIUM CHLORIDE 0.9% 500ML 500 ML IV STA (23:40)
[2017-07-09] VITALS (8 sets, daily range): BP systolic 142–178; BP diastolic 73–84; PULSE 73–80; TEMP 36.4–37.2; O2SAT 96–100; Ht 165.1 cm; Wt 69.7 kg
[2017-07-09] MEDS ORDERED: ALUMINUM/MAGNESIUM/SIMETH (MAALOX MAX) 30 ML UDC PO PRN (00:30)
[2017-07-09] MEDS ORDERED: ONDANSETRON INJ 2 MG/ML 2 ML VIAL IV PRN (00:30)
[2017-07-09] MEDS ORDERED: HydrALAZINE HCL 20 MG/ML VIAL IV. PRN (00:30)
[2017-07-09] MEDS ORDERED: ACETAMINOPHEN 325 MG TAB PO PRN (00:30)
[2017-07-09] MEDS ORDERED: MAGNESIUM HYDROXIDE SUSP 30 ML UDC PO PRN (00:30)
[2017-07-09] MEDS ORDERED: POLYETHYLENE (MIRALAX) 17 GM PACK PO PRN (00:30)
--- NOTE | 2017-07-09 01:02 | History and Physical ---
History & Physical Date & Time of Service: Jul 09, 2017 at 00:41 Chief Complaint: Anxiety/Vomit Primary Care Physician: RV. Newby MD History of Present Illness Source: patient 77 y/o F Hx Alzheimer's dementia, HTN, HPL, HypoNa, DM - diet controlled, Anxiety//depression. Pt apparently had called EMS 3 separate times today because she was "not feeling well". She had refused transport to the hospital the first 2 times she called. She is a poor histroian and currently cannot recall any specifics as to why she had called EMS. She denies CP, SOB, N/V/D, dysuria or fevers. Initial labs reveal a marginally + UA, hypokalemia and leukocytosis. The pt was last admitted 05/28 following a syncopal episode at [facility]. The has support from neighbors in the area, however, due to progressive cognitive decline, it is felt that she may be better off in a nursing facility at this point. This was discusses with her daughter who is her POA during a previous admission and this evening. The pt had refused placement and home health services in May and was discharged home. Her daughter resides in [place]. She has a cousin here who helps manage her affairs. Past Medical/Surgical History 1) HTN 2) Dementia 3) HPL 4) DM 2 5) Chronic hyponatremia 6) Anxiety/Depression Family History FH: diabetes mellitus FH: heart disease FH: hypertension Social History Smoking Status: Never Smoker Drug Use: none Marital Status: Housing status: lives alone Occupational Status: retired Immunizations History of Influenza Vaccine: Unknown History of Tetanus Vaccine?: Unknown History of Pneumococcal: Unknown History of Hepatitis B Vaccine: Unknown Multi-Drug Resistant Organisms History of MDRO: No Allergies Coded Allergies: Diazepam (Verified Allergy, Unknown, LISTED BY MD ADVERSE RX, 07/08/17) Meperidine (Verified Allergy, Unknown, 07/08/17) Home Medications Scheduled Diltiazem Hcl Extended Release (Taztia Xt), 300 MG PO HS Lisinopril/Hctz (Zestoretic 20MG/25MG), 1 TAB PO DAILY Sertraline (Zoloft), 25 MG PO DAILY Simvastatin (Zocor), 40 MG PO QPM Review of Systems Cannot obtain a reliable history as she does not recall why she called EMS. ROS is negative as per HPI Physical Exam Vital Signs Date Time Temp Pulse Resp B/P (MAP) Pulse Ox O2 Delivery O2 Flow Rate FiO2 07/09/17 00:38 71 18 157/72 99 Room Air 07/08/17 23:17 73 20 168/77 98 Room Air 07/08/17 21:14 36.4 66 20 170/74 99 Room Air General Appearance: + pertinent finding (Irritable elderly female although she does have a sense of humor - she is in no distress and is oriented to person and generally to place) Head: normocephalic Eyes: normal inspection ENT: normal ENT inspection, pharynx normal Neck: supple, no JVD Respiratory/Chest: chest non-tender, lungs clear, normal breath sounds Cardiovascular: regular rate, rhythm, no edema, no gallop Abdomen/GI: normal bowel sounds, non tender, soft Back: normal inspection, no CVA tenderness Extremities/Musculoskelatal: normal inspection, no calf tenderness, normal capillary refill Neurologic/Psych: labor custodian II-XII nml as tested, no motor/sensory deficits, alert, + depressed affect Skin: normal color, warm/dry Diagnostics Laboratory Results Results Past 24 Hours Test 07/08/17 22:20 07/08/17 22:40 Range/Units White Blood Count 14.97 4.8-10.8 K/uL Red Blood Count 3.65 4.2-5.4 M/uL Hemoglobin 12.5 12.0-16.0 g/dL Hematocrit 33.8 37-47 % Mean Corpuscular Volume 92.6 80-100 fL Mean Corpuscular Hemoglobin 34.2 25-34 pg Mean Corpuscular Hemoglobin Concent 37.0 32-36 g/dl Platelet Count 308 130-400 K/uL Mean Platelet Volume 9.2 7.4-10.4 fL Neutrophils (%) (Auto) 86.7 % Lymphocytes (%) (Auto) 7.1 % Monocytes (%) (Auto) 5.5 % Eosinophils (%) (Auto) 0.1 % Basophils (%) (Auto) 0.1 % Neutrophils # (Auto) 12.96 1.4-6.5 K/uL Lymphocytes # (Auto) 1.07 1.2-3.4 K/uL Monocytes # (Auto) 0.83 0.11-0.59 K/uL Eosinophils # (Auto) 0.02 0-0.5 K/uL Basophils # (Auto) 0.02 0-0.2 K/uL RDW Standard Deviation 41.6 36.4-46.3 fL RDW Coefficient of Variation 12.1 11.5-14.5 % Immature Granulocyte % (Auto) 0.5 % Immature Granulocyte # (Auto) 0.07 0.00-0.02 K/uL Sodium Level 134 136-145 mmol/L Potassium Level 3.1 3.5-5.1 mmol/L Chloride Level 98 98-107 mmol/L Carbon Dioxide Level 24 21-32 mmol/L Anion Gap 12.0 3-11 mmol/L Blood Urea Nitrogen 25 7-18 mg/dl Creatinine 1.10 0.60-1.20 mg/dl Estimated GFR () 56.1 Estimated GFR (Non- 48.4 BUN/Creatinine Ratio 22.4 10-20 Random Glucose 203 70-99 mg/dl Calcium Level 9.2 8.5-10.1 mg/dl Total Bilirubin 0.3 0.2-1 mg/dl Aspartate Amino Transf (AST/SGOT) 18 15-37 U/L Alanine Aminotransferase (ALT/SGPT) 22 12-78 U/L Alkaline Phosphatase 108 45-117 U/L Total Protein 6.9 6.4-8.2 gm/dl Albumin 3.9 3.4-5.0 gm/dl Globulin 3.0 2.5-4.0 gm/dl Albumin/Globulin Ratio 1.3 0.9-2 Thyroid Stimulating Hormone (TSH) 2.860 0.300-4.500 uIu/ml Salicylates Level < 1.7 2.8-20 mg/dl Acetaminophen Level < 2 10-30 ug/ml Urine Color YELLOW Urine Appearance CLEAR CLEAR Urine pH 6.0 4.5-7.5 Urine Specific Virgin 1.020 1.000-1.030 Urine Protein NEG NEG Urine Glucose (UA) TRACE NEG Urine Ketones 1+ NEG Urine Occult Blood NEG NEG Urine Nitrite NEG NEG Urine Bilirubin NEG NEG Urine Urobilinogen NEG NEG Urine Leukocyte Esterase MODERATE NEG Urine WBC (Auto) 10-30 0-5 /hpf Urine RBC (Auto) 0-4 0-4 /hpf Urine Hyaline Casts (Auto) 1-5 0-5 /lpf Urine Epithelial Cells (Auto) >30 0-5 /lpf Urine Bacteria (Auto) NEG NEG Urine Opiates Screen NEG NEG Urine Methadone, Qualitative NEG NEG Urine Barbiturates NEG NEG Urine Phencyclidine (PCP) Level NEG NEG Ur Amphetamine/Methamphetamine NEG NEG MDMA (Ecstasy) Screen NEG NEG Urine Benzodiazepines Screen NEG NEG Urine Cocaine Metabolite NEG NEG Urine Marijuana (THC) NEG NEG Impression Assessment and Plan 77 y/o F Hx Alzheimer's dementia, HTN, HPL, HypoNa, DM - diet controlled, Anxiety//depression. Pt apparently had called EMS 3 separate times today because she was "not feeling well". She had refused transport to the hospital the first 2 times she called. She is a poor histroian and currently cannot recall any specifics as to why she had called EMS. She denies CP, SOB, N/V/D, dysuria or fevers. Initial labs reveal a marginally + UA, hypokalemia and leukocytosis. 1) "feeling unwell" - although her UA is basically equivocal, she does have leukocytosis and may be confused above baseline - she will be treated with Ceftriaxone and IVF. 2) DM - this is said to be diet controlled, however, her glu is markedly elevated so that we will place her on a SS and check an AM 1C 3) HTN - can cont Lisin/HCTZ, Diltiazem 4) Hypokalemia - replaced 5) Anxiety/depression - cont Sertraline 6) Dementia - as mentioned, case management shoulld be consulted to discuss placement with family as it is unlikely that the pt is safe and can properly comply with any medications Full code - Heparin prophylaxis Total time for this admit including review of labs, meds, imaging - discussion with pt and ER attending - 35 min Level of Care Med/Surg Resuscitation Status FULL RESUSCITATION VTE Prophylaxis VTE Risk Assessment Done? Y/N: Yes Risk Level: Moderate Given or contraindicated: Unfractionated heparin SQ
[2017-07-09] MEDS ORDERED: IV FLUIDS COMPLETED PRN (01:15)
[2017-07-09] MEDS ORDERED: MAGNESIUM SULFATE 1GM / D5W 1 GM in PREMIXED IN D5W 100 ML IV STA (01:22)
[2017-07-09] MEDS ORDERED: POTASSIUM CHLORIDE 10 MEQ TABCR PO ONE (01:30)
[2017-07-09] MEDS ORDERED: NSS + 20MEQ KCL 1000ML 1,000 ML IV SCH (01:30)
[2017-07-09] MEDS ORDERED: GLUCAGON FOR INJ 1 MG VIAL SQ PRN (02:45)
[2017-07-09] MEDS ORDERED: DEXTROSE 50% 50 ML SYR IV PRN (02:45)
[2017-07-09] MEDS ORDERED: GLUCOSE 40% GEL 15 GM TUBE PO PRN (02:45)
[2017-07-09] MEDS ORDERED: GLUCOSE 10 TABS/TUBE PO PRN (02:45)
[2017-07-09 07:11] LABS: MEAN CELL VOLUME 92.7 fL (80-100); MEAN CORPUSCULAR HEMOGLOBIN 33.1 pg (25-34); MEAN CORPUSCULAR HGB CONC 35.8 g/dl (32-36); MEAN PLATELET VOLUME 9.1 fL (7.4-10.4); PLATELET COUNT 301 K/uL (130-400); RED BLOOD COUNT 3.56 M/uL (4.2-5.4); WHITE BLOOD COUNT 8.91 K/uL (4.8-10.8)
[2017-07-09 07:19] LABS: INR 0.9 (0.9-1.1)
[2017-07-09] MEDS: LISINOPRIL/HCTZ 20/25MG TAB PO SCH (07:41)
[2017-07-09 07:48] LABS: BUN/CREATININE RATIO 21.8 (10-20); CALCIUM 8.7 mg/dl (8.5-10.1); CREATININE 0.79 mg/dl (0.60-1.20); MAGNESIUM 2.4 mg/dl (1.8-2.4); POTASSIUM 3.7 mmol/L (3.5-5.1)
[2017-07-09] MEDS: INSULIN ASPART 100 UNITS/ML 3 ML PEN SC SCH ×4 (08:37→20:18)
[2017-07-09] MEDS: HEPARIN SOD 5000 UNIT/0.5 ML CARP SQ SCH ×2 (08:42→20:00)
[2017-07-09] MEDS ORDERED: SERTRALINE HCL 50 MG TAB PO SCH (09:00)
[2017-07-09] MEDS ORDERED: SODIUM CHLORIDE 0.9% 500ML 500 ML IV SCH (13:30)
[2017-07-09] MEDS ORDERED: SERTRALINE HCL 50 MG TAB PO ONE (14:00)
[2017-07-09] MEDS: DICLOFENAC SOD 1% GEL 100 GM TUBE EXT SCH ×3 (14:39→20:18)
[2017-07-09 15:00] LABS: LYME DISEASE AB IGG NEG (NEG); LYME DISEASE AB IGM NEG (NEG)
[2017-07-09] MEDS: CHOLECALCIFEROL 1000 INTER.UNIT TAB PO SCH (17:30)
[2017-07-09] MEDS: CEFTRIAXONE SOD INJ 1 GM in DEXTROSE 5% ADD-VANTAGE 50ML 50 ML IV SCH (20:13)
[2017-07-09] MEDS: DILTIAZEM HCL 120 MG ER CAP PO SCH (20:17)
[2017-07-09] MEDS: DILTIAZEM HCL 180 MG ER CAP PO SCH (20:18)
[2017-07-09] MEDS: SIMVASTATIN 40 MG TAB PO SCH (20:19)
--- NOTE | 2017-07-09 20:26 | Progress Note ---
Subjective Date of Service: Jul 09, 2017. Subjective Pt evaluation today including: conversation w/ patient, physical exam, chart review, lab review, review of inpatient medication list Pain: denies all sites of pain except slight headache PO Intake: poor - has lost weight recently Voiding: no voiding problems Patient states "I just don't feel well." She brings up several times that her about 1 year ago and immediately starts to cry. She will then shift back to talking about her illness, then goes back to talking about her . She admits to poor sleep for several months, with frequent night-time awakening. Admits to depression and loss of interest in activities. When asked why she didn't feel well she couldn't localize any specific symptoms. [place] and [place] land but can't recall tick bites. Problem List Medical Problems: (1) Chronic hyponatremia Status: Acute (2) Dementia Status: Acute (3) Hyponatremia Status: Acute (4) Left ankle sprain Status: Acute (5) Moderate mood disorder Status: Acute (6) Mood disorder Status: Acute (7) Sinus bradycardia Status: Acute (8) Syncope Status: Acute (9) Syncope Status: Acute (10) UTI (urinary tract infection) Status: Acute (11) Vomiting Status: Acute Review of Systems Constitutional: + weight loss, + fatigue, No fever, No chills Respiratory: No cough, No shortness of breath Cardiac: No chest pain Abdomen: No pain, No nausea, No vomiting, No diarrhea Female : No dysuria Neurologic: + memory loss Psychiatric: + depression symptoms, + insomnia Skin: No rash Objective Vital Signs Date Time Temp Pulse Resp B/P (MAP) Pulse Ox O2 Delivery O2 Flow Rate FiO2 07/09/17 16:20 Room Air 07/09/17 15:23 36.8 75 18 168/75 (106) 96 Room Air 07/09/17 14:09 36.8 73 18 142/84 (103) 97 Room Air 07/09/17 10:00 36.5 80 18 169/73 (105) 97 Room Air 07/09/17 08:43 36.7 73 20 178/81 (113) 100 Room Air 07/09/17 08:09 37.2 73 16 169/80 (109) 98 Room Air 07/09/17 08:00 100 Room Air 07/09/17 01:18 36.4 77 16 165/73 96 Room Air 07/09/17 00:38 71 18 157/72 99 Room Air 07/08/17 23:17 73 20 168/77 98 Room Air 07/08/17 21:14 36.4 66 20 170/74 99 Room Air Physical Exam General Appearance: no apparent distress, + pertinent finding (depressed) ENT: pharynx normal Neck: no JVD Respiratory/Chest: lungs clear, no respiratory distress, no accessory muscle use Cardiovascular: regular rate, rhythm, no gallop, + systolic murmur (2/6 RUSB w / radiation to carotids) Abdomen: normal bowel sounds, non tender, soft, no organomegaly Extremities: no pedal edema Neurologic/Psychiatric: no motor/sensory deficits (no proximal muscle weakness) , alert, + depressed affect Skin: no rash Laboratory Results Last 24 Hours Test 07/08/17 22:20 07/08/17 22:40 07/09/17 06:36 07/09/17 07:51 White Blood Count 14.97 K/uL 8.91 K/uL Red Blood Count 3.65 M/uL 3.56 M/uL Hemoglobin 12.5 g/dL 11.8 g/dL Hematocrit 33.8 % 33.0 % Mean Corpuscular Volume 92.6 fL 92.7 fL Mean Corpuscular Hemoglobin 34.2 pg 33.1 pg Mean Corpuscular Hemoglobin Concent 37.0 g/dl 35.8 g/dl Platelet Count 308 K/uL 301 K/uL Mean Platelet Volume 9.2 fL 9.1 fL Neutrophils (%) (Auto) 86.7 % Lymphocytes (%) (Auto) 7.1 % Monocytes (%) (Auto) 5.5 % Eosinophils (%) (Auto) 0.1 % Basophils (%) (Auto) 0.1 % Neutrophils # (Auto) 12.96 K/uL Lymphocytes # (Auto) 1.07 K/uL Monocytes # (Auto) 0.83 K/uL Eosinophils # (Auto) 0.02 K/uL Basophils # (Auto) 0.02 K/uL RDW Standard Deviation 41.6 fL 41.2 fL RDW Coefficient of Variation 12.1 % 12.1 % Immature Granulocyte % (Auto) 0.5 % Immature Granulocyte # (Auto) 0.07 K/uL Sodium Level 134 mmol/L 133 mmol/L Potassium Level 3.1 mmol/L 3.7 mmol/L Chloride Level 98 mmol/L 100 mmol/L Carbon Dioxide Level 24 mmol/L 25 mmol/L Anion Gap 12.0 mmol/L 8.0 mmol/L Blood Urea Nitrogen 25 mg/dl 17 mg/dl Creatinine 1.10 mg/dl 0.79 mg/dl Estimated GFR () 56.1 83.7 Estimated GFR (Non- 48.4 72.2 BUN/Creatinine Ratio 22.4 21.8 Random Glucose 203 mg/dl 132 mg/dl Calcium Level 9.2 mg/dl 8.7 mg/dl Total Bilirubin 0.3 mg/dl Aspartate Amino Transf (AST/SGOT) 18 U/L Alanine Aminotransferase (ALT/SGPT) 22 U/L Alkaline Phosphatase 108 U/L Total Protein 6.9 gm/dl Albumin 3.9 gm/dl Globulin 3.0 gm/dl Albumin/Globulin Ratio 1.3 Thyroid Stimulating Hormone (TSH) 2.860 uIu/ml Salicylates Level < 1.7 mg/dl Acetaminophen Level < 2 ug/ml Urine Color YELLOW Urine Appearance CLEAR Urine pH 6.0 Urine Specific Pearce 1.020 Urine Protein NEG Urine Glucose (UA) TRACE Urine Ketones 1+ Urine Occult Blood NEG Urine Nitrite NEG Urine Bilirubin NEG Urine Urobilinogen NEG Urine Leukocyte Esterase MODERATE Urine WBC (Auto) 10-30 /hpf Urine RBC (Auto) 0-4 /hpf Urine Hyaline Casts (Auto) 1-5 /lpf Urine Epithelial Cells (Auto) >30 /lpf Urine Bacteria (Auto) NEG Urine Opiates Screen NEG Urine Methadone, Qualitative NEG Urine Barbiturates NEG Urine Phencyclidine (PCP) Level NEG Ur Amphetamine/Methamphetamine NEG MDMA (Ecstasy) Screen NEG Urine Benzodiazepines Screen NEG Urine Cocaine Metabolite NEG Urine Marijuana (THC) NEG Prothrombin Time 10.0 SECONDS Prothromb Time International Ratio 0.9 Est Creatinine Clear Calc Drug Dose 58.4 ml/min Magnesium Level 2.4 mg/dl Bedside Glucose 146 mg/dl Test 07/09/17 11:43 07/09/17 13:31 07/09/17 16:25 Bedside Glucose 177 mg/dl 152 mg/dl Erythrocyte Sedimentation Rate 19 mm/hr 25-Hydroxy Vitamin D Total 24.7 ng/ml Lyme Disease IgG Antibody NEG Lyme Disease IgM Antibody NEG Assessment and Plan 77yo female - 1. depression, appears severe, possibly with associated memory loss/cognitive dysfunction - increase sertraline to 50mg at HS. Needs counseling. Consider psych consult. Apparently has seen neurology as outpatient for w/u of memory issues - will need to review those records. 2. insomnia - likely due to #1 - trazodone 25mg HS. 3. hyponatremia - due to HCTZ? But looking at EMR it appears chronic over the last year. Recheck BMP am. Could consider urine Na and osm but results may be skewed due to the HCTZ. 4. acute kidney injury - 2nd to volume depletion/HCTZ/poor oral intake - improved with IVF. Recheck BMP am. 5. hypokalemia - resolved. 6. fatigue, feeling "unwell", leukocytosis - u/a slightly dirty but urine cx not sent; will send now. Remains on rocephin and will continue for now. Check sed rate, lyme's, vitamin D to exclude other causes of fatigue. Recent TSH, B12 were normal. 7. HTN - uncontrolled - compliant with BP meds?? Restarted BP meds and follow for response. 8. ?early dementia vs pseudodementia (from depression) vs other - again need to treat her depression, investigate outpatient records, etc. Obtain information from family. 9. PT, OT evals. 10. DVT proph - heparin BID. In my clinical judgment this beneficiary meets acute admission criteria, established by [facility], that includes being hospitalized through two midnights. Change to full admission status. Continued [facility] stay due to: inadequate po fluid intake, ambulation difficulties , multiple IV medications needed Discharge planning: uncertain
[2017-07-09] MEDS: TRAZODONE HCL 50 MG TAB PO SCH (21:00)
[2017-07-10] VITALS: BP 164/76; PULSE 68; TEMP 36.9; O2SAT 100; O2SAT 94
[2017-07-10 06:04] LABS: ESTIMATED AVERAGE GLUCOSE 137 mg/dl; HA1C FLAG Normal (Normal)
[2017-07-10] MEDS: CHOLECALCIFEROL 1000 INTER.UNIT TAB PO SCH (07:21)
[2017-07-10] MEDS: SERTRALINE HCL 50 MG TAB PO SCH (07:21)
[2017-07-10] MEDS: LISINOPRIL/HCTZ 20/25MG TAB PO SCH (07:21)
[2017-07-10] MEDS: DICLOFENAC SOD 1% GEL 100 GM TUBE EXT SCH ×4 (07:25→20:35)
[2017-07-10] MEDS: HEPARIN SOD 5000 UNIT/0.5 ML CARP SQ SCH ×2 (07:25→20:00)
[2017-07-10 07:33] VITALS: BP 135/79; PULSE 64; TEMP 36.8; O2SAT 97
[2017-07-10 07:56] LABS: BUN/CREATININE RATIO 10.9 (10-20); CALCIUM 9.5 mg/dl (8.5-10.1); CREATININE 0.77 mg/dl (0.60-1.20)
[2017-07-10] MEDS: INSULIN ASPART 100 UNITS/ML 3 ML PEN SC SCH ×4 (08:30→20:39)
[2017-07-10 15:31] VITALS: BP 137/71; PULSE 63; TEMP 37.1; O2SAT 98
--- NOTE | 2017-07-10 15:31 | Hospitalist Progress Note ---
Hospitalist Progress Note Date of Service Jul 10, 2017. Subjective Pt evaluation today including: conversation w/ patient, physical exam, chart review, lab review, review of studies, review of inpatient medication list Patient seen and evaluated. Patient cannot give details of what brought her into the hospital. States "its just my nerves, they have been bad since I was 8 years old" States she has been upset because "people want me to do things I don't want to do" but wouldn't elaborate more. Per notes multiple family members want her placed in a home. She states she can take care of herself and wants to return home. She says she gets out and does things and goes on walks twice a day. She does not have her drivers license and feels that this is for the best because of her nerves She cries when talking about her husbands and expresses that she feels lonely because no one comes to visit her. She ultimately wants to return home She is actively involved with [facility]. She had work up by a neuropsychiatrist and neurology - Dx with Alzheimer/Vascular Dementia and possible has worsening of symptoms due to Depression Patient is known to me from previous admission. At that time I discussed with her cousin, Mr. Sanchez, and her daughter Luz Maria and they both agree she may need placement at that time. Daughter is POA but patient has not been considered incompetent. In my opinion, patient is actually less anxious and thoughts are more logical compared to seeing her on previous admission. She is less emotional talking about her and can have a conversation without jumping from topic to topic or repeating statements/questions like she did on previous admission. Outpatient records reviewed that she was continued on Zoloft and report compliance. Also started on Donepezil by Dr. Strickland. If she is being compliant with her medications it may have assisted in treating underlying depression however Alzheimer/Vascular Dementia still exists. Constitutional: No fever, No chills Respiratory: No cough, No shortness of breath Cardiovascular: No chest pain Abdomen: No pain, No nausea, No vomiting, No diarrhea, No constipation, No GI bleeding Musculoskeletal: No swelling, No calf pain Female : No dysuria, No urinary frequency Psychiatric: + anxiety (reports at baseline) Heme: No abnormal bleeding/bruising Skin: No rash Medications Current Inpatient Medications Medications (Trade) Dose Ordered Sig/Kecia Route Start Time Stop Time Status Last Admin Dose Admin HCTZ/Lisinopril (Prinzide 20-25MG Tab) 1 tab DAILY PO 07/09/17 09:00 08/08/17 08:59 07/10/17 07:21 1 TAB Simvastatin (Zocor Tab) 40 mg QPM PO 07/09/17 21:00 08/08/17 20:59 07/09/17 20:19 40 MG Diltiazem HCl (Dilacor Xr Cap) 120 mg HS PO 07/09/17 21:00 08/08/17 20:59 07/09/17 20:17 120 MG Acetaminophen (Tylenol Tab) 650 mg Q4H PRN PO 07/09/17 00:30 08/08/17 00:29 Al Hydrox/Mg Hydrox/Simethicone (Maalox Max Susp) 15 ml Q4H PRN PO 07/09/17 00:30 08/08/17 00:29 Magnesium Hydroxide (Milk Of Magnesia Susp) 30 ml Q6H PRN PO 07/09/17 00:30 08/08/17 00:29 Polyethylene (Miralax Powder Packet) 17 gm DAILY PRN PO 07/09/17 00:30 08/08/17 00:29 Ondansetron HCl (Zofran Inj) 4 mg Q6H PRN IV 07/09/17 00:30 08/08/17 00:29 Heparin Sodium (Porcine) (Heparin Sq 5000 Unit/0.5ml) 5,000 unit Q12H SQ 07/09/17 08:00 08/08/17 07:59 Ceftriaxone Sodium 1 gm/ Dextrose 50 ml @ 100 mls/hr Q24H IV 07/09/17 22:00 07/18/17 21:59 07/09/17 20:13 100 MLS/HR Hydralazine HCl (HydrALAZINE INJ) 5 mg Q8H PRN IV. 07/09/17 00:30 08/08/17 00:29 07/09/17 08:45 5 MG Miscellaneous (Iv Fluids Completed) 1 ea PRN PRN N/A 07/09/17 01:15 07/09/18 01:14 Insulin Aspart (novoLOG ASPART) SLIDING SCALE G... ACHS SC 07/09/17 06:30 08/08/17 06:29 Glucose (Glucose 40% Gel) 15-30 GRAMS 15 GRAMS... UD PRN PO 07/09/17 02:45 08/08/17 02:44 Glucose (Glucose Chew Tab) 4-8 Tablets 4 Tabl... UD PRN PO 07/09/17 02:45 08/08/17 02:44 Dextrose (Dextrose 50% 50ML Syringe) 25-50ML OF 50% DW IV FOR... UD PRN IV 07/09/17 02:45 08/08/17 02:44 Glucagon (Glucagon Inj) 1 mg UD PRN SQ 07/09/17 02:45 08/08/17 02:44 Diltiazem HCl (Dilacor Xr Cap) 180 mg HS PO 07/09/17 21:00 08/08/17 20:59 07/09/17 20:18 180 MG Sertraline HCl (Zoloft Tab) 50 mg DAILY PO 07/10/17 09:00 08/08/17 08:59 07/10/17 07:21 50 MG Diclofenac Sodium (Voltaren 1% Top Gel) 4 appln QID EXT 07/09/17 14:15 08/08/17 14:14 07/10/17 12:30 4 APPLN Cholecalciferol (Vitamin D Tab) 2,000 inter.unit QAM PO 07/09/17 17:00 08/08/17 16:59 07/10/17 07:21 2,000 INTER.UNIT Trazodone HCl (Desyrel Tab) 25 mg HS PO 07/09/17 21:00 08/08/17 20:59 Objective Vital Signs Date Time Temp Pulse Resp B/P (MAP) Pulse Ox O2 Delivery O2 Flow Rate FiO2 07/10/17 08:00 Room Air 07/10/17 07:33 36.8 64 18 135/79 (97) 97 Room Air 07/10/17 00:00 36.9 68 20 164/76 (105) 94 Room Air 07/10/17 00:00 100 Room Air 07/09/17 20:21 75 163/81 (108) 07/09/17 16:20 Room Air 07/09/17 15:23 36.8 75 18 168/75 (106) 96 Room Air Physical Exam General Appearance: WD/WN, no apparent distress Eyes: sclerae normal ENT: hearing grossly normal Neck: supple, no JVD, trachea midline Respiratory/Chest: lungs clear, normal breath sounds, no respiratory distress, no accessory muscle use Cardiovascular: regular rate, rhythm, no gallop, + systolic murmur Abdomen: normal bowel sounds, non tender, soft Extremities: no pedal edema, no calf tenderness Neurologic/Psychiatric: alert, oriented x 3 Skin: normal color, warm/dry Laboratory Results Last 24 Hours Test 07/09/17 16:25 07/09/17 20:17 07/09/17 23:00 07/10/17 07:09 Bedside Glucose 152 mg/dl 93 mg/dl Urine Osmolality 144 mOms/kg Urine Random Sodium 46 mEq/L Sodium Level 130 mmol/L Potassium Level 4.0 mmol/L Chloride Level 96 mmol/L Carbon Dioxide Level 28 mmol/L Anion Gap 6.0 mmol/L Blood Urea Nitrogen 8 mg/dl Creatinine 0.77 mg/dl Est Creatinine Clear Calc Drug Dose 60.0 ml/min Estimated GFR () 86.3 Estimated GFR (Non- 74.5 BUN/Creatinine Ratio 10.9 Random Glucose 129 mg/dl Osmolality 272 mOsm/kg Calcium Level 9.5 mg/dl Test 07/10/17 07:40 07/10/17 11:26 Bedside Glucose 128 mg/dl 103 mg/dl Assessment and Plan Depression/Anxiety with Associated Memory loss/Cognitive Dysfunction - 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 Strickland - [employer] reviewed - started Donepezil 5 mg HS -- Also evaluated by neuropsychiatrist - Dr. Lamar - suggesting Alzheimer/ Vascular Dementia Insomnia: - Trazodone 25 mg HS Chronic Hyponatremia: - May be medication induced but has been longstanding Feeling "Unwell": - Verbalizes no complaints today and no direct source of infection appreciated - UCx unremarkable - Ceftriaxone 1 g IV daily - did have leukocytosis but has since resolved - no urinary symptoms - Sed rate WNL, Lyme negative, Vit D low but not drastic, TSH and B12 WNL - Vit D 2000 IU daily HTN: Uncontrolled - Suspect medication non-compliance - Diltiazem 300 mg HS and HCTZ/Lisinopril 1 tab daily T2DM: - Patient was being monitored with diet management - A1c 6.4 - Currently utilizing SSI DVT Prophylaxis: Heparin 5000 units SC BID Disposition: - Will have psychiatry see her - will discuss with case management for further discussion with [facility] - patients mentation wax and wanes but doesn't necessarily mean she doesn't have capacity - appreciate assistance - PT/OT - no functional problem noted but OT recommending 24/ supervision Continued [facility] stay due to: multiple IV medications needed Discharge planning: uncertain
[2017-07-10 16:00] VITALS: O2SAT 98
[2017-07-10] MEDS: SIMVASTATIN 40 MG TAB PO SCH (20:37)
[2017-07-10] MEDS: TRAZODONE HCL 50 MG TAB PO SCH (20:46)
[2017-07-10] MEDS: DILTIAZEM HCL 180 MG ER CAP PO SCH (20:47)
[2017-07-10] MEDS: DILTIAZEM HCL 120 MG ER CAP PO SCH (20:47)
[2017-07-10] MEDS ORDERED: DONEPEZIL HCL 5 MG TAB PO SCH (21:00)
[2017-07-10] MEDS: CEFTRIAXONE SOD INJ 1 GM in DEXTROSE 5% ADD-VANTAGE 50ML 50 ML IV SCH (21:54)
[2017-07-11 00:20] VITALS: BP 160/80; PULSE 78; TEMP 36.9; O2SAT 96
[2017-07-11] MEDS: INSULIN ASPART 100 UNITS/ML 3 ML PEN SC SCH ×4 (07:46→20:11)
[2017-07-11] MEDS: HEPARIN SOD 5000 UNIT/0.5 ML CARP SQ SCH ×2 (07:46→20:00)
[2017-07-11] MEDS: DILTIAZEM HCL 120 MG ER CAP PO SCH (08:20)
[2017-07-11] MEDS: CHOLECALCIFEROL 1000 INTER.UNIT TAB PO SCH (08:20)
[2017-07-11] MEDS: LISINOPRIL/HCTZ 20/25MG TAB PO SCH (08:20)
[2017-07-11] MEDS: DONEPEZIL HCL 5 MG TAB PO SCH (08:21)
[2017-07-11] MEDS: DILTIAZEM HCL 180 MG ER CAP PO SCH (08:21)
[2017-07-11] MEDS: SERTRALINE HCL 50 MG TAB PO SCH (08:21)
[2017-07-11] MEDS: DICLOFENAC SOD 1% GEL 100 GM TUBE EXT SCH ×4 (08:22→21:00)
[2017-07-11 08:47] VITALS: BP 149/80; PULSE 69; TEMP 36.9; O2SAT 97
--- NOTE | 2017-07-11 13:10 | Psychiatric Consultation ---
Consultation Date of Consultation Jul 11, 2017. Identifying Data 77-year-old white female with a history of adjustment disorder with depressed mood, mixed Alzheimer's disease and vascular dementia, type 2 diabetes , and multiple other chronic medical conditions who was admitted after she called EMS for anxiety, nausea, and vomiting. She is admitted to the hospitalist service, and social work has made referrals for longterm placement. Psychiatry was consulted for capacity to refuse longterm placement. Chief Complaint "I don't know". History of Present Illness Patient was seen and assessed, records reviewed, and case discussed with BRIEN Gilbert. According to records, the patient had called EMS several times on the day of admission because she "was not feeling well," but the first 2 times refused to come to the emergency room. The emergency room doctor contacted her daughter, Farnaz, who is her power of trust and estates attorney, and she stated that the patient had dementia and they have been trying to place her in a facility but she had been refusing. Her daughter did not feel she was safe at home, and stated she had been reluctant to take her medications, and they were not sure if she was taking them. There was a question of UTI, and she was given antibiotics. By the time the admitting hospitalist saw her, the patient could not remember why all EMS in the first place. She endorsed depressive symptoms, was tearful at times, and Dr. Pablo increased her sertraline to 50 mg daily. Neurology (sees Dr. Strickland for dementia) and outpatient neuropsych testing records from Dr. Ac were reviewed. Dr. Ocampo saw her in February of this year on referral from her PCP for progressive memory disturbance and safety related concerns. The patient came to the appointment with her cousin, Rashel, who had been helping her with transportation and financial issues. He indicated that she lives alone, has few supports, and that [facility] office of aging was involved, although she had refused their services. Her recent MMSE was 27/ 30. The patient herself denied any memory or cognitive problems, any difficulty with ADLs, but was noted to be a poor historian. She stated that her bung driver's license had been revoked, but could not explain why. She was not able to name her medications or described how she took them. She admitted to depressed mood and decreased appetite, but denied other neurovegetative symptoms , and scored fairly low (2/30, which is within normal) on the geriatric depression scale. There was no evidence of psychotic symptoms or suicidality. Her cognitive testing results indicated near global decline, with clear evidence of decreased from her premorbid level of function. The pattern suggested a major neurocognitive disorder, most consistent with mixed Alzheimer' s disease and vascular dementia, of moderate severity. Symptoms of depression and anxiety were observed, but were characteristic of neurodegenerative illness , with an otherwise euthymic affect. Recommendations were that she could not be expected to manage instrumental activities and risks successfully, and would require assistance with medical decision making, medication scheduling, management of finances,, etc. It was recommended that she not drive, and her ability to live safely without support in the home was questionable, given problems with memory and reasoning evident during the assessment. Near daily involvement of home nursing services or a more supportive setting was recommended. The primary team has reviewed the recommendations for placement in a facility with her, she has repeatedly stated that she wants to return home. Recommendations for longterm placement were also revered during her admission in May, as both her cousin and her daughter felt she needed placement in a facility, but the patient also refused at that time. She was seen by the psychiatric liaison nurse last evening, and was angry that psychiatry consult had been placed. She stated that she was going home, and "the only way I'm leaving my home is when they carry me out of there." She scored a 0 out of 5 on the mini cog, and winifred a clock with numbers 1 through 21 , and no hands. On my assessment, she states that no one has reviewed any recommendations with her about going to a longterm, and that she plans to return home. She denies that anyone has ever suggested that she might need more help at home or that she be placed in a facility. She states she lives alone in a [place], and denies having any in-home help. She later states that she "might" have home nursing, but is not sure. She states that her pills, in a pillbox marked "morning" and "night," and that is how she takes them, but does not know who fills the pillbox, what the pills are, or what they are for. With repeat questioning, she states that some family members "might have" expressed concerns about her ability to live alone, stating that her "stupid cousin" has been worried about her, but cannot state what the concerns were. She adamantly denies that she has experienced any problems living alone, stating that she has lived by herself and then "everything for myself" since her a year ago, including managing her own finances, cleaning her home, and preparing her food. She states that she does not drive, and her cousin or friend take her to appointments. She says that "everyone says I have problems with it (living at home alone), but I don't think so." She admits to chronic anxiety, which she refers to as "my nerves," and to lower mood after her one year ago, but states mood is improved now. She denies thoughts of harming herself, thoughts of harming others, symptoms of ginny, and psychosis. She does not know what medical conditions she has been diagnosed with. She is not able to reiterate the recommendations for placement in a facility, explain her reasoning in refusing those recommendations, or review the risks of refusing this recommendations. She was also recently admitted in May after a syncopal episode, at which point she was seen by psychiatry in consultation for depression, and was continued on sertraline 25 mg daily, which had been prescribed by her PCP. Past Psychiatric History Current OP Treatment: no current treatment Prior OP Treatment: no prior treatment Prior Psych Hospitalizations: none Access to a Gun: No Suicide Attempts: No Past Medical/Surgical History (1) Dementia (2) Hypercholesterolemia Allergies Allergies: Coded Allergies: Diazepam (Verified Allergy, Unknown, LISTED BY MD [facility] RX, 07/08/17) Meperidine (Verified Allergy, Unknown, 07/08/17) Home Medications Scheduled Diltiazem Hcl Extended Release (Taztia Xt), 300 MG PO HS Lisinopril/Hctz (Zestoretic 20MG/25MG), 1 TAB PO DAILY Sertraline (Zoloft), 25 MG PO DAILY Simvastatin (Zocor), 40 MG PO QPM Family History FH: diabetes mellitus FH: heart disease FH: hypertension Adopted and does not know family history. Alcohol Use Alcohol Use In Past 12 Months: No Smoking Use Smoking Status: Never Smoker Substance History Denies ever abusing drugs. Personal History Lives in[place] alone in [place] Relationship History: Children: Patient has 3 children. Daughter who lives in [place] is QUE. Legal History: none Psychological Trauma History: Denies Hx Traumatic Event Review of Systems 10 systems reviewed; negative except as stated above. Examination Vital Signs Vital Signs Past 12 Hours Date Time Temp Pulse Resp B/P (MAP) Pulse Ox O2 Delivery O2 Flow Rate FiO2 07/11/17 08:47 36.9 69 17 149/80 (103) 97 Room Air 07/11/17 08:15 Room Air Laboratory Results Last 24 Hours Test 07/10/17 16:16 07/10/17 20:25 07/11/17 07:25 07/11/17 11:38 Bedside Glucose 116 mg/dl 118 mg/dl 116 mg/dl 99 mg/dl Mental Examination During interview pt is: alert and oriented (06/01 (did not know the day, and said the town was [place])) Appearance: appropriately dressed, appropriately groomed, appeared stated age Eye contact is: fair Motor behavior is: no abnormal motor movements Speech: normal in rate, rhythm & volume Affect: euthymic Mood is: other ("okay") Thought process: goal directed Thought content: reality based without delusions Suicidal thought are: denied Homicidal thoughts are: denied Hallucinations: denies auditory, denies visual Intelligence estimated to be: average Insight: impaired Judgement: impaired Impression / Recommendations Impression 77-year-old white female who lives alone in [facility], has a history of depression and anxiety treated by her PCP with sertraline, and recently diagnosed dementia, mixed Alzheimer's type and vascular. She was admitted after she called EMS repeatedly for not feeling well, and family expressed concerns about her ability to care for herself safely at home alone. She was also hospitalized here last month, and at that time the recommendation was for placement in a facility, but she refused, wanting to return to her home. The office of aging has been involved, and she has had neuropsych testing which indicated a need for assistance in medical decision making, finances, and other complex cognitive processes. The primary team has increased sertraline to target mood and anxiety symptoms, and she is being followed by neurology for her dementia. At this time, she lacks the capacity to refuse the recommendations for longterm placement, as although she is able to express a choice to remain at home, she is not able to reiterate the treatment recommendations, the risks of refusing the treatment, or rationally manipulate information in explaining her reasoning. The primary team should assign an alternate decision maker for placement issues.
[2017-07-11] MEDS ORDERED: VTMD1000 PO (14:09)
[2017-07-11] MEDS ORDERED: ARC5 PO (14:09)
[2017-07-11] MEDS ORDERED: ZLF50 PO (14:09)
[2017-07-11] MEDS ORDERED: DSY50 PO (14:09)
--- NOTE | 2017-07-11 14:15 | Discharge Instructions ---
Discharge Instructions Date of Service Jul 11, 2017. Admission Reason for Admission: Altered Mental Status, Uti Discharge Discharge Diagnosis / Problem: Alzheimer's dementia, UTI Discharge Goals Goal(s): Improve function, Specific goals (placement at SNF for safety) Activity Recommendations Activity Level: Up Ad Magaly Lifting Limitations: none Exercise/Sports Limitations: as tolerated Shower/Bathe: no limitations . Additional Information Patient informed of condition: Yes Advance Directives: Yes DNR: No Level of Care: Skilled Communicable Disease: No Prognosis: Stable Oxygen at (LPM): no Beach Catheter: No Instructions / Follow-Up Instructions / Follow-Up Medications: - ZOLOFT: dose increased to 50mg daily during admission for depression and anxiety symptoms - TRAZODONE: added at 25mg for sleep aide - ARICEPT: 5mg daily for mild Alzheimer's symptoms - VITAMIN D: 2000 IU daily UTI: adequate treated with Rocephin while admitted Alzheimer's dementia: patient lacks capacity to make medical decisions regarding her safety, cannot manage finances, defer decisions to daughter who is POA patient currently living home alone, she requires 24/7 care for her safety FOLLOW UP - physician at [facility] this week Current Hospital Diet Patient's current hospital diet: AHA Diet (Heart Healthy) Discharge Diet Recommended Diet: AHA Diet (Heart Healthy) Pending Studies Studies pending at discharge: no Physician Orders On Transfer POLST Discussion: without POLST completion Laboratory Results Hemoglobin A1c Test 07/09/17 06:36 Range/Units Estimated Average Glucose 137 mg/dl Hemoglobin A1c 6.4 H 4.5-5.6 % Medical Emergencies . Who to Call and When: Medical Emergencies: If at any time you feel your situation is an emergency, please call 911 immediately. . Non-Emergent Contact Non-Emergency issues call your: Primary Care Provider Call Non-Emergent contact if: you have any medication questions . . "Provider Documentation" section prepared by Aurelio Caceres. . Core Measure Problem Core Measures: None [place] Drug Monitoring Program Search Results: no issues identified
[2017-07-11 15:28] VITALS: BP 148/75; PULSE 71; TEMP 36.8; O2SAT 95
--- NOTE | 2017-07-11 15:56 | Progress Note ---
Subjective Date of Service: Jul 11, 2017. Subjective Pt evaluation today including: conversation w/ patient, physical exam, conversation w/ wig sales consultant, review of inpatient medication list Pain: no pain PO Intake: adequate Voiding: no voiding problems again, discussed recommendations with patient for SNF, she wanted to go home appreciate psychiatry consultation, patient lacks capacity to make this difficult medical decision, cannot explain reasons for going to [facility] defer to daughter who is POA, will place in [facility] Problem List Medical Problems: (1) Chronic hyponatremia Status: Acute (2) Dementia Status: Acute (3) Hyponatremia Status: Acute (4) Left ankle sprain Status: Acute (5) Moderate mood disorder Status: Acute (6) Mood disorder Status: Acute (7) Sinus bradycardia Status: Acute (8) Syncope Status: Acute (9) Syncope Status: Acute (10) UTI (urinary tract infection) Status: Acute (11) Vomiting Status: Acute Review of Systems Neurologic: + memory loss All Other Systems: Reviewed and Negative Medications Current Inpatient Medications Medications (Trade) Dose Ordered Sig/Kecia Route Start Time Stop Time Status Last Admin Dose Admin HCTZ/Lisinopril (Prinzide 20-25MG Tab) 1 tab DAILY PO 07/09/17 09:00 08/08/17 08:59 07/11/17 08:20 1 TAB Simvastatin (Zocor Tab) 40 mg QPM PO 07/09/17 21:00 08/08/17 20:59 07/10/17 20:37 40 MG Acetaminophen (Tylenol Tab) 650 mg Q4H PRN PO 07/09/17 00:30 08/08/17 00:29 Al Hydrox/Mg Hydrox/Simethicone (Maalox Max Susp) 15 ml Q4H PRN PO 07/09/17 00:30 08/08/17 00:29 Magnesium Hydroxide (Milk Of Magnesia Susp) 30 ml Q6H PRN PO 07/09/17 00:30 08/08/17 00:29 Polyethylene (Miralax Powder Packet) 17 gm DAILY PRN PO 07/09/17 00:30 08/08/17 00:29 Ondansetron HCl (Zofran Inj) 4 mg Q6H PRN IV 07/09/17 00:30 08/08/17 00:29 Heparin Sodium (Porcine) (Heparin Sq 5000 Unit/0.5ml) 5,000 unit Q12H SQ 07/09/17 08:00 08/08/17 07:59 Ceftriaxone Sodium 1 gm/ Dextrose 50 ml @ 100 mls/hr Q24H IV 07/09/17 22:00 07/18/17 21:59 07/10/17 21:54 100 MLS/HR Hydralazine HCl (HydrALAZINE INJ) 5 mg Q8H PRN IV. 07/09/17 00:30 08/08/17 00:29 07/09/17 08:45 5 MG Miscellaneous (Iv Fluids Completed) 1 ea PRN PRN N/A 07/09/17 01:15 07/09/18 01:14 Insulin Aspart (novoLOG ASPART) SLIDING SCALE G... ACHS SC 07/09/17 06:30 08/08/17 06:29 Glucose (Glucose 40% Gel) 15-30 GRAMS 15 GRAMS... UD PRN PO 07/09/17 02:45 08/08/17 02:44 Glucose (Glucose Chew Tab) 4-8 Tablets 4 Tabl... UD PRN PO 07/09/17 02:45 08/08/17 02:44 Dextrose (Dextrose 50% 50ML Syringe) 25-50ML OF 50% DW IV FOR... UD PRN IV 07/09/17 02:45 08/08/17 02:44 Glucagon (Glucagon Inj) 1 mg UD PRN SQ 07/09/17 02:45 08/08/17 02:44 Sertraline HCl (Zoloft Tab) 50 mg DAILY PO 07/10/17 09:00 08/08/17 08:59 07/11/17 08:21 50 MG Diclofenac Sodium (Voltaren 1% Top Gel) 4 appln QID EXT 07/09/17 14:15 08/08/17 14:14 07/11/17 13:36 4 APPLN Cholecalciferol (Vitamin D Tab) 2,000 inter.unit QAM PO 07/09/17 17:00 08/08/17 16:59 07/10/17 07:21 2,000 INTER.UNIT Trazodone HCl (Desyrel Tab) 25 mg HS PO 07/09/17 21:00 08/08/17 20:59 Donepezil HCl (Aricept Tab) 5 mg QAM PO 07/11/17 09:00 08/10/17 08:59 07/11/17 08:21 5 MG Diltiazem HCl (Dilacor Xr Cap) 120 mg QAM PO 07/11/17 09:00 08/10/17 08:59 07/11/17 08:20 120 MG Diltiazem HCl (Dilacor Xr Cap) 180 mg QAM PO 07/11/17 09:00 08/10/17 08:59 07/11/17 08:21 180 MG Objective Vital Signs Date Time Temp Pulse Resp B/P (MAP) Pulse Ox O2 Delivery O2 Flow Rate FiO2 07/11/17 15:28 36.8 71 18 148/75 (99) 95 Room Air 07/11/17 08:47 36.9 69 17 149/80 (103) 97 Room Air 07/11/17 08:15 Room Air 07/11/17 00:20 36.9 78 20 160/80 (106) 96 Room Air 07/10/17 23:20 Room Air 07/10/17 16:00 98 Room Air Physical Exam General Appearance: WD/WN, no apparent distress Eyes: normal inspection, EOMI, sclerae normal ENT: normal ENT inspection, hearing grossly normal, pharynx normal Neck: supple, no adenopathy, no JVD, trachea midline Respiratory/Chest: chest non-tender, lungs clear, normal breath sounds, no respiratory distress, no accessory muscle use Cardiovascular: regular rate, rhythm, no edema, no gallop, no JVD, no murmur Abdomen: normal bowel sounds, non tender, soft, no organomegaly Extremities: normal range of motion, non-tender, normal inspection, no pedal edema, no calf tenderness, pelvis stable Neurologic/Psychiatric: 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 nml as tested, no motor/sensory deficits, alert, normal mood/affect, oriented x 3 Skin: normal color, warm/dry, no rash Lymphatic: no adenopathy Laboratory Results Last 24 Hours Test 07/10/17 16:16 07/10/17 20:25 07/11/17 07:25 07/11/17 11:38 Bedside Glucose 116 mg/dl 118 mg/dl 116 mg/dl 99 mg/dl Assessment and Plan Depression/Anxiety with Associated Memory loss/Cognitive Dysfunction - Alzheimer/Vascular Dementia - Tolerating increased Sertraline at 50mg daily - but still early institution - will need to make sure of compliance - Will consult psychiatry - appreciate recommendations for further intervention -- lacks capacity to make difficult medical decisions, defer to daughter QUE , she would like patient placed in personal intermediate for her safety -- for [facility] tomorrow, d/w CM - Was evaluated by Dr. Strickland - [employer] reviewed - started Donepezil 5 mg HS Insomnia: - Trazodone 25 mg HS Chronic Hyponatremia: - May be medication induced but has been longstanding Feeling "Unwell": - Verbalizes no complaints today and no direct source of infection appreciated - UCx unremarkable - Ceftriaxone 1 g IV daily - did have leukocytosis but has since resolved - no urinary symptoms stop antibiotics on d/c - Sed rate WNL, Lyme negative, Vit D low but not drastic, TSH and B12 WNL - Vit D 2000 IU daily, continue on discharge HTN: Uncontrolled - Suspect medication non-compliance, should improve at personal care where she will be given medications - Diltiazem 300 mg HS and HCTZ/Lisinopril 1 tab daily T2DM: - Patient was being monitored with diet management - A1c 6.4 - Currently utilizing SSI DVT Prophylaxis: Heparin 5000 units SC BID Disposition: - for personal care tomorrow Continued [facility] stay due to: multiple IV medications needed Discharge planning: uncertain
[2017-07-11 16:00] VITALS: O2SAT 95
[2017-07-11] MEDS: SIMVASTATIN 40 MG TAB PO SCH (21:18)
[2017-07-11] MEDS: TRAZODONE HCL 50 MG TAB PO SCH (21:18)
[2017-07-11] MEDS: CEFTRIAXONE SOD INJ 1 GM in DEXTROSE 5% ADD-VANTAGE 50ML 50 ML IV SCH (21:19)
[2017-07-11 23:57] VITALS: BP 109/65; PULSE 53; TEMP 37.2; O2SAT 98
[2017-07-12] MEDS: INSULIN ASPART 100 UNITS/ML 3 ML PEN SC SCH ×2 (06:30→12:25)
[2017-07-12 06:38] LABS: HEMATOCRIT 32.3 % (37-47); MEAN CELL VOLUME 93.9 fL (80-100); MEAN CORPUSCULAR HEMOGLOBIN 33.4 pg (25-34); MEAN CORPUSCULAR HGB CONC 35.6 g/dl (32-36); PLATELET COUNT 297 K/uL (130-400); RED BLOOD COUNT 3.44 M/uL (4.2-5.4); WHITE BLOOD COUNT 9.67 K/uL (4.8-10.8)
[2017-07-12 08:00] VITALS: O2SAT 95
[2017-07-12] MEDS: SERTRALINE HCL 50 MG TAB PO SCH (08:00)
[2017-07-12] MEDS: HEPARIN SOD 5000 UNIT/0.5 ML CARP SQ SCH (08:00)
[2017-07-12] MEDS: DONEPEZIL HCL 5 MG TAB PO SCH (08:00)
[2017-07-12] MEDS: LISINOPRIL/HCTZ 20/25MG TAB PO SCH (08:01)
[2017-07-12] MEDS: CHOLECALCIFEROL 1000 INTER.UNIT TAB PO SCH (08:01)
[2017-07-12] MEDS: DILTIAZEM HCL 180 MG ER CAP PO SCH (08:02)
[2017-07-12] MEDS: DILTIAZEM HCL 120 MG ER CAP PO SCH (08:02)
[2017-07-12] MEDS: DICLOFENAC SOD 1% GEL 100 GM TUBE EXT SCH ×2 (08:03→12:27)
[2017-07-12 08:18] VITALS: BP 138/74; PULSE 72; TEMP 36.7; O2SAT 98
[2017-07-12 10:51] VITALS: BP 138/74; PULSE 72; TEMP 36.7; O2SAT 98
[2017-07-12] MEDS ORDERED: ZLF50 PO (11:00)
[2017-07-12] MEDS ORDERED: LISI-788 PO (11:00)
[2017-07-12] MEDS ORDERED: VTMD1000 PO (11:00)
[2017-07-12] MEDS ORDERED: DSY50 PO (11:00)
[2017-07-12] MEDS ORDERED: ARC5 PO (11:00)
[2017-07-12] MEDS ORDERED: DILT300C24 PO (11:00)
[2017-07-12] MEDS ORDERED: SIMV40TA4 PO (11:00)
--- NOTE | 2017-07-12 13:06 | Discharge Summary ---
Discharge Summary Date of Service Jul 12, 2017. Discharge Summary Admission Date: Jul 09, 2017 at 20:17 Discharge Date: Jul 12, 2017 Discharge Disposition: Personal care Principal Diagnosis: Alzheimers/Vascular Dementia and Depression/Anxiety Problems/Secondary Diagnoses: 1. HTN 2. T2DM (diet management) 3. Alzheimers Dementia 4. Vascular Dementia 5. Depression/Anxiety Immunizations: Have You Had Influenza Vaccine: Unknown History of Tetanus Vaccine?: Unknown History of Pneumococcal: Unknown History of Hepatitis B Vaccine: Unknown Consultations: 1. Psychiatry 2. PT/OT Medication Reconciliation New Medications: Cholecalciferol (Vitamin D3) 1,000 Inter.unit Tab 2000 INTER.UNIT PO QAM for 30 Days, #60 TAB Donepezil HCl (Donepezil HCl) 5 Mg Tab 5 MG PO QAM for 30 Days, #30 TAB 1 Refill Sertraline HCl (Sertraline HCl) 50 Mg Tab 50 MG PO DAILY for 30 Days, #30 TAB Trazodone HCl (Trazodone HCl) 50 Mg Tab 25 MG PO HS for 30 Days, #30 TAB Continued Medications: Diltiazem Hcl Extended Release (Taztia Xt) 300 Mg Cap 300 MG PO HS for 30 Days, #30 TABS 1 Refill (This prescription has been renewed) Lisinopril/Hctz (Zestoretic 20MG/25MG) Tab 1 TAB PO DAILY for 30 Days, #30 TAB (This prescription has been renewed) Simvastatin (Zocor) 40 Mg Tab 40 MG PO QPM for 30 Days, #30 TAB (This prescription has been renewed) Discontinued Medications: Sertraline (Zoloft) 25 Mg Tab 25 MG PO DAILY, TAB Discharge Exam Review of Systems: Constitutional: No fever, No chills ENT: No nasal symptoms, No sore throat Respiratory: No cough, No shortness of breath Cardiovascular: No chest pain Abdomen: No pain, No nausea, No vomiting, No diarrhea, No constipation Musculoskeletal: No swelling, No calf pain Genitourinary - Female: No dysuria Psychiatric: No depression symptoms, No anxiety Hematologic / Lymphatic: No abnormal bleeding/bruising Integumentary: No rash Physical Exam: General Appearance: WD/WN, no apparent distress Eyes: sclerae normal ENT: hearing grossly normal Respiratory/Chest: lungs clear, normal breath sounds, no respiratory distress, no accessory muscle use Cardiovascular: regular rate, rhythm, no gallop, no murmur Abdomen / GI: normal bowel sounds, non tender, soft Extremities: no calf tenderness, no pedal edema Neurologic/Psychiatric: alert, normal mood/affect, oriented x 3, + pertinent finding (forgetful; keeps asking for coffee and morning meds (which were given)) Skin: normal color, warm/dry Hospital Course ADMISSION: 77 y/o F Hx Alzheimer's dementia, HTN, HPL, HypoNa, DM - diet controlled, Anxiety//depression. Pt apparently had called EMS 3 separate times today because she was "not feeling well". She had refused transport to the hospital the first 2 times she called. She is a poor histroian and currently cannot recall any specifics as to why she had called EMS. She denies CP, SOB, N /V/D, dysuria or fevers. Initial labs reveal a marginally + UA, hypokalemia and leukocytosis. The pt was last admitted 05/28 following a syncopal episode at [facility]. The has support from neighbors in the area, however, due to progressive cognitive decline, it is felt that she may be better off in a nursing facility at this point. This was discusses with her daughter who is her POA during a previous admission and this evening. The pt had refused placement and home health services in May and was discharged home. Her daughter resides in [place]. She has a cousin here who helps manage her affairs. HOSPITAL COURSE: Ms. Wolff was admitted for issues related to underlying Alzheimer/Vascular Dementia and Anxiety. Upon admission patient had dry heaves and a mild leukocytosis. She was treated for UTI while awaiting results which culture was unremarkable. She is unable to provide information of symptoms leading up to admission or reasoning for calling EMS multiple times. Patient is alert and oriented but easily forgetful. Due to Depression/Anxiety her Zoloft was increased to 50 mg daily. From previous admission to now patient's emotional lability has seemed to resolve since home services assisting with medications. She was started on Donepezil [address] Strickland and this was continued. Trazadone was also instituted for insomnia. Upon admission, she is noted to be hyponatremic which appears to be a chronic finding that is likely HCTZ induced. Further labs were unremarkable except for mildly low Vit D and was started on supplementation. She was covered with SSI but A1c is 6.4 and was not D/C'd on anti-diabetic medications. Long conversations were had with daughter who is POA. Multiple incidences of safety concerns were expressed. HHS and OOA have been involved. Per daughter, patient tends to call neighbors and forget why she called them, walks to neighbors home looking for her , and feels she isn't eating well at home. Had psychiatry assist with capacity evaluation. Patient was unable to recall discussing the medical team about placement to personal care. She initially wasn't sure if she had HHS or who fills or medication box or what she takes. She cannot state what she takes medications for or what she has been diagnosed with. She scored a 0/5 on mini cognitive exam and winifred a clock with numbers 1 through 21 and no hands. At this time, patient exhibits a lack of capacity to refuse the recommendation of personal care placement as she could not recall discussing [facility] placement, treatment recommendations, or risk of returning home. The decision was then assigned to Luz Maria, the patients daughter and POA. Ms. Wolff will be discharged to [facility]. Total Time Spent: Greater than 30 minutes This includes examination of the patient, discharge planning, medication reconciliation, and communication with other providers. Discharge Instructions Please refer to the electronic Patient Visit Report (Discharge Instructions) for additional information. Additional Copies To RV. Newby MD; [facility]
== END 2017-07-12 13:41 | disposition home or self-care (01) | DRG 57 ==
LOC: EDBD 21:07 → C.EDC 21:09 → C.MS2W 07-09 00:19 → ENRESERV 07-09 00:29 → OBSVTOIN 07-09 20:17
PROVIDERS: ADMIT Internal Medicine; ATTEND Internal Medicine
DX: G30.9 Alzheimer's disease, unspecified (principal); N17.9 Acute kidney failure, unspecified; F02.80 Dementia in other diseases classified elsewhere, unspecified severity, without behavioral disturbance, psychotic disturbance, mood disturbance, and anxiety; F41.9 Anxiety disorder, unspecified; F32.9 Major depressive disorder, single episode, unspecified; N30.90 Cystitis, unspecified without hematuria; E87.6 Hypokalemia; E11.9 Type 2 diabetes mellitus without complications; I10 Essential (primary) hypertension; E03.9 Hypothyroidism, unspecified; G47.00 Insomnia, unspecified; Z79.899 Other long term (current) drug therapy; Z83.3 Family history of diabetes mellitus

== ENCOUNTER 2017-08-03 12:44 | Emergency (ER) | payer OTHER ==
[~2017-08-03 12:44] MED LIST changes: +ARC5 PO; +DSY50 PO; -SERT25TA PO; +VTMD1000 PO; +ZLF50 PO
[2017-08-03 12:53] VITALS: TEMP 36.9
--- NOTE | 2017-08-03 13:28 | EMERGENCY ROOM VISIT NOTE ---
History First contact with patient: 12:59 Chief Complaint: HYPERTENSION Stated Complaint: HTN History of Present Illness The patient is a 77 year old female who presents to the Emergency Room with complaints of elevated blood pressure. She is a resident from the [facility]. She is accompanied by one of their nursing staff. The patient has known hypertension. She is on a combination of lisinopril and hydrochlorothiazide. Today and the long-term staff took a routine blood pressure on her and reported her blood pressure was 200/100. The patient reported no symptoms at that time. She denies any chest pain, shortness of breath, palpitations, lightheadedness, dizziness, blurred vision, double vision. She has some chronic lower extremity edema that worsens over the course the day but this is long-standing and is unchanged. The nursing staff did not attempt to sit the patient down and repeat a blood pressure within 5-10 minutes. Recommendations were made to send the patient to the emergency room for further evaluation. At this time the patient reports that she is comfortable and denies any the above symptoms. She has been well otherwise. She has not had any nausea, vomiting, diarrhea or constipation. She has not had any dysuria or urinary difficult to use. She denies any fevers chills or night sweats. Her appetite has been very good. She's not had any ambulatory difficulties. Review of Systems See HPI for pertinent positives & negatives. A total of 10 systems reviewed and were otherwise negative. Past Medical/Surgical History Medical Problems: (1) Acute Kidney Failure, Unspecified (2) Acute kidney injury (3) Altered mental status (4) Anemia Nos (5) Anxiety State Nos (6) Aortic Valve Disorder (7) Diab Macrina Wo Compl, Type Ii Or Unspec Type, Not Uncntrld (8) Hypercholesterolemia (9) Hypertension Nos (10) Hypothyroidism, Unspecified (11) Near syncope (12) Syncope and collapse Family History FH: diabetes mellitus FH: heart disease FH: hypertension Social History Smoking Status: Never Smoker Smokeless Tobacco Use: No Alcohol Use: none Drug Use: none Marital Status: Housing Status: assisted living Occupation Status: retired Current/Historical Medications Scheduled Cholecalciferol (Vitamin D3), 1 CAP PO DAILY Diltiazem Hcl Ext Rel (Tiazac), 300 MG PO HS Donepezil Hydrochloride (Donepezil Hcl), 1 TAB PO DAILY Lisinopril/Hctz (Zestoretic 20MG/25MG), 1 TAB PO DAILY Sertraline (Zoloft), 50 MG PO DAILY Simvastatin (Zocor), 40 MG PO QPM Trazodone Hcl (Trazodone), 25 MG PO HS Allergies Diazepam Merepidine Physical Exam Vital Signs Date Time Temp Pulse Resp B/P (MAP) Pulse Ox O2 Delivery O2 Flow Rate FiO2 08/03/17 14:05 65 20 165/77 98 08/03/17 13:46 68 164/72 97 Room Air 08/03/17 13:25 Room Air 08/03/17 13:21 65 08/03/17 13:20 64 19 174/68 97 Room Air 08/03/17 13:20 Room Air 08/03/17 12:53 36.9 64 18 150/69 98 Room Air Physical Exam Constitutional: Vital signs as above were reviewed. Eyes: Pupils equal, round, and reactive to light. Extraocular muscles are intact. No proptosis. No photophobia. ENT: Mucous membranes are moist. Oropharynx is clear. No sinus tenderness. TMs are clear bilaterally. Cardiovascular: Heart with a regular rate and rhythm. GRISEL 3/6, loudest in aortic area, increased with inspiration, no radiation to carotids 1+ edema in the lower extremities bilaterally, which is noted to be a chronic finding Respiratory: Lungs clear to auscultation bilaterally. No wheezes, rales, or rhonchi appreciated. No accessory muscle use. No retractions. No increased work of breathing. GI: Abdomen soft, nontender, nondistended. Normal active bowel sounds. No abdominal hernias appreciated. No rebound. No guarding. : No CVA tenderness appreciated. Musculoskeletal: No midline cervical or vertebral tenderness. No gross deformities. No bony tenderness. No calf swelling or tenderness. Integumentary: Warm, dry, no rashes appreciated. Neurological: Patient awake, alert, and oriented x 3. Cranial nerves two through 12 grossly intact. Motor 5 out of 5 strength bilateral upper and lower extremities. Lymph: No cervical lymphadenopathy appreciated. Medical Decision & Procedures ED Course 13:00 - The patient was seen and evaluated by Dr. John Belle MD [facility] 13:10 - Discussed case with Dr. Davey Hoff, ER attending physician. 13:50 - The patient was prepared for discharge and discharge completed Patient discharged in stable condition. Medical Decision The patient presents with an isolated episode of significantly elevated blood pressure. The patient was completely asymptomatic. The blood pressure was not repeated shortly thereafter to confirm a persistent elevation. At this time the patient's exam is completely asymptomatic. She does have a murmur on her cardiac exam, though per her past medical history, of aortic disease this appears to be chronic and in the absence of symptoms does not need to be explored further at this time. The patient does note a history of type 2 diabetes. As such according to JNC 8 panel, goal blood pressure should be less than 140/90. In the ER her blood pressure is slightly elevated with a systolic blood pressure of 150. However reducing the blood pressure can be gradual and done in the outpatient setting by her primary care provider. At this time given that she looks well, there are no concerning findings on her examination, and her blood pressure is relatively normalized in the ED, I would recommend prompt discharge home with recommendations to monitor blood pressure routinely over the next several days. The patient was discharged back to the long-term in stable condition. Head Trauma GCS Score: 15 Blood Pressure Screening Patient's blood pressure: Normal blood pressure (mild elevation, non-emergent) Blood pressure disposition: Referred to PCP Impression Primary Impression: Elevated blood pressure reading Ruled Out: Hypertensive emergency Departure Information Condition GOOD Referrals Dash Buenrostro D.O. (PCP) Patient Instructions My [facility] Additional Instructions You came to the emergency department because of a high blood pressure. Your blood pressure was relatively normal once he came to the emergency department, at 150/69. In the setting of not having any symptoms, and having a normal exam, this is very reassuring and we do not feel that you need any additional evaluation at this time. You may return to the long-term. We recommend that you have the nursing staff check your blood pressure a couple of times a day and record these to trend them. Your goal blood pressure should be less than 140/90. Your primary care provider will use these numbers to adjust you blood pressure medications accordingly and only as needed. If you've been experiencing headaches, chest pain, shortness of breath, blurred vision, or lower extremity swelling that is new, her blood pressure should be checked and then repeated to confirm the blood pressure. Please see you primary care provider at the long-term to ensure that you continue to do well. It was a pleasure to be involved in your care and we wish you all the best.
[2017-08-03 14:05] VITALS: BP 165/77; PULSE 65; O2SAT 98
[2017-08-03] MEDS ORDERED: LISI-788 PO (14:14)
[2017-08-03] MEDS ORDERED: SERT50TA PO (14:14)
[2017-08-03] MEDS ORDERED: DONE1TAB11 PO (14:14)
[2017-08-03] MEDS ORDERED: DILT-117 PO (14:14)
[2017-08-03] MEDS ORDERED: TRAZ50TA35 PO (14:14)
[2017-08-03] MEDS ORDERED: CHOL2000 PO (14:14)
[2017-08-03] MEDS ORDERED: SIMV40TA2 PO (14:14)
--- NOTE | 2017-08-03 15:47 | EMERGENCY ROOM VISIT NOTE ---
History First contact with patient: 12:59 Chief Complaint: HYPERTENSION Stated Complaint: HTN History of Present Illness The patient is a 77 year old female who presents to the Emergency Room with complaints of hypertension. The patient lives in assisted living the nurse took her blood pressure this morning and it was over 200 systolic. She feels well and has no complaints. She notes she has been in good health recently. She has had prior issues with fluctuation in her blood pressure. Pt denies LOC , headache, fevers, chills, diaphoresis, visual changes, neck pain, chest pain, breathing difficulties, nausea, vomiting, abdominal pain, back pain, melena, hematochezia, urinary symptoms, numbness, weakness, lymphadenopathy, rash, or other complaints. Review of Systems See HPI for pertinent positives and negatives. A total of ten systems were reviewed and were otherwise negative. Past Medical/Surgical History Medical Problems: (1) Acute Kidney Failure, Unspecified (2) Acute kidney injury (3) Altered mental status (4) Anemia Nos (5) Anxiety State Nos (6) Aortic Valve Disorder (7) Diab Macrina Wo Compl, Type Ii Or Unspec Type, Not Uncntrld (8) Hypercholesterolemia (9) Hypertension Nos (10) Hypothyroidism, Unspecified (11) Near syncope (12) Syncope and collapse Family History FH: diabetes mellitus FH: heart disease FH: hypertension Social History Smoking Status: Never Smoker Smokeless Tobacco Use: No Alcohol Use: none Drug Use: none Marital Status: Housing Status: assisted living Occupation Status: retired Current/Historical Medications Scheduled Cholecalciferol (Vitamin D3), 1 CAP PO DAILY Diltiazem Hcl Ext Rel (Tiazac), 300 MG PO HS Donepezil Hydrochloride (Donepezil Hcl), 1 TAB PO DAILY Lisinopril/Hctz (Zestoretic 20MG/25MG), 1 TAB PO DAILY Sertraline (Zoloft), 50 MG PO DAILY Simvastatin (Zocor), 40 MG PO QPM Trazodone Hcl (Trazodone), 25 MG PO HS Physical Exam Vital Signs Date Time Temp Pulse Resp B/P (MAP) Pulse Ox O2 Delivery O2 Flow Rate FiO2 08/03/17 14:05 65 20 165/77 98 08/03/17 13:46 68 164/72 97 Room Air 08/03/17 13:25 Room Air 08/03/17 13:21 65 08/03/17 13:20 64 19 174/68 97 Room Air 08/03/17 13:20 Room Air 08/03/17 12:53 36.9 64 18 150/69 98 Room Air Physical Exam GENERAL: Awake, alert, well-appearing, in no distress HENT: Normocephalic, atraumatic. Oropharynx unremarkable. EYES: Normal conjunctiva. Sclera non-icteric. NECK: Supple. No nuchal rigidity. FROM. No JVD. RESPIRATORY: Clear to auscultation. CARDIAC: Regular rate, normal rhythm. Extremities warm and well perfused. Pulses equal. ABDOMEN: Soft, non-distended. No tenderness to palpation. No rebound or guarding. No masses. RECTAL: Deferred. MUSCULOSKELETAL: Chest examination reveals no tenderness. The back is symmetrical on inspection without obvious abnormality. There is no CVA tenderness to palpation. No joint edema. LOWER EXTREMITIES: Calves are equal size bilaterally and non-tender. 1+ edema. No discoloration. NEURO: Normal sensorium. No sensory or motor deficits noted. SKIN: No rash or jaundice noted. Medical Decision & Procedures Medical Decision Prior records/ancillary studies reviewed regarding the history above. Triage Nursing notes reviewed and agree them. The patient's history was concerning for hypertension. Differential diagnosis: Etiologies such as benign hypertension, hypertensive urgency, hypertensive emergency,cardiovascular pathology, pheochromocytoma, electrolyte abnormality, renal disease, endorgan damage, as well as others were entertained. Physical examination: As above. ER treatment provided: No medication given Blood pressure was much improved on reassessment. On reassessment the patient felt better. Diagnostic interpretation by me: Deferred as the patient is completely asymptomatic and blood pressure resolved. The patient was seen and examined with Dr. John Belle, resident physician. We discussed the case and treatments ordered, reviewed the results, and determine the disposition. Please refer to the resident's note for additional details. I have been directly involved with the management and disposition as well as independently evaluated the patient as documented in this note. By the evaluation outlined above emergent etiologies such as hypertensive emergency, pheochromocytoma, endorgan damage, cardiac ischemia, aortic dissection, pulmonary embolism, pneumonia, pneumothorax, infections, gastrointestinal, as well as others were deemed relatively unlikely. The patient was informed about the findings as listed above. All questions were answered and she was pleased with the treatment. Return instructions were outlined and the patient was discharged in stable condition. Outpatient prescription management: no change Referral: The patient was referred back to her primary care physician for follow-up in 2 to 3 days for a recheck of the current condition. Impression Primary Impression: Hypertension Additional Impression: Elevated blood pressure reading Ruled Out: Hypertensive emergency Departure Information Dispostion Home / Self-Care Condition GOOD Referrals Dash Buenrostro D.O. (PCP) Forms WORK / SCHOOL INSTRUCTIONS, HOME CARE DOCUMENTATION FORM, IMPORTANT VISIT INFORMATION Patient Instructions My [facility] Additional Instructions You came to the emergency department because of a high blood pressure. Your blood pressure was relatively normal once he came to the emergency department, at 150/69. In the setting of not having any symptoms, and having a normal exam, this is very reassuring and we do not feel that you need any additional evaluation at this time. You may return to the long term. We recommend that you have the nursing staff check your blood pressure a couple of times a day and record these to trend them. Your goal blood pressure should be less than 140/90. Your primary care provider will use these numbers to adjust you blood pressure medications accordingly and only as needed. If you've been experiencing headaches, chest pain, shortness of breath, blurred vision, or lower extremity swelling that is new, her blood pressure should be checked and then repeated to confirm the blood pressure. Please see you primary care provider at the long term to ensure that you continue to do well. It was a pleasure to be involved in your care and we wish you all the best. Problem Qualifiers
== END 2017-08-03 14:05 ==
LOC: C.EDB 12:44 → C.EDC 14:05
DX: I10 Essential (primary) hypertension (principal); R60.0 Localized edema; D64.9 Anemia, unspecified; F41.9 Anxiety disorder, unspecified; E11.9 Type 2 diabetes mellitus without complications; E78.5 Hyperlipidemia, unspecified; E03.9 Hypothyroidism, unspecified; Z83.3 Family history of diabetes mellitus; Z82.49 Family history of ischemic heart disease and other diseases of the circulatory system; Z79.899 Other long term (current) drug therapy

== ENCOUNTER → 2017-12-19 | Outpatient (CLI) | payer OTHER ==
[~2017-12-19] MED LIST changes: -ARC5 PO; +CHOL2000 PO; +DILT-117 PO; -DILT300C24 PO; +DONE5TAB26 PO; -DSY50 PO; +SERT50TA PO; +SIMV40TA2 PO; -SIMV40TA4 PO; +TRAZ50TA35 PO; -VTMD1000 PO; -ZLF50 PO
[2017-12-19 08:36] LABS: HEMATOCRIT 37.7 % (37-47); HEMOGLOBIN 13.4 g/dL (12.0-16.0); MEAN CELL VOLUME 93.5 fL (80-100); MEAN CORPUSCULAR HEMOGLOBIN 33.3 pg (25-34); MEAN CORPUSCULAR HGB CONC 35.5 g/dl (32-36); PLATELET COUNT 353 K/uL (130-400); RED CELL DISTRIBUTION WIDTH CV 12.3 % (11.5-14.5); RED CELL DISTRIBUTION WIDTH SD 41.5 fL (36.4-46.3); WHITE BLOOD COUNT 5.41 K/uL (4.8-10.8)
[2017-12-19 08:55] LABS: BLOOD UREA NITROGEN 19 mg/dl (7-18); CALCIUM 9.3 mg/dl (8.5-10.1); CARBON DIOXIDE 31 mmol/L (21-32); CREATININE 0.75 mg/dl (0.60-1.20); GLUCOSE 111 mg/dl (70-99); SODIUM 135 mmol/L (136-145)
== END | disposition home or self-care (01) ==
LOC: C.LABWYN 08:13
PROVIDERS: ATTEND Internal Medicine
DX: E03.9 Hypothyroidism, unspecified (principal); I10 Essential (primary) hypertension

== ENCOUNTER 2020-11-05 10:54 | Observation (INO) ==
[2020-11-05] MEDS ORDERED: SODIUM CHLORIDE 0.9% 500 ML IV SCH (11:00)
[2020-11-05 11:17] LABS: iSTAT Creatinine 1.5 mg/dl (0.6-1.3); iSTAT Hemoglobin 11.6 g/dl (12.0-16.0); iSTAT Ionized Calcium 1.15 mmol/l (1.12-1.32); iSTAT Potassium 4.9 mmol/L (3.3-5.0)
--- NOTE | 2020-11-05 11:18 | Emergency Department Note ---
Impression & Plan Third degree heart block, Weakness, Pleural effusion ED Provider Note NAME: AMERICO TOM AGE: 80 SEX: F : 1940 ARRIVES VIA: Ambulance INFORMANT: Patient, prehospital personnel, the patient's daughter in [place] ED PROVIDER(S): Ken Taylor DO CHIEF COMPLAINT: Weakness HPI: The patient is an 80-year-old female who presented to the emergency department from a personal intermediate for an evaluation of generalized weakness. The patient was experiencing generalized weakness and lower extremity swelling over the course of the last few days. She was noted to have a very low pulse rate today and was complaining of difficulty ambulating. The patient denies having any chest pain but does complain of some dyspnea on exertion. She denies having any abdominal pain or fevers. She was recently tested for COVID-19 and was negative. The patient has had no recent falls. She denies having any headache. There is been no reported altered mental status although the patient does have some underlying dementia. ROS: See above HPI for pertinent positives & negatives. A total of 10 systems reviewed and were otherwise negative. PAST MEDICAL HISTORY: See Below PAST SURGICAL HISTORY: See Below FAMILY HISTORY: See Below SOCIAL HISTORY: See Below HOME MEDICATIONS: See Below ALLERGIES: See Below VITALS: See Below PHYSICAL EXAMINATION: GENERAL: The patient is awake and alert. She is somewhat anxious appearing. EYES: The conjunctivae are clear. The pupils are round and reactive. EARS, NOSE, MOUTH AND THROAT: The nose is without any evidence of any deformity. NECK: The neck is nontender and supple. RESPIRATORY: Shallow respirations were noted. There is no tachypnea or conversational dyspnea appreciated. CARDIOVASCULAR: Bradycardic rate was noted to auscultation. Ectopy was noted to auscultation. No definite murmur was appreciated. GASTROINTESTINAL: Abdomen is mildly distended with diffuse upper tenderness to palpation. There is right upper quadrant tenderness to palpation which was moderate. MUSCULOSKELETAL/EXTREMITIES: There is no evidence of gross deformity full range of motion is noted in the hips and shoulders. SKIN: Skin was warm and dry. Pedal edema was noted bilaterally. NEUROLOGIC: The patient is awake and oriented to person place but not time. She does recognize talking to her daughter on the phone. MEDICAL DECISION MAKING: The patient is an 80-year-old female who presented to the emergency department for an evaluation of generalized weakness and bradycardia. The patient was having symptoms of weakness and lower extremity swelling over the course of the last few days. She presented to the emergency department today by ambulance in third-degree heart block. Blood pressure was stable. She was treated with a small fluid bolus. The patient was placed on the transcutaneous pacer. The patient remained stable while in the emergency department. She was evaluated by the [facility] real estate processor in the emergency department. I discussed the patient's laboratory and radiographic studies with her and her daughter via telephone. I discussed her case with the on-call [facility] hospitalist group. They have agreed to evaluate the patient in the emergency department for further management and disposition. Triage Nursing notes reviewed. Prior medical records reviewed Vital Signs: reviewed and remarkable for bradycardia. Differential diagnosis: Infection, dehydration, metabolic abnormality, hypo/hyperglycemia, electrolyte disturbance, anemia, hypoxia, cardiac sources, intracerebral event, toxicologic, neurologic, as well as other pathologies. ER treatment provided: See below Diagnostics interpreted by me: ECG: EKG was obtained in the emergency department. My interpretation is third- degree heart block at 41 bpm. Frequent PVCs were noted. The craig complexes were borderline narrow. This was compared to a tracing from May 272018. Third-degree heart block has replaced sinus rhythm. Cardiac Monitoring: An order was placed for continuous cardiac monitoring. The monitor shows a rate of 28 bpm with third-degree heart block rhythm. Laboratory studies: As stated above and show below. Imaging studies: See below Consultation(s): 1115: I discussed this case with Dr. Fortune who is on-call for the [facility] cardiology group. ED COURSE: Procedures: none PDMP:reviewed and no issues Critical Care: I have personally spent greater than 45 minutes of critical care time in the direct management of this patient. This includes bedside care, interpretation of diagnostic studies, and testing, discussion with consultants, patient, and family members, and other required patient management activities. This 45 minut es is in excess of all separately billable procedures. Past Med/Surg History Medical History (Updated 11/05/20 @ 12:33 by Ken Taylor DO) Acute kidney injury Altered mental status Dementia Elevated blood pressure reading Hypercholesterolemia Hypertension Hyponatremia Left ankle sprain Near syncope Syncope and collapse Family History Other No pertinent family history in first degree relatives Social History Smoking Status: Never smoker Current Living Situation: [facility] Feels Safe at Home: Yes Allergies Allergies Allergy/AdvReac Type Severity Reaction Status Date / Time diazepam Allergy Unknown LISTED BY Verified 11/05/20 12:12 MD ADVERSE RX meperidine Allergy Unknown Verified 11/05/20 12:12 Home Meds Home Medications Medication Instructions Recorded Confirmed cholecalciferol (vitamin D3) 2,000 unit PO QAM 05/27/19 11/05/20 [Vitamin D3] diltiazem HCl 300 mg PO HS 05/27/19 11/05/20 donepezil 5 mg PO QAM 05/27/19 11/05/20 naproxen sodium 220 mg PO BID 05/27/19 11/05/20 sertraline 50 mg PO QAM 05/27/19 11/05/20 sertraline 100 mg PO QAM 05/27/19 11/05/20 simvastatin 40 mg PO HS 05/27/19 11/05/20 trazodone 25 mg PO HS 05/27/19 11/05/20 acetaminophen [Tylenol] 650 mg PO Q4H PRN 11/05/20 11/05/20 lisinopril 20 mg PO QAM 11/05/20 11/05/20 loperamide 2 mg PO Q4H PRN 11/05/20 11/05/20 lorazepam 1 mg PO TID 11/05/20 11/05/20 ondansetron 4 mg PO Q6H PRN 11/05/20 11/05/20 Results & Data (ED) Vital Signs Vital Signs - 24 hr 11/05/20 10:44 11/05/20 10:59 11/05/20 11:32 Temperature 36.9 C Temperature Source Oral Pulse Rate 35 L Pulse Rate [Apical] Respiratory Rate 22 Respiratory Effort / Characteristics Respiratory Depth Normal Respiratory Pattern Blood Pressure 138/76 Blood Pressure [Right Arm] Blood Pressure Mean 96 Blood Pressure Mean [Right Arm] Blood Pressure Position Lying Blood Pressure Position [Right Arm] Pulse Oximetry 90 89 L 94 Oxygen Delivery Method Room Air Room Air Nasal Cannula Nasal Cannula Oxygen Flow Rate 2 Sepsis Recent Fever Within 48 Hours No Sepsis New/Unexplained Change in Mental Status No Sepsis Action Taken by Nursing No Action Required Oxygen Flow Rate - Titration 2 Pulse Oximetry Post Tiitration 95 11/05/20 11:58 Temperature Temperature Source Pulse Rate Pulse Rate [Apical] 37 L Respiratory Rate 16 Respiratory Effort / Characteristics Non-Labored Spontaneous Respiratory Depth Normal Respiratory Pattern Regular Blood Pressure Blood Pressure [Right Arm] 136/76 Blood Pressure Mean Blood Pressure Mean [Right Arm] 96 Blood Pressure Position Blood Pressure Position [Right Arm] Lying Pulse Oximetry 96 Oxygen Delivery Method Nasal Cannula Oxygen Flow Rate 2 Sepsis Recent Fever Within 48 Hours Sepsis New/Unexplained Change in Mental Status Sepsis Action Taken by Nursing Oxygen Flow Rate - Titration Pulse Oximetry Post Tiitration Home Medications Current Medication List: was personally reviewed by me Laboratory Data Attestation: I reviewed the patient's lab results. Result diagrams: 11/05/20 11:00 11/05/20 11:00 Lab Results 11/05/20 11/05/20 11/05/20 Range/Units 11:00 11:00 11:00 WBC 8.92 (4.8-10.8) K/uL RBC 3.43 L (4.2-5.4) M/uL Hgb 11.4 L (12.0-16.0) g/dL POC Hgb (12.0-16.0) g/dl Hct 33.8 L (37-47) % POC Hct (37-47) % MCV 98.5 (80-100) fL MCH 33.2 (25-34) pg MCHC 33.7 (32-36) g/dL RDW Std Deviation 46.1 (36.4-46.3) fL RDW Coeff of Cedric 12.9 (11.5-14.5) % Plt Count 296 (130-400) K/uL MPV 10.1 (7.4-10.4) fL Immature Gran % (Auto) 0.2 % Neut % (Auto) 72.6 % Lymph % (Auto) 17.8 % Howell % (Auto) 7.6 % Eos % (Auto) 1.6 % Baso % (Auto) 0.2 % Neut # (Auto) 6.47 (1.4-6.5) K/uL Lymph # (Auto) 1.59 (1.2-3.4) K/uL Howell # (Auto) 0.68 H (0.11-0.59) K/uL Eos # (Auto) 0.14 (0-0.5) K/uL Baso # (Auto) 0.02 (0-0.2) K/uL Immature Gran # (Auto) 0.02 (0.00-0.02) K/uL PT 11.1 (9.0-12.0) Seconds INR 1.1 (0.9-1.1) APTT 24.6 (21.0-31.0) Seconds PTT Ratio 0.9 POC Sodium (135-144) mmol/L Sodium 136 (136-145) mmol/L POC Potassium (3.3-5.0) mmol/L Potassium 4.9 (3.5-5.1) mmol/L POC Chloride (101-112) mmol/L Chloride 108 H (98-107) mmol/L Carbon Dioxide 22 (21-32) mmol/L POC Total CO2 (24-31) mmol/L Anion Gap 7.0 (3-11) POC Anion Gap (16-25) mmol/L POC BUN (7-18) mg/dl BUN 42 H (7-18) mg/dl Creatinine 1.60 H (0.6-1.2) mg/dl POC Creatinine (0.6-1.3) mg/dl Est Cr Clr Drug Dosing 29.0 ml/min Est GFR ( Amer) 34.9 Est GFR (Non-Af Amer) 30.1 BUN/Creatinine Ratio 26.3 H (10-20) Glucose 176 H (70-99) mg/dl POC Glucose (other) (70-99) mg/dl Calcium 8.8 (8.5-10.1) mg/dl POC Ioniz Calcium Cristhian (1.12-1.32) mmol/l Magnesium 2.9 H (1.8-2.4) mg/dl Total Bilirubin 0.5 (0.2-1) mg/dl AST 15 (15-37) U/L ALT 21 (12-78) U/L Alkaline Phosphatase 99 (45-117) U/L Troponin I < 0.015 (0-0.045) ng/ml Total Protein 6.6 (6.4-8.2) gm/dl Albumin 3.6 (3.4-5.0) gm/dl Globulin 3.0 (2.5-4.0) gm/dl Albumin/Globulin Ratio 1.2 (0.9-2) TSH 3.610 (0.300-4.500) uIu/ml Digoxin (0.8-2.0) ng/ml COVID-19 Eval Order SARS-CoV-2, RNA, NAAT (NEGATIVE) 11/05/20 11/05/20 11/05/20 Range/Units 11:05 11:10 11:21 WBC (4.8-10.8) K/uL RBC (4.2-5.4) M/uL Hgb (12.0-16.0) g/dL POC Hgb 11.6 L (12.0-16.0) g/dl Hct (37-47) % POC Hct 34 L (37-47) % MCV (80-100) fL MCH (25-34) pg MCHC (32-36) g/dL RDW Std Deviation (36.4-46.3) fL RDW Coeff of Cedric (11.5-14.5) % Plt Count (130-400) K/uL MPV (7.4-10.4) fL Immature Gran % (Auto) % Neut % (Auto) % Lymph % (Auto) % Howell % (Auto) % Eos % (Auto) % Baso % (Auto) % Neut # (Auto) (1.4-6.5) K/uL Lymph # (Auto) (1.2-3.4) K/uL Howell # (Auto) (0.11-0.59) K/uL Eos # (Auto) (0-0.5) K/uL Baso # (Auto) (0-0.2) K/uL Immature Gran # (Auto) (0.00-0.02) K/uL PT (9.0-12.0) Seconds INR (0.9-1.1) APTT (21.0-31.0) Seconds PTT Ratio POC Sodium 135 (135-144) mmol/L Sodium (136-145) mmol/L POC Potassium 4.9 (3.3-5.0) mmol/L Potassium (3.5-5.1) mmol/L POC Chloride 107 (101-112) mmol/L Chloride (98-107) mmol/L Carbon Dioxide (21-32) mmol/L POC Total CO2 22 L (24-31) mmol/L Anion Gap (3-11) POC Anion Gap 12.0 L (16-25) mmol/L POC BUN 38 H (7-18) mg/dl BUN (7-18) mg/dl Creatinine (0.6-1.2) mg/dl POC Creatinine 1.5 H (0.6-1.3) mg/dl Est Cr Clr Drug Dosing ml/min Est GFR ( Amer) Est GFR (Non-Af Amer) BUN/Creatinine Ratio (10-20) Glucose (70-99) mg/dl POC Glucose (other) 177 H (70-99) mg/dl Calcium (8.5-10.1) mg/dl POC Ioniz Calcium Cristhian 1.15 (1.12-1.32) mmol/l Magnesium (1.8-2.4) mg/dl Total Bilirubin (0.2-1) mg/dl AST (15-37) U/L ALT (12-78) U/L Alkaline Phosphatase (45-117) U/L Troponin I (0-0.045) ng/ml Total Protein (6.4-8.2) gm/dl Albumin (3.4-5.0) gm/dl Globulin (2.5-4.0) gm/dl Albumin/Globulin Ratio (0.9-2) TSH (0.300-4.500) uIu/ml Digoxin 0.1 L (0.8-2.0) ng/ml COVID-19 Eval Order Cancelled SARS-CoV-2, RNA, NAAT (NEGATIVE) 11/05/20 11/05/20 Range/Units 11:21 11:21 WBC (4.8-10.8) K/uL RBC (4.2-5.4) M/uL Hgb (12.0-16.0) g/dL POC Hgb (12.0-16.0) g/dl Hct (37-47) % POC Hct (37-47) % MCV (80-100) fL MCH (25-34) pg MCHC (32-36) g/dL RDW Std Deviation (36.4-46.3) fL RDW Coeff of Cedric (11.5-14.5) % Plt Count (130-400) K/uL MPV (7.4-10.4) fL Immature Gran % (Auto) % Neut % (Auto) % Lymph % (Auto) % Howell % (Auto) % Eos % (Auto) % Baso % (Auto) % Neut # (Auto) (1.4-6.5) K/uL Lymph # (Auto) (1.2-3.4) K/uL Howell # (Auto) (0.11-0.59) K/uL Eos # (Auto) (0-0.5) K/uL Baso # (Auto) (0-0.2) K/uL Immature Gran # (Auto) (0.00-0.02) K/uL PT (9.0-12.0) Seconds INR (0.9-1.1) APTT (21.0-31.0) Seconds PTT Ratio POC Sodium (135-144) mmol/L Sodium (136-145) mmol/L POC Potassium (3.3-5.0) mmol/L Potassium (3.5-5.1) mmol/L POC Chloride (101-112) mmol/L Chloride (98-107) mmol/L Carbon Dioxide (21-32) mmol/L POC Total CO2 (24-31) mmol/L Anion Gap (3-11) POC Anion Gap (16-25) mmol/L POC BUN (7-18) mg/dl BUN (7-18) mg/dl Creatinine (0.6-1.2) mg/dl POC Creatinine (0.6-1.3) mg/dl Est Cr Clr Drug Dosing ml/min Est GFR ( Amer) Est GFR (Non-Af Amer) BUN/Creatinine Ratio (10-20) Glucose (70-99) mg/dl POC Glucose (other) (70-99) mg/dl Calcium (8.5-10.1) mg/dl POC Ioniz Calcium Cristhian (1.12-1.32) mmol/l Magnesium (1.8-2.4) mg/dl Total Bilirubin (0.2-1) mg/dl AST (15-37) U/L ALT (12-78) U/L Alkaline Phosphatase (45-117) U/L Troponin I (0-0.045) ng/ml Total Protein (6.4-8.2) gm/dl Albumin (3.4-5.0) gm/dl Globulin (2.5-4.0) gm/dl Albumin/Globulin Ratio (0.9-2) TSH (0.300-4.500) uIu/ml Digoxin (0.8-2.0) ng/ml COVID-19 Eval [facility] SARS-CoV-2, RNA, NAAT NEGATIVE (NEGATIVE) Administered Medications Discontinued Medications Sodium Chloride (Nss) 500 mls @ 999 mls/hr IV .Q31M KRYSTA Stop: 11/05/20 11:30 Last Admin: 11/05/20 11:46 Dose: 999 mls/hr Documented by: [id number] Calcium Gluconate () 1,000 mg in 60 mls @ 240 mls/hr IV NOW STA Stop: 11/05/20 11:49 Last Admin: 11/05/20 11:46 Dose: 240 mls/hr Documented by: [id number] Imaging Data Radiologist's Impression: Patient: AMERICO TOM Admit Date: 11/05/20 MR#: [id number] Address1: [address] [place] [address] Acct ID:[id number] Address2: [facility] Date: 1940 [facility] Zip: [place] [address] Age: 80 Location: ED Sex: F Room/Bed: Att Phy: Diagnosis: [facility] Service Date: 11/05/20 [facility] Phy: Interpreting Phy: Jonathan Muller MD Admit Phy: Ordering Phy: Ken Taylor DO cc: ~ XR chest 1V portable CLINICAL HISTORY: weakness COMPARISON STUDY: 05/27/2019 FINDINGS: The heart is borderline enlarged. There is elevation of interstitium. There are patchy basilar airspace opacities. The small right pleural effusion. There is no pneumothorax.[ IMPRESSION: 1. Elevation of interstitium and patchy basilar airspace opacities with a small right pleural effusion. Diagnostic considerations include congestive failure with lower lung zone edema versus an infectious/inflammatory process. Clinical and radiographic follow-up is recommended. ACT 112: Negative or not required by law. Electronically signed by: Jonathan Muller M.D. 11/05/2020 11:37 AM Dictated: 11/05/20 1135 Transcribed: 11/05/20 1135 Patient: AMERICO TOM Admit Date: 11/05/20 MR#: [id number] Address1: [facility] Acct ID:[id number] Address2: [place] Date: 1940 [facility] Zip: [place] [address] Age: 80 Location: ED Sex: F Room/Bed: Att Phy: Diagnosis: CARDIAC ASSESSMENT Kaylee Phy: [facility] Service Date: 11/05/20 [facility] Phy: Interpreting Phy: Jonathan Muller MD Admit Phy: Ordering Phy: Ken Taylor, cc: ~ CT SCAN OF THE ABDOMEN AND PELVIS WITHOUT CONTRAST CLINICAL HISTORY: right flank pain COMPARISON STUDY: No previous studies for comparison. TECHNIQUE: CT scan of the abdomen and pelvis was performed from the lung bases to the proximal femurs. Images are reviewed in the axial, sagittal, and coronal planes. IV contrast was not administered for this examination. A dose lowering technique was utilized adhering to the principles of ALARA. CT DOSE: 825.88 mGycm FINDINGS: Lower chest: There is a moderate right pleural effusion and small left pleural effusion. There are dependent airspace opacities statistically atelectatic Liver: The unenhanced liver is normal in size, contour, and attenuation. There is no intrahepatic biliary ductal dilatation. Gallbladder: There is mild gallbladder distention. The wall appears under mild tension. No calculi are visualized on CT scanning. There is no gallbladder wall thickening or pericholecystic fluid identified Spleen: Normal in size and attenuation. 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 Kidneys: There is bilateral perinephric stranding. There is no significant hydronephrosis. No renal, ureteral, or bladder calculi are visualized Bowel: There are no transition zones indicate bowel obstruction. The appendix appears normal. There is no acute diverticulitis. Peritoneum: There is a small amount of perihepatic fluid. There is a small amount of free pelvic fluid. Vasculature: The abdominal aorta is normal in course and caliber. Adenopathy: None. Pelvic viscera: The uterus appears surgically absent Skeletal structures: No destructive osseous lesions are seen. IMPRESSION: 1. Moderate right pleural effusion and small left pleural effusion 2. Gallbladder distention. Subtle tense gallbladder wall sign but no evidence of gallbladder wall thickening. Gallbladder sonography might be considered in follow-up. 3. No evidence of bowel obstruction. No evidence of free air 4. Bilateral perinephric stranding. No renal, ureteral, or bladder calculi identified 5. Normal appendix. No evidence of acute diverticulitis 6. Low volume of free intraperitoneal fluid ACT 112: Negative or not required by law. Electronically signed by: Jonathan Muller M.D. 11/05/2020 12:28 PM Dictated: 11/05/20 1222 Transcribed: 11/05/20 1222 Blood Pressure Blood Pressure Findings: Normal blood pressure Discharge Plan Visit Data Chief Complaint: Cardiac Assessment ED Provider: Ken Taylor Discharge Problem: Third degree heart block, Weakness, Pleural effusion Patient Disposition: Being Evaluated by Hospitalist Condition: Good Forms Stand Alone Forms: [employer] Prescriptions Prescriptions: No Action acetaminophen [Tylenol] 325 mg Tablet 650 mg PO Q4H PRN (Reason: fever/pain) RF: 0 loperamide 2 mg Capsule 2 mg PO Q4H PRN (Reason: Diarrhea) RF: 0 lisinopril 20 mg Tablet 20 mg PO QAM RF: 0 lorazepam 1 mg Tablet 1 mg PO TID RF: 0 ondansetron 4 mg Tablet,Disintegrating 4 mg PO Q6H PRN (Reason: nausea or vomiting) RF: 0 donepezil 5 mg Tablet 5 mg PO QAM RF: 0 trazodone 50 mg Tablet 25 mg PO HS RF: 0 sertraline 100 mg Tablet 100 mg PO QAM RF: 0 diltiazem HCl 300 mg Capsule,Extended Release 24 Hr 300 mg PO HS RF: 0 simvastatin 40 mg Tablet 40 mg PO HS RF: 0 naproxen sodium 220 mg Tablet 220 mg PO BID RF: 0 sertraline 50 mg Tablet 50 mg PO QAM RF: 0 cholecalciferol (vitamin D3) [Vitamin D3] 2,000 unit Tablet 2,000 unit PO QAM RF: 0 Referrals Referrals: Moriah Hall [Primary Care Provider] -
[2020-11-05 11:19] LABS: Basophils # (auto) 0.02 K/uL (0-0.2); Basophils % (auto) 0.2 %; Eosinophils # (auto) 0.14 K/uL (0-0.5); Eosinophils % (auto) 1.6 %; Hematocrit (blood only) 33.8 % (37-47); Hemoglobin 11.4 g/dL (12.0-16.0); Immature Granulocytes # (auto) 0.02 K/uL (0.00-0.02); Immature Granulocytes % (auto) 0.2 %; Lymphocytes # (auto) 1.59 K/uL (1.2-3.4); Lymphocytes % (auto) 17.8 %; Mean Corpuscular Hemoglobin 33.2 pg (25-34); Mean Corpuscular Hgb Conc 33.7 g/dL (32-36); Mean Corpuscular Volume 98.5 fL (80-100); Mean Platelet Volume 10.1 fL (7.4-10.4); Monocytes # (auto) 0.68 K/uL (0.11-0.59); Monocytes % (auto) 7.6 %; Neutrophils # (auto) 6.47 K/uL (1.4-6.5); Neutrophils % (auto) 72.6 %; Platelet Count 296 K/uL (130-400); RDW Coefficient of Variation 12.9 % (11.5-14.5); RDW Standard Deviation 46.1 fL (36.4-46.3); Red Blood Count 3.43 M/uL (4.2-5.4); White Blood Count 8.92 K/uL (4.8-10.8)
[2020-11-05 11:22] LABS: INR 1.1 (0.9-1.1); Partial Thromboplastin Ratio 0.9; Partial Thromboplastin Time 24.6 Seconds (21.0-31.0); Prothrombin Time 11.1 Seconds (9.0-12.0)
[2020-11-05 11:31] LABS: Alanine Aminotransferase 21 U/L (12-78); Albumin Level 3.6 gm/dl (3.4-5.0); Aspartate Aminotransferase 15 U/L (15-37); BUN Creatinine Ratio 26.3 (10-20); Blood Urea Nitrogen 42 mg/dl (7-18); Calcium 8.8 mg/dl (8.5-10.1); Carbon Dioxide 22 mmol/L (21-32); Chloride 108 mmol/L (98-107); Est GFR (African American) 34.9; Est GFR (Non-African American) 30.1; Glucose 176 mg/dl (70-99); Magnesium 2.9 mg/dl (1.8-2.4); Potassium 4.9 mmol/L (3.5-5.1); Sodium 136 mmol/L (136-145)
[2020-11-05] MEDS ORDERED: CALCIUM GLUCONATE 1,000 MG/60 ML BAG IV STA (11:35)
--- NOTE | 2020-11-05 11:38 | XRay Report ---
XR chest 1V portable CLINICAL HISTORY: weakness COMPARISON STUDY: 05/27/2019 FINDINGS: The heart is borderline enlarged. There is elevation of interstitium. There are patchy basi lar airspace opacities. The small right pleural effusion. There is no pneumothorax.[ IMPRESSION: 1. Elevation of interstitium and patchy basilar airspace opacities with a small right pleural effusio n. Diagnostic considerations include congestive failure with lower lung zone edema versus an infectio us/inflammatory process. Clinical and radiographic follow-up is recommended. ACT 112: Negative or not required by law. Electronically signed by: Jonathan Muller M.D. 11/05/2020 11:37 AM
[2020-11-05 11:41] LABS: Albumin Globulin Ratio 1.2 (0.9-2); Alkaline Phosphatase 99 U/L (45-117); Bilirubin,Total 0.5 mg/dl (0.2-1); Total Protein 6.6 gm/dl (6.4-8.2); Troponin I < 0.015 ng/ml (0-0.045)
--- NOTE | 2020-11-05 12:30 | CT Scan Report ---
CT SCAN OF THE ABDOMEN AND PELVIS WITHOUT CONTRAST CLINICAL HISTORY: right flank pain COMPARISON STUDY: No previous studies for comparison. TECHNIQUE: CT scan of the abdomen and pelvis was performed from the lung bases to the proximal femurs . Images are reviewed in the axial, sagittal, and coronal planes. IV contrast was not administered fo r this examination. A dose lowering technique was utilized adhering to the principles of ALARA. CT DOSE: 825.88 mGycm FINDINGS: Lower chest: There is a moderate right pleural effusion and small left pleural effusion. There are de pendent airspace opacities statistically atelectatic Liver: The unenhanced liver is normal in size, contour, and attenuation. There is no intrahepatic lucien iary ductal dilatation. Gallbladder: There is mild gallbladder distention. The wall appears under mild tension. No calculi ar e visualized on CT scanning. There is no gallbladder wall thickening or pericholecystic fluid identif ied Spleen: Normal in size and attenuation. Pancreas: There is 16mm cystic lesion in the region the pancreatic neck, likely representing a side b ranch IPMN Adrenal glands: Unremarkable. Kidneys: There is bilateral perinephric stranding. There is no significant hydronephrosis. No renal, ureteral, or bladder calculi are visualized Bowel: There are no transition zones indicate bowel obstruction. The appendix appears normal. There i s no acute diverticulitis. Peritoneum: There is a small amount of perihepatic fluid. There is a small amount of free pelvic flui d. Vasculature: The abdominal aorta is normal in course and caliber. Adenopathy: None. Pelvic viscera: The uterus appears surgically absent Skeletal structures: No destructive osseous lesions are seen. IMPRESSION: 1. Moderate right pleural effusion and small left pleural effusion 2. Gallbladder distention. Subtle tense gallbladder wall sign but no evidence of gallbladder wall thi ckening. Gallbladder sonography might be considered in follow-up. 3. No evidence of bowel obstruction. No evidence of free air 4. Bilateral perinephric stranding. No renal, ureteral, or bladder calculi identified 5. Normal appendix. No evidence of acute diverticulitis 6. Low volume of free intraperitoneal fluid ACT 112: Negative or not required by law. Electronically signed by: Jonathan Muller M.D. 11/05/2020 12:28 PM
--- NOTE | 2020-11-05 12:41 | History & Physical Report ---
Date of Service November 05, 2020 Assessment & Plan (1) Third degree heart block: (2) Goals of care, counseling/discussion: (3) Weakness: (4) Pleural effusion: (5) Type 2 diabetes mellitus: (6) Depression: (7) Anxiety: (8) Hyponatremia: (9) Hypertension: This is an 80-year-old female with PMH of type 2 diabetes, hypertension, depression, anxiety and arthritis who resides at [facility] and presents with generalized weakness and was found to have third degree heart block. Patient presented with generalized weakness, BLE edema, bradycardia and frequent falls. ECG consistent with third degree heart block with HR in 20s-30s. Was evaluated in ED by Dr. Fortune and was given atropine and started on dopamine drip while discussing goals of care with family as patient has advanced dementia and lacks decision making capacity. After long discussion with patient's daughter, she made it clear that she is not interested in pursuing temporary or permanent pacemaker placement due to patient's advanced dementia and comorbidities. Unfortunately heart rate has not improved on dopamine and patient now has developed hypertension. Per discussion with Dr. Lambert and Dr. Fortune, the continuation of dopamine is not beneficial considering goals of care and will therefore be discontinued. As the situation continued to evolve and dallas Pendleton was able to speak with her mom over the phone, she has made the decision to pursue comfort care measures. Patient to be transferred out of ICU to med/surg floor. Comfort care orders placed. Discussed case with palliative care. Daughter is planning to travel from [place] and was given my cell number to call for further discussion/questions. Nursing aware and know to call daughter if condition worsens acutely. Daughter Keerthi Scott (cell): [phone] Patient seen in collaboration with Dr. Martinez. Please see addendum. History of Present Illness Chief Complaint: Generalized weakness, lower extremity swelling Primary Care Provider: [facility] This is an 80-year-old female with PMH of type 2 diabetes, hypertension, depression, anxiety and arthritis who resides at [facility] and presents with generalized weakness and low heart rate. Patient has dementia, so history primarily obtained from daughter over the phone. Anuradha was a longtime re sident of [facility] and transitioned to assisted care facility in 2017. Had previously followed with [facility] for medical care. Patient was adopted, so family history is unknown. Daughter is not aware of patient having any surgeries in the past. Was never under the care of a sas clinical programmer and denies any known coronary events in the past. Did have a valvular abnormality but daughter is unclear on what it is. At baseline, patient has vascular dementia with behavioral disturbance. Is usually oriented to self and place but not to time or situation. Has ambulatory dysfunction with frequent falls. Daughter was made aware of 2 falls in the past week. Per [facility] staff, patient was experiencing generalized weakness and lower extremity swelling over the course of the last few days. Was noted to have a very low pulse rate today and was complaining of difficulty ambulating and was brought to ED for further evaluation. Endorsing some weakness and dyspnea on exertion. Denies any lightheadedness, chest pain, abdominal pain. ROS limited secondary to patient's cognitive state. Allergies Allergy/AdvReac Type Severity Reaction Status Date / Time diazepam Allergy Unknown LISTED BY Verified 11/05/20 12:12 MD ADVERSE RX meperidine Allergy Unknown Verified 11/05/20 12:12 Home Medications Medication Instructions Recorded Confirmed Type cholecalciferol (vitamin D3) 2,000 unit PO QAM 05/27/19 11/05/20 History [Vitamin D3] diltiazem HCl 300 mg PO HS 05/27/19 11/05/20 History donepezil 5 mg PO QAM 05/27/19 11/05/20 History naproxen sodium 220 mg PO BID 05/27/19 11/05/20 History sertraline 50 mg PO QAM 05/27/19 11/05/20 History sertraline 100 mg PO QAM 05/27/19 11/05/20 History simvastatin 40 mg PO HS 05/27/19 11/05/20 History trazodone 25 mg PO HS 05/27/19 11/05/20 History acetaminophen [Tylenol] 650 mg PO Q4H PRN 11/05/20 11/05/20 History lisinopril 20 mg PO QAM 11/05/20 11/05/20 History loperamide 2 mg PO Q4H PRN 11/05/20 11/05/20 History lorazepam 1 mg PO TID 11/05/20 11/05/20 History ondansetron 4 mg PO Q6H PRN 11/05/20 11/05/20 History Past Med/Surg History Medical History Anxiety Depression Hypercholesterolemia Hypertension Hyponatremia Type 2 diabetes mellitus Surgical History No significant past surgical history Family History (Updated 11/05/20 @ 14:04 by Claudia Hathaway PA-C) Other Family history not known due to adoption No pertinent family history in first degree relatives Social History (Updated 11/05/20 @ 14:04 by Claudia Hathaway PA-C) Smoking Status: Never smoker Hx Alcohol Use: No Hx Substance Use: No Preferred Language: Thai Communication Ability: Effective Tray Line Worker Required: No Beliefs That Will Affect Care: None marital status: / Current Living Situation: Snf Other Information That Helps Us Care for You: No Feels Safe at Home: Yes Safety Concerns: Feels Safe At This Time Assistive Devices: Denture - Upper, Glasses, Oxygen - Continuous and Walker Review of Systems Review of Systems: Limited ROS in HPI. Unable to obtain full due to cognitive status Physical Exam Physical Exam: General Appearance: vitals as above, NAD, sitting up in bed, confused, intermittently agitated, conversing easily Head: normocephalic, atraumatic Eyes: normal inspection, PERRL, conjunctivae normal, anicteric sclerae ENT: external ear and nose normal, oropharynx normal Neck: normal visual inspection, trachea midline, no thyromegaly Respiratory: normal respiratory effort, diminished lung sounds, no wheeze, rales, rhonchi. No accessory muscle use Cardiovascular: bradycardic rate, irregular, no murmur, normal peripheral pulses, 1+ BLE edema. Vessels: no JVD Chest: normal inspection of chest Abdomen/GI: normal bowel sounds, soft, mild diffuse TTP, no hepatosplenomegaly Extremities/Musculoskeletal: no cyanosis or clubbing, extremities motor stre ngth 5/5 Neurologic: PERRL, EOMI, accommodation nl, no face palsy, no dysarthria, CN's II-XI intact bilaterally and moves all extremities Psychiatric: A+O to person and place, not to situation or time, intermittent agitation Skin: no rashes, normal color, warm/dry Results & Data Results & Data ([place]) Vital Signs (Past 12 Hours) Vital Signs Temp Pulse Pulse Resp BP BP Pulse Ox 11/05/20 11:58 37 L 16 136/76 96 11/05/20 11:32 94 11/05/20 10:59 89 L 11/05/20 10:44 36.9 C 35 L 22 138/76 90 Laboratory Results Short CBC 11/05/20 Range/Units 11:00 WBC 8.92 (4.8-10.8) K/uL Hgb 11.4 L (12.0-16.0) g/dL Hct 33.8 L (37-47) % Plt Count 296 (130-400) K/uL BMP 11/05/20 11:00 Sodium 136 Potassium 4.9 Chloride 108 H Carbon Dioxide 22 BUN 42 H Creatinine 1.60 H Glucose 176 H Calcium 8.8 Cardiac Enzymes 11/05/20 Range/Units 11:00 Troponin I < 0.015 (0-0.045) ng/ml Liver Function 11/05/20 Range/Units 11:00 Total Bilirubin 0.5 (0.2-1) mg/dl AST 15 (15-37) U/L ALT 21 (12-78) U/L Alkaline Phosphatase 99 (45-117) U/L Albumin 3.6 (3.4-5.0) gm/dl Diagnostic Findings CXR: IMPRESSION: 1. Elevation of interstitium and patchy basilar airspace opacities with a small right pleural effusion. Diagnostic considerations include congestive failure with lower lung zone edema versus an infectious/inflammatory process. Clinical and radiographic follow-up is recommended. CT abd/pelvis: IMPRESSION: 1. Moderate right pleural effusion and small left pleural effusion 2. Gallbladder distention. Subtle tense gallbladder wall sign but no evidence of gallbladder wall thickening. Gallbladder sonography might be considered in follow-up. 3. No evidence of bowel obstruction. No evidence of free air 4. Bilateral perinephric stranding. No renal, ureteral, or bladder calculi identified 5. Normal appendix. No evidence of acute diverticulitis 6. Low volume of free intraperitoneal fluid Supervising Physician Co-Signing Physician Notes I saw this patient with the physician assistant branch manager, I participated in the history, physical, review of systems, and physical exam. I reviewed the medications with the patient and the physician assistant branch manager and helped reconcile the medications. I helped take a detailed family and social history as well. I formulated the assessment and plan personally with the physician assistant branch manager and went over it with the patient. ROS-No Headache, No Visual Changes, No Nausea, No Vomiting, No Fever, No Chills, No Neck Pain or Stiffness, No Chest Pain, No Palpitations, No SOB, Positive [place], No Cough, No Sputum, No Wheezing, No Abdominal Pain, No Diarrhea, No Hematemesis, No Hemoptysis, No Unexpected Weight Loss, No Flank pain, No Melena, No Hematochezia, No Frequency, No Urgency, No Burning, No Hematuria, No Rashes, No Diaphoresis. Appetite is Normal Physical Exam Gen-AAO x 3, NAD, Afebrile Head-NCAT, EOMI, PERRLA, Anicteric Sclera, No Posterior Pharyngeal Erythema Neck-Supple, No JVD, No Thyromegaly, No Masses, No LAD, No Bruits Lungs-Clear to Auscultation Bilaterally, No Rales, No Rhonchi, No Wheezing, No Crepitus Chest-Bradycardic, No S4, +S1, +S2, No S3, No Murmurs, No Rubs, No Gallops, No Ectopy Abdomen-Soft, Bowel Sounds Present, Non Tender, Non Distended, No Hepatomegaly, No Splenomegaly, No Palpable Masses, No Rebound, No Rigidity, No Guarding Musculoskeletal-Full Range of Motion Bilaterally, No CVAT Extremities-No Cyanosis, No Clubbing, No Edema Nuero-Cranial Nerves II-XII grossly intact, Motor WNL, DTRs WNL, Strength WNL, Non Focal Psych-Normal Mood
[2020-11-05] MEDS ORDERED: ATROPINE SULFATE 0.1 MG/ML 10ML SYR IV STA (12:47)
--- NOTE | 2020-11-05 12:53 | Cardiology Consultation ---
Date of Consultation November 05, 2020 Assessment & Plan (1) Third degree heart block: (2) Weakness: (3) Acute kidney injury: (4) Dementia: (5) Hypertension: It was my pleasure to see Mrs. Wolff in emergent cardiac consultation today. The pathophysiology of third-degree heart block was discussed with the patient and her daughter. Initial blood tests are unremarkable for any possible cause of her heart block. She is on calcium channel juan as an outpatient and I have ordered that to be reversed with calcium in the emergency department. Unfortunately there was not a significant improvement of her rates with this. Likely she has remained hemodynamically stable. External pacer pads are in place but have not been used. A 2D echocardiogram will be obtained. Treatment options were discussed with the patient and her daughter including external pacing, temporary pacemaker and permanent pacemaker placement. The patient states that she is not interested in undergoing any invasive procedures. A lengthy conversation was had with her daughter by phone. She did clarify that the patient is DNR. She would like to avoid permanent pacemaker placement at this time and discuss this further with her family members. She will attempt to travel from [place] at this time to be at her mother's bedside. We will attempt to improve her rates with peripheral dopamine at this time. We will observe in the ICU and external pacing may be used if absolutely necessary. On follow-up conversations with her daughter, she would prefer that her mother be made comfort care. The patient is in agreement with this. She will be transferred from the ICU to [facility] and her family will be traveling to see her. A total of 80 minutes was spent and critical care time including seeing the patient at the bedside and discussion with her daughter. History of Present Illness Reason for Consultation: Complete heart block Requesting Physician: Dr. Taylor Attending Physician: Claudia Hathaway PA-C History of Present Illness It was my pleasure to see Mrs. Wolff in emergent cardiac consultation today November 05, 2020. She is a very pleasant yet significantly demented 80-year-old woman who is transferred from her group home today with reports of increasing fatigue, edema and weakness. Currently the patient does not remember why she was sent to the hospital and states that she feels okay except for some abdominal discomfort secondary to chronic excoriations. Unfortunately, only [facility] medical records are available at this time. Upon arrival she was found to be in third-degree heart block but hemodynamically stable with a systolic blood pressure in the 130s to 40s. Cardiology was consulted and seen at the bedside. Again, she states that she feels fine at this point and does not remember why she was sent to the emergency department. I did discuss with her daughter, Farnaz, by phone clinical presentation. She was able to elaborate on the significant degree of dementia that her mother is suffering. She denies any cardiac history of the patient but there is a signif icant family history of mitral valve prolapse. Farnaz currently lives in [place]. Allergies Allergy/AdvReac Type Severity Reaction Status Date / Time diazepam Allergy Unknown LISTED BY Verified 11/05/20 12:12 MD ADVERSE RX meperidine Allergy Unknown Verified 11/05/20 12:12 Home Medications Medication Instructions Recorded Confirmed Type cholecalciferol (vitamin D3) 2,000 unit PO QAM 05/27/19 11/05/20 History [Vitamin D3] diltiazem HCl 300 mg PO HS 05/27/19 11/05/20 History donepezil 5 mg PO QAM 05/27/19 11/05/20 History naproxen sodium 220 mg PO BID 05/27/19 11/05/20 History sertraline 50 mg PO QAM 05/27/19 11/05/20 History sertraline 100 mg PO QAM 05/27/19 11/05/20 History simvastatin 40 mg PO HS 05/27/19 11/05/20 History trazodone 25 mg PO HS 05/27/19 11/05/20 History acetaminophen [Tylenol] 650 mg PO Q4H PRN 11/05/20 11/05/20 History lisinopril 20 mg PO QAM 11/05/20 11/05/20 History loperamide 2 mg PO Q4H PRN 11/05/20 11/05/20 History lorazepam 1 mg PO TID 11/05/20 11/05/20 History ondansetron 4 mg PO Q6H PRN 11/05/20 11/05/20 History Patient History Medical History Anxiety Depression Hypercholesterolemia Hypertension Hyponatremia Type 2 diabetes mellitus Surgical History No significant past surgical history Family History Other Family history not known due to adoption No pertinent family history in first degree relatives Social History Smoking Status: Never smoker Hx Alcohol Use: No Hx Substance Use: No Preferred Language: Monegasque Communication Ability: Effective Computer Security Specialist Required: No Beliefs That Will Affect Care: None marital status: / Current Living Situation: [facility] Other Information That Helps Us Care for You: No Feels Safe at Home: Yes Safety Concerns: Feels Safe At This Time Assistive Devices: Denture - Upper, Glasses, Oxygen - Continuous and Walker Review of Systems Review of Systems: All systems reviewed & are unremarkable except as noted in HPI & below Physical Exam Physical Exam: General: Awake, alert and oriented x person and place. No acute distress. HEENT: Normocephalic, atraumatic. Pupils equal, round and reactive to light and accommodation. Extraocular muscles are intact. Anicteric sclera. Moist mucous membranes. Neck: No JVD. No bruit. Cardiovascular: Regular but very bradycardic. Positive S-4. Normal S-1 and S- 2. No S-3. No murmurs or rubs. Pulmonary: Clear to auscultation B/L. No rales, rhonchi or wheezing Abdomen: Bowel sounds x 4, soft. No rebound, guarding or tenderness. No organomegaly. Extremities: No clubbing, cyanosis or edema. +2 pedal pulses bilaterally. Skin: Warm and dry. Results & Data ([facility]) Vital Signs (Past 12 Hours) Vital Signs Temp Pulse Pulse Resp BP BP Pulse Ox 11/05/20 11:58 37 L 16 136/76 96 11/05/20 11:32 94 11/05/20 10:59 89 L 11/05/20 10:44 36.9 C 35 L 22 138/76 90 Laboratory Results Laboratory Results - last 24 hr 11/05/20 11/05/20 11/05/20 11:00 11:00 11:00 WBC 8.92 RBC 3.43 L Hgb 11.4 L POC Hgb Hct 33.8 L POC Hct MCV 98.5 MCH 33.2 MCHC 33.7 RDW Std Deviation 46.1 RDW Coeff of Cedric 12.9 Plt Count 296 MPV 10.1 Immature Gran % (Auto) 0.2 Neut % (Auto) 72.6 Lymph % (Auto) 17.8 [place] % (Auto) 7.6 Eos % (Auto) 1.6 Baso % (Auto) 0.2 Neut # (Auto) 6.47 Lymph # (Auto) 1.59 [place] # (Auto) 0.68 H Eos # (Auto) 0.14 Baso # (Auto) 0.02 Immature Gran # (Auto) 0.02 PT 11.1 INR 1.1 APTT 24.6 PTT Ratio 0.9 POC Sodium Sodium 136 POC Potassium Potassium 4.9 POC Chloride Chloride 108 H Carbon Dioxide 22 POC Total CO2 Anion Gap 7.0 POC Anion Gap POC BUN BUN 42 H Creatinine 1.60 H POC Creatinine Est Cr Clr Drug Dosing 29.0 Est GFR ( Amer) 34.9 Est GFR (Non-Af Amer) 30.1 BUN/Creatinine Ratio 26.3 H Glucose 176 H POC Glucose (other) Calcium 8.8 POC Ioniz Calcium Cristhian Magnesium 2.9 H Total Bilirubin 0.5 AST 15 ALT 21 Alkaline Phosphatase 99 Troponin I < 0.015 Total Protein 6.6 Albumin 3.6 Globulin 3.0 Albumin/Globulin Ratio 1.2 TSH 3.610 Nasal Screen MRSA (PCR) Digoxin COVID-19 Eval Order SARS-CoV-2, RNA, NAAT 11/05/20 11/05/20 11/05/20 11:05 11:10 11:21 WBC RBC Hgb POC Hgb 11.6 L Hct POC Hct 34 L MCV MCH MCHC RDW Std Deviation RDW Coeff of Cedric Plt Count MPV Immature Gran % (Auto) Neut % (Auto) Lymph % (Auto) [place] % (Auto) Eos % (Auto) Baso % (Auto) Neut # (Auto) Lymph # (Auto) [place] # (Auto) Eos # (Auto) Baso # (Auto) Immature Gran # (Auto) PT INR APTT PTT Ratio POC Sodium 135 Sodium POC Potassium 4.9 Potassium POC Chloride 107 Chloride Carbon Dioxide POC Total CO2 22 L Anion Gap POC Anion Gap 12.0 L POC BUN 38 H BUN Creatinine POC Creatinine 1.5 H Est Cr Clr Drug Dosing Est GFR ( Amer) Est GFR (Non-Af Amer) BUN/Creatinine Ratio Glucose POC Glucose (other) 177 H Calcium POC Ioniz Calcium Cristhian 1.15 Magnesium Total Bilirubin AST ALT Alkaline Phosphatase Troponin I Total Protein Albumin Globulin Albumin/Globulin Ratio TSH Nasal Screen MRSA (PCR) Digoxin 0.1 L COVID-19 Eval Order Cancelled SARS-CoV-2, RNA, NAAT 11/05/20 11/05/20 11/05/20 11:21 11:21 14:30 WBC RBC Hgb POC Hgb Hct POC Hct MCV MCH MCHC RDW Std Deviation RDW Coeff of Cedric Plt Count MPV Immature Gran % (Auto) Neut % (Auto) Lymph % (Auto) [place] % (Auto) Eos % (Auto) Baso % (Auto) Neut # (Auto) Lymph # (Auto) [place] # (Auto) Eos # (Auto) Baso # (Auto) Immature Gran # (Auto) PT INR APTT PTT Ratio POC Sodium Sodium POC Potassium Potassium POC Chloride Chloride Carbon Dioxide POC Total CO2 Anion Gap POC Anion Gap POC BUN BUN Creatinine POC Creatinine Est Cr Clr Drug Dosing Est GFR ( Amer) Est GFR (Non-Af Amer) BUN/Creatinine Ratio Glucose POC Glucose (other) Calcium POC Ioniz Calcium Cristhian Magnesium Total Bilirubin AST ALT Alkaline Phosphatase Troponin I Total Protein Albumin Globulin Albumin/Globulin Ratio TSH Nasal Screen MRSA (PCR) Negative Digoxin COVID-19 Eval [facility] SARS-CoV-2, RNA, NAAT NEGATIVE Medications Administered Current Inpatient Medications Acetaminophen (Acetaminophen 325 Mg Tab) 650 mg PO Q6H PRN PRN Reason: Fever 37.8C or greater Stop: 12/05/20 16:07 Acetaminophen (Acetaminophen 650 Mg Supp) 650 mg MT Q6H PRN PRN Reason: Fever 37.8C or greater Stop: 12/05/20 16:07 Atropine Sulfate (Atropine Sulfate 1% Op Soln 5 Ml Btl) 4 drops SL Q1H PRN PRN Reason: Secretions or pulm congestion Stop: 12/05/20 16:07 Haloperidol (Haloperidol 1 Mg Tab) 1 mg PO Q4H PRN PRN Reason: Anxiety/Agitation Stop: 12/05/20 16:07 Last Admin: 11/05/20 16:52 Dose: 1 mg Documented by: Lorazepam (Ativan) 0.5 mg in 1 mls @ 1 mls/min IV Q4H PRN PRN Reason: Anxiety/Agitation Stop: 12/05/20 16:07 Lorazepam (Lorazepam 0.5 Mg Tab) 0.5 mg PO Q4H PRN PRN Reason: Anxiety/Agitation Stop: 12/05/20 17:27 Lorazepam (Ativan 1mg Homepack) homepack PO TID [facility] Stop: 12/05/20 20:59 Morphine Sulfate (Morphine Sulfate 5 Mg/0.25 Ml Udp) 5 mg PO Q3H PRN PRN Reason: Pain or Respiratory Distress Stop: 11/19/20 17:27 Ondansetron HCl (Ondansetron 4 Mg Od Tab) 4 mg SL Q4H PRN PRN Reason: Nausea And Vomiting Stop: 12/05/20 16:07 Ondansetron HCl (Ondansetron Inj 2 Mg/Ml 2 Ml Vial) 4 mg IV Q4H PRN PRN Reason: Nausea And Vomiting Stop: 12/05/20 17:27 Sertraline HCl (Sertraline Hcl 100 Mg Tablet) 100 mg PO QAM [facility] Stop: 12/06/20 08:59 Sertraline HCl (Sertraline Hcl 50 Mg Tablet) 50 mg PO QAM [facility] Stop: 12/06/20 08:59
[2020-11-05] MEDS: DOPamine 400MG / 250ML D5W IV ONE ×2 (13:08→13:30)
[2020-11-05] MEDS ORDERED: STAT IV Infusion **Titration per Protocol STA (13:13)
[2020-11-05] MEDS ORDERED: DOPamine / D5W 400 MG/250 ML BAG IV SCH (13:15)
[2020-11-05] MEDS ORDERED: ICU PROTOCOL FOR HYPERGLYCEMIA PRN (13:52)
--- NOTE | 2020-11-05 14:33 | Critical Care Consultation ---
Date of Consultation November 05, 2020 Assessment & Plan (1) Third degree heart block: (2) Pleural effusion: Impression: 80-year-old female admitted with weakness and found to be in third-degree heart block. Family has refused any specific interventions at this point time. She also has an incidentally noted right subpulmonic effusion. Recommendations: 1. Third-degree heart block: I discussed the case with the admitting hospitalist team and with cardiology. Family has apparently elected to not pursue any invasive or life-sustaining procedures. This would include placement of a temporary pacing wire. She was initially placed on dopamine to see if this would be beneficial however this is not really improved her heart rate and has resulted only in significant hypertension so I do not think this medication should be continued in the long-term. I discussed with cardiology other potential medications but it is not felt that any of these will be beneficial or indicated at this point time. Transvenous pacemaker would not be warranted if the patient is not willing to undergo permanent pacemaker implantation. Her initial reason for being admitted to the ICU was so the dopamine could be used however as this medication is now being discontinued, I do not think the patient requires ICU level care. In addition, the hospitalist team has been in contact with the patient's daughter and apparently we are now transitioning her to comfort measures so I think it is reasonable to transfer her out of the intensive care unit. 2. Pleural effusion: As the patient is not willing to undergo any intervention for her pacemaker, I would not recommend any intervention for the pleural effusion. Palliative care consultation is pending. Pulmonary critical care will sign off at this point time and defer additional interventions to the patient's primary admitting service. Feel free to contact us if we can be of additional assistance. Total of 45 minutes critical care time was spent including end-of-life discussions with the primary team and patient. Case also discussed with ICU nursing History of Present Illness Attending Physician: Koko Martinez DO History of Present Illness Asked by hospitalist to assist in management this patient admitted with third- degree heart block. History is obtained from discussion with the hospitalist BRIEN as well as review the electronic medical record. Patient is an 80-year-old female who comes from a alf. She has a history of advanced Alzheimer's/vascular dementia and apparently is not felt to be competent. She was brought to the emergency room with low heart rate. She is found to be in third-degree heart block. She was seen by cardiology. Apparently family was contacted. They live in [place]. They declined pacing measures so the patient was initiated on dopamine and admitted to the ICU. Her heart rate remains in the 20s to 30s. She is awake. She is now significantly hypertensive with blood pressures in the 160s to 170s. According to the PA, the patient's family members were apparently planning on driving from [place] to see their mother and requested that she be made comfort care. They were hopeful that they could arrive to see her. Allergies Allergy/AdvReac Type Severity Reaction Status Date / Time diazepam Allergy Unknown LISTED BY Verified 11/05/20 12:12 MD ADVERSE RX meperidine Allergy Unknown Verified 11/05/20 12:12 Home Medications Medication Instructions Recorded Confirmed Type cholecalciferol (vitamin D3) 2,000 unit PO QAM 05/27/19 11/05/20 History [Vitamin D3] diltiazem HCl 300 mg PO HS 05/27/19 11/05/20 History donepezil 5 mg PO QAM 05/27/19 11/05/20 History naproxen sodium 220 mg PO BID 05/27/19 11/05/20 History sertraline 50 mg PO QAM 05/27/19 11/05/20 History sertraline 100 mg PO QAM 05/27/19 11/05/20 History simvastatin 40 mg PO HS 05/27/19 11/05/20 History trazodone 25 mg PO HS 05/27/19 11/05/20 History acetaminophen [Tylenol] 650 mg PO Q4H PRN 11/05/20 11/05/20 History lisinopril 20 mg PO QAM 11/05/20 11/05/20 History loperamide 2 mg PO Q4H PRN 11/05/20 11/05/20 History lorazepam 1 mg PO TID 11/05/20 11/05/20 History ondansetron 4 mg PO Q6H PRN 11/05/20 11/05/20 History Patient History Medical History Anxiety Depression Hypercholesterolemia Hypertension Hyponatremia Type 2 diabetes mellitus Surgical History No significant past surgical history Family History (Updated 11/05/20 @ 14:04 by Claudia Hathaway PA-C) Other Family history not known due to adoption No pertinent family history in first degree relatives Social History (Updated 11/05/20 @ 14:04 by Claudia Hathaway PA-C) Smoking Status: Never smoker Hx Alcohol Use: No Hx Substance Use: No Preferred Language: Romanian Communication Ability: Effective Hoist Cylinder Loader Required: No Beliefs That Will Affect Care: None marital status: / Current Living Situation: Jail Other Information That Helps Us Care for You: No Feels Safe at Home: Yes Safety Concerns: Feels Safe At This Time Assistive Devices: Denture - Upper, Glasses, Oxygen - Continuous and Walker Review of Systems Review of Systems: Unobtainable due to cognitive status Physical Exam Physical Exam: General Appearance: vitals as above, NAD, sitting up in bed, confused, intermittently agitated, conversing easily Head: normocephalic, atraumatic Eyes: normal inspection, PERRL, conjunctivae normal, anicteric sclerae ENT: external ear and nose normal, oropharynx normal Neck: normal visual inspection, trachea midline, no thyromegaly Respiratory: normal respiratory effort, diminished lung sounds, no wheeze, rales, rhonchi. No accessory muscle use Cardiovascular: bradycardic rate, irregular, no murmur, normal peripheral pulses, 1+ BLE edema. Vessels: no JVD Chest: normal inspection of chest Abdomen/GI: normal bowel sounds, soft, mild diffuse TTP, no hepatosplenomegaly Extremities/Musculoskeletal: no cyanosis or clubbing, extremities motor strength 5/5 Neurologic: PERRL, EOMI, accommodation nl, no face palsy, no dysarthria, CN's II-XI intact bilaterally and moves all extremities Psychiatric: A+O to person and place, not to situation or time, intermittent agitation Skin: no rashes, normal color, warm/dry Results & Data Results & Data ([facility]) Vital Signs (Past 12 Hours) Vital Signs Temp Pulse Pulse Resp BP BP Pulse Ox 11/05/20 13:59 36.3 C L 42 L 18 186/55 H 95 11/05/20 13:55 30 L 16 128/68 94 11/05/20 13:18 30 L 16 130/68 93 11/05/20 12:45 29 L 16 138/72 94 11/05/20 11:58 37 L 16 136/76 96 11/05/20 11:32 94 11/05/20 10:59 89 L 11/05/20 10:44 36.9 C 35 L 22 138/76 90 Laboratory Results 11/05/20 11:00 11/05/20 11:00 Diagnostic Findings Chest x-ray was independently reviewed. It demonstrates a right subpulmonic effusion which is verified on CT of the abdomen and pelvis. Coding Level of Care Code Critical Care 1st 30-74 mins Diagnoses Third degree heart block I44.2 Pleural effusion J90
[2020-11-05] MEDS ORDERED: ACETAMINOPHEN 650 MG SUPP PR PRN (16:08)
[2020-11-05] MEDS ORDERED: ACETAMINOPHEN 325 MG TAB PO PRN (16:08)
[2020-11-05] MEDS ORDERED: haloperidoL 1 MG TAB PO PRN (16:08)
[2020-11-05] MEDS ORDERED: ATROPINE SULFATE 1% OP SOLN 5 ML BTL SL PRN (16:08)
[2020-11-05] MEDS ORDERED: ONDANSETRON 4 MG OD TAB SL PRN (16:08)
--- NOTE | 2020-11-05 16:47 | Palliative Care Consultation ---
Date of Consultation November 05, 2020 Assessment & Plan (1) Palliative care encounter: I spoke with Anuradha's daughter, Keerthi, on the phone. She has been updated about her mother's condition and has been clear that Anuradha would not want further intervention at this time. Keerthi reports that her father heart disease and Anuradha specifically said at the time that she would not want a pacemaker. She has an advance directive with Keerthi says indicates no to all treatments except comfort directed care. She lives in [place] and is making arrangements to travel to [place] by car. I reassured her that we will keep her updated and that her mother is comfortable at this time. Palliative care will follow. (2) Third degree heart block: (3) Pleural effusion: History of Present Illness Reason for Consultation: comfort care Requesting Physician: Claudia Hathaway Attending Physician: Koko Martinez DO History of Present Illness 80 yo personal long term resident with dementia who was admitted with weakness and low heart rate. She is found to have third degree heart block with pulse in the 30s. She did have a trial of dopamine in the ICU but became hypertensive and her heart rate remained low. She is awake and alert though confused. She is somewhat upset that she is here and not in her bed at home. She denies pain or dyspnea. She does c/o headache. She is noted to have bilateral pleural effusions on chest xray. Her troponin was negative. She has CKD with GFR today of 30. Allergies Allergy/AdvReac Type Severity Reaction Status Date / Time diazepam Allergy Unknown LISTED BY Verified 11/05/20 12:12 MD ADVERSE RX meperidine Allergy Unknown Verified 11/05/20 12:12 Home Medications Medication Instructions Recorded Confirmed Type cholecalciferol (vitamin D3) 2,000 unit PO QAM 05/27/19 11/05/20 History [Vitamin D3] diltiazem HCl 300 mg PO HS 05/27/19 11/05/20 History donepezil 5 mg PO QAM 05/27/19 11/05/20 History naproxen sodium 220 mg PO BID 05/27/19 11/05/20 History sertraline 50 mg PO QAM 05/27/19 11/05/20 History sertraline 100 mg PO QAM 05/27/19 11/05/20 History simvastatin 40 mg PO HS 05/27/19 11/05/20 History trazodone 25 mg PO HS 05/27/19 11/05/20 History acetaminophen [Tylenol] 650 mg PO Q4H PRN 11/05/20 11/05/20 History lisinopril 20 mg PO QAM 11/05/20 11/05/20 History loperamide 2 mg PO Q4H PRN 11/05/20 11/05/20 History lorazepam 1 mg PO TID 11/05/20 11/05/20 History ondansetron 4 mg PO Q6H PRN 11/05/20 11/05/20 History Patient History Medical History Anxiety Depression Hypercholesterolemia Hypertension Hyponatremia Type 2 diabetes mellitus Surgical History No significant past surgical history Family History Other Family history not known due to adoption No pertinent family history in first degree relatives Social History Smoking Status: Never smoker Hx Alcohol Use: No Hx Substance Use: No Preferred Language: Portuguese Communication Ability: Effective Booth Cashier Required: No Beliefs That Will Affect Care: None marital status: / Current Living Situation: Custodial Other Information That Helps Us Care for You: No Feels Safe at Home: Yes Safety Concerns: Feels Safe At This Time Assistive Devices: Denture - Upper, Glasses, Oxygen - Continuous and Walker Review of Systems Review of Systems: Unobtainable due to cognitive status [place] Symptom Assessment Scale Pain 1/3 Dyspnea 0/3 at rest Anxiety 2/3 Nausea 0/3 Drowsiness 0/3 Physical Exam Constitutional: comfortable; no acute distress ENMT: Mouth: + dry oral mucous membranes Respiratory: normal respiratory effort; no labored breathing Cardiovascular: Rate/Rhythm: + bradycardic (irregular, bigeminy) Extremities: + edema Gastrointestinal (Abdomen): Inspection/Auscultation: abdomen not distended Percussion/Palpation: abdomen nontender Musculoskeletal: Extremities: extremities normal to inspection Skin: no rashes, warm and dry Neurologic: moves all extremities, awake and + confused Results & Data ([facility]) Vital Signs (Past 12 Hours) Vital Signs Temp Pulse Pulse Resp BP BP Pulse Ox 11/05/20 15:41 98.1 F 42 L 24 132/64 92 11/05/20 14:45 32 H 94 11/05/20 14:30 31 L 16 93 11/05/20 14:15 29 L 19 93 11/05/20 14:00 33 L 15 11/05/20 13:59 97.3 F L 42 L 18 186/55 H 95 11/05/20 13:55 30 L 16 128/68 94 11/05/20 13:51 35 L 11 L 186/55 H 11/05/20 13:49 38 L 19 210/66 H 11/05/20 13:47 59 L 17 11/05/20 13:30 26 L 13 94 11/05/20 13:21 39 L 18 92 11/05/20 13:18 30 L 16 130/68 93 11/05/20 13:15 39 L 20 94 11/05/20 13:00 28 L 11 L 97 11/05/20 12:45 29 L 16 138/72 94 11/05/20 11:58 37 L 16 136/76 96 11/05/20 11:32 94 11/05/20 10:59 89 L 11/05/20 10:44 98.4 F 35 L 22 138/76 90 PG Care Time/CCT Total # of Minutes Spent Total Time Spent with Patient: Total time spent is greater than 50% in coordination of care (as documented) at patient's floor/unit and/or counseling patient: Total time spent 45 min with more than 50 % of time spent on goals of care, prognosis, family support. Coding Level of Care Code 59503 Inpt Consult Level 2 Diagnoses Palliative care encounter Z51.5 Third degree heart block I44.2 Pleural effusion J90
[2020-11-05] MEDS ORDERED: LORazepam 0.5 MG TAB PO PRN (17:28)
[2020-11-05] MEDS ORDERED: MoRPHine SULFATE 5 MG/0.25 ML UDP PO PRN (17:28)
[2020-11-05] MEDS: LORazepam 0.5 MG/1 ML VIAL IV PRN (18:48)
[2020-11-05] MEDS: LORazepam 1 MG TAB PO SCH (20:28)
[2020-11-06] MEDS: LORazepam 0.5 MG/1 ML VIAL IV PRN (03:30)
[2020-11-06] MEDS: ONDANSETRON INJ 2 MG/ML 2 ML VIAL IV PRN ×3 (08:30→20:11)
[2020-11-06] MEDS: LORazepam 1 MG TAB PO SCH (08:55)
[2020-11-06] MEDS ORDERED: SERTRALINE HCL 100 MG TABLET PO SCH (09:00)
[2020-11-06] MEDS ORDERED: SERTRALINE HCL 50 MG TABLET PO SCH (09:00)
[2020-11-06] MEDS ORDERED: MoRPHine SULFATE 2 MG/ML CARP IV PRN (09:26)
[2020-11-06] MEDS ORDERED: METOCLOPRAMIDE HCL INJ 5 MG/ML 2 ML VIAL IV PRN (09:30)
[2020-11-06] MEDS ORDERED: PROMETHAZINE HCL 25 MG in SODIUM CHLORIDE 0.9% 50 ML IV ONE (09:45)
[2020-11-06] MEDS: HALOPERIDOL ORAL SOLN 2 MG/ML PO PRN ×2 (09:55→15:42)
[2020-11-06] MEDS ORDERED: LORazepam 0.5 MG TAB SL PRN (09:57)
--- NOTE | 2020-11-06 10:29 | Palliative Care Progress Note ---
Date of Service November 06, 2020 Assessment & Plan (1) Nausea: Not responsive to zofran. Add haldol oral concentrate liquid prn (2) Pain: Generalized pain with decreased mobility. She is denying chest pain. Continue morphine prn. (3) Anxiety: She is on sertraline and routine ativan. She likely did not get sertraline with emesis this morning. Changed ativan to SL if she is unsafe to swallow meds (4) Palliative care encounter: She is comfort care only. Reviewed medications and plan of care with RN. I did speak to her daughter, Keerthi, on the phone to update her. She is enroute from [place] to see her mother. She is aware that Anuradha may have sudden and would like to be updated with changes in condition. Episode this morning concerning for further decline. Monitor for today. If she is stable, plan would be to return [facility] with hosp[facility]. Admission and Anticipated Discharge Date Admission Date: November 05, 2020 Subjective Feeling nauseous this morning. Also c/o pain all over. During visit Anuradha became unresponsive for 2-3 minutes while sitting on edge of bed. She aroused a few minutes later with emesis and diaphoresis. She is now alert and answering questions. Review of Systems Review of Systems: Unobtainable due to cognitive status [place] Symptom Assessment Scale PainAD 2/3 Dyspnea 1/3 Nausea 2/3 Anxiety 1/3 Palliative Performance Score 30% Physical Exam Constitutional: + ill appearing and + diaphoretic; + uncomfortable ENMT: Mouth: + dry oral mucous membranes Respiratory: + uses accessory muscles Cardiovascular: Radial pulse 30 Musculoskeletal: Extremities: extremities normal to inspection Skin: cool, no mottling Neurologic: + confused PG Care Time/CCT Total # of Minutes Spent Total Time Spent with Patient: Total time spent is greater than 50% in coordination of care (as documented) at patient's floor/unit and/or counseling patient: Total time spent is 50 minutes with more than 50% of time spent on symptom management, family support and communication, coordination of care. Coding Level of Care Code 32816 Subseq Hosp Care Lvl 3 Diagnoses Nausea R11.0 Pain R52 Anxiety F41.9 Palliative care encounter Z51.5
[2020-11-06] MEDS: LORazepam 1 MG TAB SL SCH ×2 (16:18→20:15)
--- NOTE | 2020-11-06 16:37 | Hospitalist Progress Note ---
Date of Service November 06, 2020 Assessment & Plan (1) Third degree heart block: Third-degree heart block Acute kidney injury Hypertension Dementia Type 2 diabetes mellitus Anxiety Depression Chronic hyponatremia Pleural effusion Family preferred not to pursue any invasive or life-sustaining procedures given co-morbidities. Dopamine discontinued Appreciate Critical Care, cardiology and palliative care input Currently on comfort measures only No distress on exam Continue current medications Advance diet as tolerated Admission and Anticipated Discharge Date Admission Date: November 05, 2020 Subjective Patient is seen and examined at bedside History unreliable given history of dementia No distress on exam On comfort measures only Sitter at bedside Had an episode of nausea with syncope this morning as per RN Patient states feeling very tired Poor oral intake Denies chest pain, dyspnea, dizziness, abd pain Review of Systems Review of Systems: All systems reviewed & are unremarkable except as noted in HPI & below Physical Exam Physical Exam: Physical Exam: Vitals signs as noted above General Appearance:Moderately built and nourished, no apparent distress Head: normocephalic, Atraumatic Eyes: normal inspection, EOMI Neck: supple, Trachea midline Respiratory/Chest: Normal breath sounds, CTA Cardiovascular: S1, S2, No murmur, +Bradycardia Abdomen/GI:Soft, Non tender, Bowel sounds present Extremities/Musculoskelatal:normal inspection, Trace B/L LE edema Neurologic/Psych:Alert, awake, grossly no focal neurological deficits, +Dementia Skin: normal color, warm
--- NOTE | 2020-11-06 22:05 | Electrocardiogram Report ---
Test Reason : Blood Pressure : / mmHG Vent. Rate : 041 BPM Atrial Rate : 041 BPM P-R Int : 000 ms QRS Dur : 124 ms QT Int : 632 ms P-R-T Axes : 000 123 239 degrees QTc Int : 521 ms Sinus rhythm with complete heart block with ventricular escape complexes Premature ventricular complexes Abnormal ECG When compared with ECG of 27-MAY-2019 11:13, Complete heart block is now present Confirmed by Darin Smith ([id number]) on 11/06/2020 10:05:01 PM Referred By: Confirmed By:Darin Smith
--- NOTE | 2020-11-06 22:19 | Electrocardiogram Report ---
Test Reason : Blood Pressure : / mmHG Vent. Rate : 044 BPM Atrial Rate : 042 BPM P-R Int : 000 ms QRS Dur : 128 ms QT Int : 650 ms P-R-T Axes : 000 068 052 degrees QTc Int : 555 ms Sinus rhythm with complete heart block with ventricular escape complexes and with occasional Prematur e ventricular complexes Abnormal ECG When compared with ECG of 05-NOV-2020 10:59, (unconfirmed) No significant change Confirmed by Darin Smith ([id number]) on 11/06/2020 10:19:16 PM Referred By: REFERRED SELF Confirmed By:Darin Smith
--- NOTE | 2020-11-07 09:34 | Discharge Summary ---
Date of Service November 07, 2020 Admission HPI Per Admitting Provider This is an 80-year-old female with PMH of type 2 diabetes, hypertension, depression, anxiety and arthritis who resides at [facility] and presents with generalized weakness and low heart rate. Patient has dementia, so history primarily obtained from daughter over the phone. Anuradha was a longtime resident of [place] and transitioned to assisted care facility in 2017. Had previously followed with [facility] for medical care. Patient was adopted, so family history is unknown. Daughter is not aware of patient having any surgeries in the past. Was never under the care of a research biologist and denies any known coronary events in the past. Did have a valvular abnormality but daughter is unclear on what it is. At baseline, patient has vascular dementia with behavioral disturbance. Is usually oriented to self and place but not to time or situation. Has ambulatory dysfunction with frequent falls. Daughter was made aware of 2 falls in the past week. Per longterm staff, patient was experiencing generalized weakness and lower extremity swelling over the course of the last few days. Was noted to have a very low pulse rate today and was complaining of difficulty ambulating and was brought to ED for further evaluation. Endorsing some weakness and dyspnea on exertion. Denies any lightheadedness, chest pain, abdominal pain. ROS limited secondary to patient's cognitive state. Admission Exam Per Admitting Provider Physical Exam Physical Exam: General Appearance: vitals as above, NAD, sitting up in bed, confused, intermittently agitated, conversing easily Head: normocephalic, atraumatic Eyes: normal inspection, PERRL, conjunctivae normal, anicteric sclerae ENT: external ear and nose normal, oropharynx normal Neck: normal visual inspection, trachea midline, no thyromegaly Respiratory: normal respiratory effort, diminished lung sounds, no wheeze, rales, rhonchi. No accessory muscle use Cardiovascular: bradycardic rate, irregular, no murmur, normal peripheral pulses, 1+ BLE edema. Vessels: no JVD Chest: normal inspection of chest Abdomen/GI: normal bowel sounds, soft, mild diffuse TTP, no hepatosplenomegaly Extremities/Musculoskeletal: no cyanosis or clubbing, extremities motor strength 5/5 Neurologic: PERRL, EOMI, accommodation nl, no face palsy, no dysarthria, CN's II-XI intact bilaterally and moves all extremities Psychiatric: A+O to person and place, not to situation or time, intermittent agitation Skin: no rashes, normal color, warm/dry Principal Diagnosis Third-degree heart block Acute kidney injury Hypertension Dementia Type 2 diabetes mellitus Anxiety Depression Chronic hyponatremia Pleural effusion Discharge Data Allergies Allergy/AdvReac Type Severity Reaction Status Date / Time diazepam Allergy Unknown LISTED BY Verified 11/05/20 12:12 MD ADVERSE RX meperidine Allergy Unknown Verified 11/05/20 12:12 Consultations 11/05/20 12:14 ED Decision to Admit Stat 11/05/20 13:52 Consult Cardiology Routine Consult Case Management - Discharge Planning Routine 11/05/20 14:51 Consult Palliative Care Routine 11/05/20 17:28 Consult Case Management - Discharge Planning Routine Consult Palliative Care Routine Procedures Performed CT ABD:1. Moderate right pleural effusion and small left pleural effusion 2. Gallbladder distention. Subtle tense gallbladder wall sign but no evidence of gallbladder wall thickening. Gallbladder sonography might be considered in follow-up. 3. No evidence of bowel obstruction. No evidence of free air 4. Bilateral perinephric stranding. No renal, ureteral, or bladder calculi identified 5. Normal appendix. No evidence of acute diverticulitis 6. Low volume of free intraperitoneal fluid CXR: Elevation of interstitium and patchy basilar airspace opacities with a small right pleural effusion. Diagnostic considerations include congestive failure with lower lung zone edema versus an infectious/inflammatory process. Clinical and radiographic follow-up is recommended. Ordered Studies 11/05/20 11:07 CT abd pelvis wo con Stat Hospital Course (1) Third degree heart block: Third-degree heart block Acute kidney injury Hypertension Dementia Type 2 diabetes mellitus Anxiety Depression Chronic hyponatremia Pleural effusion Family preferred not to pursue any invasive or life-sustaining procedures given co-morbidities. Dopamine discontinued Appreciate Critical Care, cardiology and palliative care input Currently on comfort measures only No distress on exam Continue current medications Advance diet as tolerated Total Time Total Time Spent Total Time Spent (In Minutes): 25 minutes Total Time Includes: Examination of the Patient, Discharge Planning, Medication Reconciliation, Communication With Other Providers and Other Discharge Plan Discharge Items Patient Disposition: Discharge Diagnosis: Third-degree heart block Acute kidney injury Hypertension Dementia Type 2 diabetes mellitus Anxiety Depression Chronic hyponatremia Pleural effusion Addtl Attending Provider Instructions: Family will be updated.
== END 2020-11-07 10:35 | disposition expired ==
LOC: ED 10:54 → 1E 12:39 → INTOOBSV 12:39 → SUATTDRO 12:39 → 1E 13:55 → 3N 17:26